=== PATIENT | male | born 1990 | race Caucasian/White ===

== ENCOUNTER 2021-06-15 10:19 | Emergency (ER) | payer BC, SELFPAY ==
[2021-05-21 16:57] VITALS: BMI 33.5
[2021-06-15 10:20] VITALS: BP 165/98; PULSE 82; RESP 16; TEMP 36.3; O2SAT 98; BMI 32.5
--- NOTE | 2021-06-15 10:36 | EX.ED.DYSGE1 ---
HPI History of Present Illness Chief Complaint: Anxiety Detail of Chief Complaint: Anxiety and panic attacks ongoing for about a year Informant: patient Narrative Narrative: Patient presents to the emergency department complaint of frequent panic attacks. Patient states that he is been dealing with them for over a year. Patient states that he used to drink heavily but really has mostly stopped drinking although he did have 2 beers yesterday. Patient will get episodes where he feels very jittery and short of breath and chest feels real tight. Patient states that he will be quite labile in mood and then states that he cannot remember events or what happened but he is awake and functioning. He denies any seizure activity. Denies recent illness otherwise. Patient states he cannot get into any mental health providers for follow-up. Patient states that his primary care physician at one point prescribed him bupropion but after day 8 he started feeling suicidal on it and stopped taking it. Patient currently denies suicidal ideations. Prior similar symptoms: Yes PFSH PFSH Medical History (Updated 06/15/21 @ 11:[address] Matthieu Rodriguez, DO) Alcohol abuse with withdrawal Depression Home Medications albuterol sulfate 90 mcg/actuation aerosol inhaler 2 puff INHALATION Q4H PRN #6.7 g 04/30/21 [Rx Last Taken Unknown] lorazepam [Ativan] 1 mg PO TID PRN #14 tab 06/15/21 [Rx Last Taken Unknown] omeprazole 20 mg PO DAILY 06/15/21 [History Last Taken Unknown] Allergy/AdvReac Type Severity Reaction Status Date / Time No Known Allergies Allergy Verified 06/15/21 10:20 Family History (Updated 05/21/21 @ 20:16 by Jeaneth Norris NP, [employer]) Other Anxiety Social History Smoking Status: Current every day smoker tobacco type: cigarettes ROS ROS ED Constitutional Constitutional ED: Reports systems reviewed and no addt'l complaints, except as documented; Denies body ache(s), change in weight or chills Eyes Eyes: Denies acute decrease in peripheral vision, change in vision, double vision or loss of vision ENT ENT ED: Reports none; Denies ear pain, lip swelling, loss taste/smell, neck pain, otalgia or sore throat Cardiovascular Cardiovascular: Reports none and chest pain; Denies abdominal pain, chest pain with activity, leg edema, lightheadedness, palpitations, rapid heart rate or syncope Respiratory/Chest Respiratory/Chest: Reports none and dyspnea; Denies change in mental status, dry cough, hemoptysis, shortness of breath at rest or shortness of breath with exertion Gastrointestinal Gastrointestinal: Reports none; Denies abdominal pain, change in stool character, diarrhea, hematemesis, hematochezia, melena, rectal bleeding or vomiting Genitourinary Genitourinary ED: Reports none; Denies abdominal discomfort, anuria, dysuria, genital pain or polyuria Musculoskeletal Musculoskeletal: Reports none; Denies arthralgias, back pain, difficulty walking, extremity pain, muscle weakness or myalgias Integumentary Reports none; Denies abscess or rash Neurologic Neurologic: Reports none; Denies abnormal gait, confusion, focal weakness, frequent falls, headache(s), loss of vision, numbness, paresthesias, radicular pain, vertigo or weakness Psychiatric Psychiatric: Reports systems reviewed and no addt'l complaints, except as documented, none and anxiety; Denies behavioral changes, confusion, difficulty concentrating, hallucinations, suicidal ideation, tactile hallucinations or visual hallucinations Endocrine Endocrinology: Denies none, cold intolerance, excessive sweating, fatigue or heat intolerance Hematologic/Lymphatic Hematologic/Lymphatic: Reports none; Denies anemia, easy bleeding or easy bruising Allergic/Immunologic Allergic/Immunologic ED: Denies as per HPI, none, lip swelling, mouth swelling, throat swelling, tongue swelling or hives EXAM Physical Exam Const Vital Signs: 06/15/21 10:20 Temperature 97.3 F L Temperature Source Temporal Pulse Rate 82 Respiratory Rate 16 Blood Pressure 165/98 H Blood Pressure Mean 120 Pulse Ox 98 Oxygen Delivery Method Room Air Positive well nourished and well developed General Appearance ED: well developed and NAD HEENT Reports TM's clear and moist mucous membranes normocephalic and atraumatic; Negative for trauma or tenderness Tympanic Membrane ED: Yes TM's clear Eyes PERRL and EOMs intact bilaterally General Eye ED: Negative for pale conjunctiva or scleral icterus Neck no lymphadenopathy, supple and no JVD General: Negative for tenderness Chest Wall inspection of chest normal and palpation of chest normal Chest: Negative for tenderness Resp normal respiratory effort and clear to auscultation bilaterally Effort and Inspection: Negative for respiratory distress or pain with movement Auscultation: Negative for rhonchi, wheezes or diminished lung sounds Cardio regular rate, regular rhythm, S1 normal heart sound, S2 normal heart sound and no murmurs Peripheral Pulses: pulses 2+ throughout GI normal to inspection, nondistended, normoactive bowel sounds, soft to palpation, non-tender, non-distended and no masses Back/Spine no CVA tenderness and no thoracic nor lumbar tenderness Extremity normal to inspection General Extremety ED: Negative for edema General Extremity: Negative for edema Neuro oriented x3, CN's II-XII intact bilaterally, no sensory deficits noted and gait normal Sensorium / Orientation: awake, alert, oriented to person, oriented to place and oriented to time Motor Exam: strength 5/5 throughout and strength abnormal Psych mental status grossly normal Skin no rashes or lesions noted and no wounds MDM MDM MDM Narrative Medical decision making narrative: Patient was evaluated by social media executive in the department and was able to arrange outpatient therapy for him starting in 2 days. Patient also received 1 mg of Ativan p.o. and he did feel improved with that. Patient will be given a prescription for Ativan. Lab Data Attestation: I reviewed the patient's lab results. Discharge Plan Triage Chief Complaint: Anxiety ED Provider: Matthieu Rodriguez Dx/Rx/DC Orders Clinical Impression: Anxiety Instructions: Anxiety Disorders Tx Therapy, ED Panic Attack Prescriptions: New lorazepam [Ativan] 1 mg tablet 1 mg PO TID PRN (Reason: anxiety) Qty: 14 RF: 0 No Action albuterol sulfate [Ventolin HFA] 90 mcg/actuation HFA aerosol inhaler 2 puff inhalation Q4H PRN (Reason: SOB) Qty: 6.7 RF: 3 omeprazole 20 mg Tablet,Delayed Release (Dr/Ec) 20 mg PO DAILY RF: 0 Primary Care Provider: Jeaneth Norris NP Referrals: Jeaneth Norris NP, [employer] [Primary Care Provider] - Activity Restrictions/Additional Instructions: Follow-up as directed with outpatient therapy.
[2021-06-15] MEDS: LORazepam 1 MG Tablet PO (10:47)
[2021-06-15 11:41] VITALS: RESP 16
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
== END 2021-06-15 11:42 | disposition home or self-care (01) ==
LOC: ED 10:43
PROVIDERS: Emergency Provider Emergency Medicine; PCP Nurse Practitioner
DX: F41.9 Anxiety disorder, unspecified (principal); F17.210 Nicotine dependence, cigarettes, uncomplicated; F32.9 Major depressive disorder, single episode, unspecified; Z79.899 Other long term (current) drug therapy
CPT/HCPCS: 99283

== ENCOUNTER 2021-06-30 09:11 | Outpatient (RCR) | payer BC, SELFPAY ==
[2021-06-17 17:55] VITALS: BMI 34.4
--- NOTE | 2021-06-30 09:02 | BH.SGPN.GN ---
Behaviors/Verbalizations/Mental Status: []Client alert and oriented, casually dressed and groomed. Eye contact good. Motor activity appropriate. Speech within normal limits. Affect congruent, mood depressed and anxious. Thoughts linear, logical, no signs of hallucinations or delusions. 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 Client reports feeling anxious this morning and expressed this is due to adjusting to the group environment. Client shared what led to IOP admission, noting struggles with depression, anxiety, and sobriety. Identified wanting to feel more connected to his life and able to cope with the daily stressors he experiences without numbing himself. Identified additionally wanting to work on improving his self-esteem and relationships with his children. Appeared to benefit from supportive feedback provided by group. Will continue IOP tx to prevent decompensation, improve mood stability, and improve management of anxiety. Narrative Note: []
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
--- NOTE | 2021-06-30 11:15 | BH.SGPN.GN ---
Behaviors/Verbalizations/Mental Status: []Client alert and oriented, casually dressed and appropriately groomed. Eye contact good. Motor activity appropriate. Speech within normal limits. Affect constricted, mood dyshtymic. Thoughts linear, logical, no signs of hallucinations or delusions. Client Response/Progress/Benefit: []Client responded well to session, taking notes and participating in worksheet discussion. Client set a goal to gain control over his negativity. Client shared ?I don?t want to be the person that only looks at the negative stuff.? Client wants to be able to work on this by identifying once positive thing each day. Client shared continuing to come to therapy and talking with his healthy supports will help client accomplish this goal. Appeared to benefit from identifying a small goal to benefit mental health. Will continue IOP tx to prevent decompensation, improve overall functioning, and increase healthy coping skills. Narrative Note: []
[2021-06-30 11:56] VITALS: BP 160/89; PULSE 48
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
--- NOTE | 2021-06-30 13:04 | BH.DR.ITP ---
Initial Treatment Plan Patient Information Visit Information: ADMISSION DATE: EXPECTED LOS: 4-6 weeks Problems/Symptoms Problem #1:: Anxiety Symptom:: Panic attacks, worry, rumination Problem #2:: Depression Symptom:: Sadness, anhedonia, lack of motivation, worthlessness, hopelessness, low energy, decreased concentration, passive thoughts of , history of passive suicidal ideation.
--- NOTE | 2021-06-30 14:16 | BH.COMM_ITS ---
Communication Note - Communication with Client Communication Note: Met with pt to complete initial paperwork. No significant changes since pre-admission screening. Completed [place] Suicide Screening. Current risk is low. Client admits to having passive suicidal ideations about two times a week within the last month. Denies any active suicidal ideations, plan, or intent. Future oriented and his and children are his protective factors. No history of suicide attempts or self-injurious behaviors. Denies access to weapons.
--- NOTE | 2021-07-05 10:10 | BH.SGPN.GN ---
Behaviors/Verbalizations/Mental Status: [] Eye contact is good. Motor activity is appropriate. Appearance is casual. Speech is Appropriate. Mood is anxious. Affect is congruent. Thoughts are linear and logical. No evidence of psychosis. Client Response/Progress/Benefit: [] Pt did not participate in group discussion however was active in group experiential activity. Attentive during psychoeducation and while peers provided insight on definition and benefits of self-care. Benefits that the group was able to identify included; improves relationships, decreases anger and burnout, gives one a sense of identity, improves communication, increases awareness of values/needs, can rejuvenate oneself, helps one be more engaged, improves physical health, and can improve productivity. Pt participated in activity and was able to make connect between experiential group task and self-care. Group processed the activity and identified consequences of neglecting self-care which can include; hospitalization, suicide attempts, lose supports, and poor overall functioning. Benefited from group by increasing awareness of benefits to self-care and consequences of neglecting self-care. Will continue in IOP to prevent decompensation, decrease daily panic attacks, and improve functioning to return to work. Narrative Note: []
--- NOTE | 2021-07-05 11:10 | BH.SGPN.GN ---
Behaviors/Verbalizations/Mental Status: []Client alert and oriented, casually dressed and groomed. Eye contact fair. Motor activity appropriate. Speech within normal limits. Affect constricted, mood depressed. Thoughts linear, logical, no signs of hallucinations or delusions. Client Response/Progress/Benefit: []Client engaged participant AEB client taking notes during discussion and listened attentively to peers. Participated in group discussion on the various areas of self-care, benefits, and types of self-care activities for each area. Client completed worksheet in which client identified current self-care practices and what self-care activities client wants to start using. Client left group before sharing what self-care area he wants to improve upon. Client was present during the discussion on the myths/barriers that prevent people from engaging in self-care. Client helped the group challenge these and highlight why self-care is important. Will continue IOP tx to prevent decompensation and learn healthy coping skills. Narrative Note: []
--- NOTE | 2021-07-05 12:05 | BH.COMM ---
Communication Note - Communication with Client Communication Note: Pt with patient for under 15 minutes to discuss how is adapting to IOP, to begin treatment planning, and additional case management issues. Pt reports that his [place] insurance termed on 07/02/21 however he did apply for [place]. His transportation has been arranged through the hospital and he reports that he remains on leave from work however did not qualify for FMLA or disability. Last alcohol use was 06/21/21. Given handout to complete on disadvantages to drinking to use. Hope is to carry this list with him and to review when he has urges.
--- NOTE | 2021-07-05 13:36 | BH.MTP_ITS ---
Master Treatment Plan - Patient Information Program Physician:: Susu Khan Primary Therapist:: Francisco Javier Stevenson - Psychiatric Diagnoses Psychiatric Diagnoses:: 1. Major depressive disorder, recurrent, severe without psychosis. 2. Panic disorder. 3. Alcohol use disorder Diagnosis Code(s):: F33.2 - Estimated LOS Estimated LOS (in weeks):: 8 Problem/Goal #1 - Problem/Goal #1 Stated Goal:: Stabilize anxiety level while increasing ability to function on daily basis AEB by reduction in DSM 5 Cross-cutting outcome measurement through Intensive Outpatient Services. Description of Barriers: Limited coping skills, significant psychosocial stressors, substance abuse, legal issues, and transportation issues. Functional Impact: Due to anxiety and daily panic pt has been unable to function at work and is currently on leave. - Objectives Objective #1 Stated Objective: Client will learn and implement 2-3 calming skills to reduce overall anxiety and manage anxiety symptoms. Interventions: Individual and group counseling will teach client calming/relaxation skills and how to apply these skills to everyday life. Discharge Criteria: Client will have achieved this goal when can verbalize at least 2 calming strategies and have practiced techniques to help reduce anxiety. Target Date: 07/28/21 Review Date: 08/11/21 Objective #2 Stated Objective: Client will identify 2-3 cognitive distortions that lead to rumination and learn 2-3 ways to manage these thoughts to better manage anxiety Interventions: Through individual and group counseling will provide education on the most common cognitive distortions and teach client the connection between thoughts, emotions, and feelings. Therapist will assist client in identifying, challenging, and replacing dysfunctional thoughts with positive, more realistic thoughts. Discharge Criteria: Will be able to identify 2-3 frequently used cognitive distortions and ways to challenge or reframe . Target Date: 07/28/21 Review Date: 08/11/21 Problem/Goal #2 - Problem/Goal #2 Stated Goal:: Client will reduce depression and hopelessness due to Major Depressive Disorder through IOP Services AEB by a reduction on depressive scale of DSM 5 outcomes measurement. Description of Barriers: Limited coping skills, significant psychosocial stressors, substance abuse, legal issues, and transportation issues. Functional Impact: Depression has impacted motivation and energy which have resulted in increased isolation and feelings of worthlessness as well as interfering with familial and work responsibilities. Inability to manage depression as well as anxiety has led to self-medication through alcohol which has recently led to DUI. - Objectives Objective #1 Stated Objective: Client will learn and utilize 2-3 healthy coping strategies to manage depressive symptoms and be able to consistently utilize these skills. Interventions: Through individual and group counseling will help client identify their triggers and teach client various coping strategies to effectively cope with depressive symptoms. Discharge Criteria: Pt will be able to identify 2-3 coping strategies and self- report consistent use of skills and decrease in frequency, severity, and intensity of depressive symptoms. Target Date: 07/28/21 Review Date: 08/11/21 Objective #2 Stated Objective: Client will implement relapse prevention strategies to utilize when urge to drink to cope with overwhelming depression. Interventions: Will work with client to increase education on addiction cycle, personal disadvantages to drinking, identify high risk trigger situations, and develop a relapse prevention plan to put in place when urge to drink. Discharge Criteria: Completed a relapse prevention plan for managing urges and high-risk trigger situations. Target Date: 07/28/21 Review Date: 08/11/21
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
--- NOTE | 2021-07-08 10:15 | BH.SGPN.GN ---
Behaviors/Verbalizations/Mental Status: []Client alert and oriented, casually dressed and groomed. Eye contact good. Motor activity appropriate. Speech within normal limits. Affect congruent, mood anxious and dysthymic. Thoughts linear, logical, no signs of hallucinations or delusions. Client Response/Progress/Benefit: []Pt was an engaged though mostly passive participant in group discussion, providing some input and was attentive during psychoeducation. Participated in short activity about automatic thoughts, indicated relating to how automatic thoughts can influence beliefs, self-talk, and communication with others. Group was primarily educational; therapist introduced and gave examples of the 10 cognitive distortions. Benefited from education and increased awareness of cognitive distortions and role that they play in negative thoughts and emotions. Pt reported connecting with the following distortions: all or nothing thinking, labeling, should and musts, and mind reading. Shared that distortions have kept him from believing in himself and resulted in increased negative self-talk. Will continue IOP tx to prevent decompensation, increase healthy coping skills, and improve daily functioning impacted by depression and anxiety. Narrative Note: []
--- NOTE | 2021-07-08 11:02 | BH.MDN_ITS ---
Multi-Disciplinary Note - Note 60-min Individual Time Started:: 09:00 Date: 07/08/21 Purpose of session/treatment goals addressed:: Begin to develop treatment plan. Review current symptoms and progress in IOP. Eye Contact:: Fair Motor Activity:: Restless Appearance:: Casual Speech:: Appropriate Mood:: Anxious Affect:: Congruent Thoughts:: Linear, Logical, No evidence of hallucinations/delusions noted Staff Interventions:: Utilized AL techniques to elicit change. Reviewed worksheet. Provided handouts on mindfulness and a mood tracker. Plan is to practice identifying his anxiety levels throughout the day. Client Response:: Pt reports progress since starting IOP stating I'm waking up feeling more hopeful. Feels that his new medication has been helpful as well stating anxiety is less frequent and intense. Decreased irritability. In talking further pt reports that he is not reacting as quickly to triggers. He reports that simply seeking treatment and addressing his struggles has helped. When asked about goals for treatment pt stated I want to feel more comfortable with myself and not put everyone else first. Also reports hx of keeping emotions internal and fear of sharing with support. [place] if he was honest others would abandon him. Also trust issues with spouse. Insight in the past several weeks that spouse will not abandon him and that emotionally connecting has actually improved relationship. Other goals would be to learn healthy ways to manage emotions and decrease panic attacks. In the past would drink alcohol to manage distress. Needs healthy coping skills. Receptive to education on mindfulness skills and 5 senses. Shared an event where he was able to identify anxiety escalating and utilized skills to stop the escalation. Discussed triggers to anxiety related to work are more internal ruminating thoughts about all kinds of things. This is progress as prior to starting IOP he believed that panic at work had no trigger and was powerless over it. Risks/Concerns:: No risks or concerns noted. Progress Toward Goals/Plan:: Progress noted per pt report. Increased insight and awareness since starting IOP. Completed Disadvantages to drinking worksheet in which he identified several consequences to drinking and motivations to remain sober. Will take a picture of this and refer to it if he has desire or urge to drink. Has begun to utilize skills. Continues to report panic attacks throughout the week. Depression and irritability are also impacting his functioning. Plan is to continue in IOP to prevent decompensation, increase healthy coping skills, and improve functioning to return to work. Time Stopped:: 09:55
--- NOTE | 2021-07-08 11:05 | BH.SGPN.GN ---
Addendum entered and electronically signed by Verenice Gonzalez 07/15/21 13:40: error in date. correct date is 07/15/21 Original Note: Behaviors/Verbalizations/Mental Status: []Client alert and oriented, casually dressed and groomed. Eye contact good. Motor activity appropriate. Speech within normal limits. Affect congruent, mood euthymic. Thoughts linear, logical, no signs of hallucinations or delusions. Client Response/Progress/Benefit: []Client responded well to session, actively listening and providing examples. Group discussed the different categories of coping skills which included distraction, emotional release, grounding, self-love, and thought challenging. Client participated in creating a coping skills ?menu? from the five categories of coping skills. Client's coping skill menu included: making a positive quote list, journaling, 5-senses, writing out mental health wins, and using self-compassion. Progress noted in client?s report on reduced depression over the past week and application of coping skills. Appeared to benefit from increasing repertoire of healthy coping skills. Will continue tx to promote mood stability, increase positive self-talk, and maintain sobriety. Narrative Note: []
--- NOTE | 2021-07-08 11:15 | BH.SGPN.GN ---
Behaviors/Verbalizations/Mental Status: [] Eye contact is good. Motor activity is appropriate. Appearance is casual. Speech is Appropriate. Mood is anxious. Affect is congruent. Thoughts are linear and logical. No evidence of psychosis. Client Response/Progress/Benefit: [] Pt was an active participant in group discussion and activity. Attentive during psychoeducation on cognitive distortions not discussed in previous group. Pt was an active participant in Cognitive Distortions Jeopardy Engaged in game as patient utilized notes from psychoeducation on cog distortions to answer questions. Able to practice re-framing cog distortions with peers to obtain points for the game. Experiential activity was beneficial as it provided a way for patient to review notes and handouts during psychoeducation to answer questions for the game. Will continue in IOP to decrease panic attacks, increase healthy coping, and improve functioning to return to work. Narrative Note: []
--- NOTE | 2021-07-09 09:00 | BH.SGPN.GN ---
Behaviors/Verbalizations/Mental Status: [] Eye contact is good. Motor activity is appropriate. Appearance is casual. Speech is Appropriate. Mood is anxious. Affect is congruent. Thoughts are linear and logical. No evidence of psychosis. Reviewed daily check in sheet and no reports of suicidal ideations or intent. Client Response/Progress/Benefit: [] Pt was an active participant in group discussion on positive psychology. Attentive. Provided appropriate feedback. Daily symptom tracker notes /5 for depression and anxiety/panic. Emotion for today is calm. Share mental health win as becoming more aware of his emotions. Able to identify yesterday that his anxiety/frustration level was escalating. When he noticed this he took action and utilized some coping skills which lowered his anxiety. Believes that this helped him as well as others around him. Looking forward to a very relaxing weekend with plans to practice skills. Progress noted per pt report. Beneifted from group discussion, feedback, and support. Will continue in IOP to decrease panic attacks, increase healthy coping skills, and improve functioning to return to work. Narrative Note: []
--- NOTE | 2021-07-09 10:03 | BH.SGPN.GN ---
Behaviors/Verbalizations/Mental Status: []Client alert and oriented, casually dressed and groomed. Eye contact good. Motor activity appropriate. Speech within normal limits. Affect constricted, mood calm. Thoughts linear, logical, no signs of hallucinations or delusions. Client Response/Progress/Benefit: []Client engaged in session AEB taking notes and contributing to discussion. Client shared connecting with the importance of setting boundaries, but client and group reported there are a lot of barriers to setting boundaries. Client assisted group with identifying benefits of setting boundaries such as improved relationships, reduced anxiety, and increased self-esteem. Client shared people are fearful of setting boundaries because they do not want to hurt people?s feelings, but feelings get hurt either way. Listened during psychoeducation on different types of boundaries. Client seemed to benefit from increased awareness of how boundaries impact mental health and the different types of boundaries there are. Progress noted in client?s report of utilizing grounding skills yesterday. Will continue IOP tx to improve emotional regulation skills, improve mood stability, and learn healthy coping skills. Narrative Note: []
--- NOTE | 2021-07-09 11:12 | BH.SGPN.GN ---
Behaviors/Verbalizations/Mental Status: [] Client alert and oriented, casually dressed and appropriately groomed. Eye contact good. Motor activity appropriate. Speech within normal limits. Affect congruent, mood dysthymic, anxious. Thoughts linear and intact. no signs of delusions or hallucinations. Client Response/Progress/Benefit: [] Client responded well to session AEB listening attentively to peers and providing input throughout. This is progress and client appears to be more engaged and capable of internalizing materials learned. Client completed the boundary self-assessment activity and processed within their small group. Client was attentive and contributed during psychoeducation on the different boundary styles. Client stated struggling with having really rigid boundaries which has negatively impacted relationships and prevented him from seeking help in the past. Participated in group discussion brainstorming various strategies for improving healthy personal boundaries. Client identified wanting to improve his own awareness of what his boundaries currently look like and what he would like them to be. Shared increasing awareness can help him decide what steps to take to begin improving boundaries in a variety of areas. Will continue IOP tx to continue challenging negative and ruminating thoughts, improve mood management, and prevent decompensation. Narrative Note: []
--- NOTE | 2021-07-12 09:00 | BH.SGPN.GN ---
Behaviors/Verbalizations/Mental Status: []Client alert and oriented, casually dressed and groomed. Eye contact good. Motor activity appropriate. Speech within normal limits. Affect congruent, mood anxious and depressed. Thoughts linear, logical, no signs of hallucinations or delusions. Reviewed client?s symptom tracker, no risk for suicidal ideation, plan, or intent as of 07/12/21 Client Response/Progress/Benefit: []Client responded well to session, attentive, providing supportive feedback and suggestions, and willing to process with group. Client reports feeling ?depressed? today as he had a difficult day yesterday. Discussed feeling depressed for much of the day with no real trigger or contributing sources. Shared he began to experience negative thoughts and struggled with challenging and reframing these thoughts. Did well to identify personal positives despite struggling, which included: making efforts to use opposite action to improve his mood via taking a walk, listening to music, and talking to his . Additional positive noted as recognizing this was one hard day and not ?starting over? in his mental health progress. Appeared to benefit from group support and encouragement. Progress in improved use of healthy coping mechanisms. Will continue IOP tx to prevent decompensation, improve mood stability, and promote healthy change behaviors. Narrative Note: []
--- NOTE | 2021-07-12 10:05 | BH.SGPN.GN ---
Behaviors/Verbalizations/Mental Status: []Client alert and oriented, casually dressed and groomed. Eye contact fair. Motor activity appropriate. Speech within normal limits. Affect constricted, mood dysthymic. Thoughts linear, logical, no signs of hallucinations or delusions. Client Response/Progress/Benefit: []Client passive participant AEB client providing limited contributions to group, however taking notes and appeared to listen to others throughout. Connected with discussion on crisis and how coping with external crises by using unhealthy coping skills could result in a personal crisis. Group reflected on the importance of having awareness of personal warning signs in order to prevent reaching crisis point. Group identified potential warning signs for crisis and client completed the personal warning signs worksheet. Client identified personal crisis warning signs to include: uncontrollable worry, negative thinking, and urges to self-medicate/drink. Client benefited by increasing awareness of what leads to crisis and personal warning signs. Client will continue IOP to increase healthy coping skills, challenge negative thoughts and prevent decompensation. Narrative Note: []
--- NOTE | 2021-07-12 10:08 | BH.SGPN.GN ---
Behaviors/Verbalizations/Mental Status: []Client alert and oriented, casually dressed and groomed. Eye contact good. Motor activity appropriate. Speech within normal limits. Affect constricted, mood dysthymic. Thoughts linear, logical, no signs of hallucinations or delusions Client Response/Progress/Benefit: []Client responded well to session as evidenced by client listening attentively to others and providing strategies during discussion. Client identified warning signs for crisis and gained further awareness of earliest warning signs. Client created a crisis action plan to help client better manage warning signs for crisis. Client?s action plan for uncontrollable worries, negative thinking, and urges to self-medicate/drink included coping skills such as: grounding, weighing the pros and cons, identifying the distortion, writing out thought challenges, attending AA, and DDD. Client stated he also wants to continue setting aside 15 minutes a day for himself to reduce stress and prevent crisis. Client appeared to benefit from creating a crisis action plan and increasing self-awareness. Client to continue IOP tx to improve mood stability and emotional regulation skills. Narrative Note: []
--- NOTE | 2021-07-14 09:00 | BH.SGPN.GN ---
Behaviors/Verbalizations/Mental Status: []Client alert and oriented, casually dressed and groomed. Eye contact good. Motor activity appropriate. Speech within normal limits. Affect constricted, mood dysthymic. Thoughts linear, logical, no signs of hallucinations or delusions. Reviewed client?s symptom tracker, no risk for suicidal ideation, plan, or intent as of 07/14/21 Client Response/Progress/Benefit: []Client responded well to session, receptive to encouragement. Client reports feeling hopeful this morning. Client stated this weekend was difficult and he experienced increased depressive symptoms. Client shared I kept thinking screw this I'm going to drink but client kept busy instead and did not relapse. Client stated coming to group Monday helped a lot as it allowed a healthy distraction and positive support. Client has also been trying to remind himself that he can change his bad moments. Client's scores on the daily symptom tracker were 3/5 for depression, 3/5 for anxiety, and 2/5 for irritability which is decreased from Monday's scores. Client appeared to benefit from processing emotions and reflecting on wins. Will continue IOP tx to increase healthy coping skills, reduce negative thinking, and improve daily functioning. Narrative Note: []
--- NOTE | 2021-07-14 11:15 | BH.SGPN.GN ---
Behaviors/Verbalizations/Mental Status: []Client alert and oriented, casual dress, hygiene tended to. Eye contact fair. Motor activity appropriate. Speech within normal limits. Affect constricted, mood anxious.. Thoughts linear, logical, no signs of hallucinations or delusions. Client Response/Progress/Benefit: []Client responded well to session AEB contributing to discussion. Client participated in the discussion of how each resiliency component can help increase personal resiliency. Client engaged in activity, working cooperatively with group. Client?s goal to increase resilience is to work on keeping things in perspective. Client stated his goal is to increase frequency of being in the present moment by using grounding tools. Client stated he is often worried about what is to come which results in him catastrophizing. Pt seemed to benefit from identifying goal to improve her personal resilience. Will continue IOP to continue use of healthy coping, challenge distorted thoughts and prevent decompensation. Narrative Note: []
--- NOTE | 2021-07-14 11:29 | BH.MDN_ITS ---
Multi-Disciplinary Note - Note 30-min Individual Time Started:: 10:30 Date: 07/14/21 Purpose of session/treatment goals addressed:: Met to review current symptom and progress in IOP. Addressed treatment goals 1,2 and 3. Eye Contact:: Good Motor Activity:: Appropriate Appearance:: Casual Speech:: Appropriate Mood:: Depressed Affect:: Flat Thoughts:: Linear, Logical, No evidence of hallucinations/delusions noted Staff Interventions:: thought challenging, motivational interviewing, CBT techniques, mindfulness skills, rapport building, discharge planning Client Response:: Pt reports that he struggled emotionally on Monday and Monday. I woke up feeling off on Monday. States I felt myself shut down... my mind was going nuts. Notes ruminations all day long. Began focusing on stressors such as legal issues, kids going back to school, work, and other psychosocial stressors. He did utilize skills learned in IOP at times during the day such as mindfulness and did report they helped. Penelope improved when he was able to process his struggles during 1st group on 07/12/21. Also did have urges to drink however reports that he did not relapse. He reviewed his disadvantages to drinking worksheet which was helpful and was able to make a healthy decision. He was proud of himself. Able to identify that while he did have extended depression and anxiety he believes that the frequency, intensity, and severity were less than in the previous months. We processed the events, thoughts, and behaviors over the weekend and identified additional skills that he could use in the future. We reviewed cognitive distortions and developed some affirmations to counter anxious and what if thinking. Pt practiced some realistic thoughts that could counter ruminations in the future. Open to education on accepting and sitting with anxiety. Risks/Concerns:: no risks or concerns noted. Progress Toward Goals/Plan:: Regression noted over the weekend due to significant anxiety, ruminations, urges to drink, and depression related to negative thoughts. Despite struggles pt continues to attempt to utilize skills. Plan is to continue with [facility] to further educate on healthy coping skills, c ognitive distortions, and relapse prevention skills. Discussion had on making an intake appointment with [facility] to begin to establish aftercare. Met with psychiatrist today who increased Lexapro. Time Stopped:: 11:00
--- NOTE | 2021-07-14 12:56 | PCM.BH.PN_ITS ---
Progress Note Progress Note: History of Present Illness/Interim History: [] The patient is a 30-year-old male who is seen in follow-up at the [facility] behavioral health IOP program. I last saw the patient 2 weeks ago and at that time his Lexapro was increased to 10 mg p.o. daily. In addition the Nuedexta was discontinued. The patient was given 7 tablets of Ativan to use only for severe panic attacks. The patient states that he feels his panic attacks have improved a little bit but he still says he gets 1 or 2 a week and sometimes dissociates when he has them. He denies using any Monster drinks and he has only had 1 cup of coffee in the morning he says. He remains sober from any alcohol use but has not started the substance IOP program yet. His mood remains depressed and has not changed that much although he feels he might be slightly better. He has been engaged in the program and is making progress in the IOP program according to staff. The patient took all of his Ativan in the first 10 days or so. He denies any alcohol use and only has what might be called cravings when he gets upset or down. He has always had a hard time sleeping any remains having somewhat of a hard time with sleep. He feels that the skills he is learning in the IOP program are really helping him deal with hi s low moments. He is on leave of absence from work still. He denies any passive thoughts of now. He denies suicidal ideation, homicidal ideation, hallucinations or delusions. Current Psychiatric Medications: [] Lexapro 10 mg p.o. daily (x2 weeks now); Ativan 1 minimal milligram p.o. as needed for panic attacks, #7) Mental Status Examination: [] The patient is a 30-year-old male who appears normal for stated age and is seen wearing a mask due to the pandemic. He is casually dressed and groomed with good hygiene. He has no psychomotor agitation or retardation. Eye contact is good and speech is normal rate and rhythm and fluent with no pressure. Mood is depressed. Affect is constricted but full at times. Thought process is goal-directed and organized. Thought content: There is no evidence of passive thoughts of , suicidal ideation, homicidal ideation, hallucinations or delusions. Judgment remains limited but improving. Insight is limited but improving. Impulsivity is high. Diagnoses: [] 1. Major depressive disorder, recurrent, severe without psychosis 2. Panic disorder 3. Alcohol use disorder 4. Nicotine use disorder 5. Primary support and work issues Plan: [] The patient will continue the IOP program at [facility] as the structure, support, education and group therapy will hopefully prevent worsening of the patient's symptoms that might require hospitalization. The patient felt safe during the interview and if it anytime he does not feel safe he will let us know or go to the emergency room. The risks, options, possible complications and side effects of medications were discussed with the patient and he understands and accepts these. Again discussion was had regarding the need for sobriety from alcohol and all drugs. The patient understands that I will not give him any more Ativan. He agrees to increase his Lexapro to 20 mg p.o. daily. He is given the option of Campral to reduce cravings for alcohol or naltrexone to reduce cravings and possibly the amount he would drink if he relapses. The patient refuses Campral or naltrexone. He will continue to follow-up with his outpatient medical and psychiatric providers and I will see the patient in follow-up in 2 weeks.
--- NOTE | 2021-07-15 09:00 | BH.SGPN.GN ---
Behaviors/Verbalizations/Mental Status: [] Eye contact is good. Motor activity is appropriate. Appearance is casual. Speech is Appropriate. Mood is depressed. Affect is flat. Thoughts are linear and logical. Reviewed daily check in sheet and no reports of suicidal ideations or intent. Client Response/Progress/Benefit: [] Pt was an active participant in group discussion. Attentive. Provided appropriate feedback. Daily symptom tracker noted 3/5 for depression and anxiety and 2/5 for irritability. Emotion for today is happy. [facility] win as creating and verbalizing affirmations. States that verbalizing affirmations out loud is more helpful for him and he discussed the reasons behind this. He shared other wins with the goup including being more present with his step-kids and attending a parent-teacher conference. Able to identify some skills that he has been utilizing. Stressor is that today is his bio-son's b-day and he is not able to see him due to custody issues. He states I'm going to make today a good day. Reports taking active role in his mental health and mood rather than being passive and reacting. Progress noted per pt report. Benefited from group support, feedback, and encouragement. Will continue in IOP to maintain gains, increase health coping, and improve functioning to return to work. Narrative Note: []
--- NOTE | 2021-07-15 10:05 | BH.SGPN.GN ---
Behaviors/Verbalizations/Mental Status: []Client alert and oriented, casually dressed and groomed. Eye contact good. Motor activity appropriate. Speech within normal limits. Affect congruent, mood euthymic. Thoughts linear, logical, no signs of hallucinations or delusions. Client Response/Progress/Benefit: [] Pt was an active participant in group discussion and activity. Attentive during discussion of what coping skills are and how people learn coping skills. Pt worked with peers to identify why people use unhealthy coping skills such as it is easier, habit, and short-term relief. Worked within small group to complete challenge activity requiring use of several coping skills. Did well to provide and receive supportive feedback. Group processed the activity and connected it back to having a strong base of internal and external healthy coping skills. Benefited from increased awareness of coping skills, benefits in using healthy coping skills, and common reasons why people use unhealthy coping skills. Will continue in IOP to maintain sobriety, increase emotional regulation skills, and improve overall functioning. Narrative Note: []
--- NOTE | 2021-07-19 09:00 | BH.SGPN.GN ---
Behaviors/Verbalizations/Mental Status: [] Eye contact is good. Motor activity is appropriate. Appearance is casual. Speech is Appropriate. Mood is depressed. Affect is flat. Thoughts are linear and logical. No evidence of psychosis. Reviewed daily check in sheet and no reports of suicidal ideations or intent. Client Response/Progress/Benefit: [] Pt was an active participant in group discussion. Emotion for today is content. Daily symptom tracker notes 2/5 for depression. Mental health wins include utilizing skills, self-care, and talking with support. Had a conversation with support that I've been avoiding. Believes that the conversation went well and feels that it was beneficial. Overcame struggle to be vulnerable in the past several weeks which has been helpful. Progress noted per pt report. Benefited from group support, encouragement, and feedback. Will continue in IOP to prevent decompensation, increase healthy coping, and improve functioning to return to work. Narrative Note: []
--- NOTE | 2021-07-19 10:10 | BH.SGPN.GN ---
Behaviors/Verbalizations/Mental Status: []Client alert and oriented, casually dressed and groomed. Eye contact fair. Motor activity appropriate. Speech within normal limits. Affect constricted, mood dysthymic. Thoughts linear, logical, no signs of hallucinations or delusions. Client Response/Progress/Benefit: []Client receptive to session, mostly quiet but appeared to listen attentively to others. Provided input as the group brainstormed the positive and negative aspects of stress on physical and mental health. Group did well to identify the benefits of stress as well as the impact of distress on performance and mental health. Client identified top stressors court issues involving his kids, family health issues, and taking time off work which increases financial stress. Client reported his stress jar is half full and when it overflows client reports he will shut down, isolate and eventually has anger outbursts. Client seemed to benefit from increased self-awareness of current stressors. Recommended to continue IOP tx to promote use of healthy coping skills, reduce negative thinking, and prevent decompensation.
--- NOTE | 2021-07-19 11:15 | BH.SGPN.GN ---
Behaviors/Verbalizations/Mental Status: []Client alert and oriented, casually dressed and groomed. Eye contact good. Motor activity appropriate. Speech within normal limits. Affect congruent, mood euthymic. Thoughts linear, logical, no signs of hallucinations or delusions. Client Response/Progress/Benefit: []Client engaged in session AEB listening attentively to others, providing input, and taking notes throughout discussions. Client was an active participant in challenge activity and did well to use healthy communication and stress management skills to help group with [id number] problem solving. Took on a more engaged role during such. Client remained attentive during discussion about the 4 A's of managing stress and nodded in connection with the various benefits of each. Shared wanting to work on the skill of adapting a more positive mindset in the face of stressors. Client stated this will be helpful in decreasing stress because he would be more capable of identifying and challenging thought distortions as they arise. Client seemed to benefit from increased awareness of the impact of stress on mental health and increasing repertoire of stress management strategies. Will continue IOP tx to prevent decompensation, continue to promote thought challenging and mood stability, as well as consistent application of healthy coping skills. Narrative Note: []
--- NOTE | 2021-07-20 09:05 | BH.SGPN.GN ---
Behaviors/Verbalizations/Mental Status: [] Eye contact is good. Motor activity is appropriate. Appearance is casual. Speech is Appropriate. Mood is euthymic. Affect is full. Thoughts are linear and logical. No evidence of psychosis. Reviewed daily check in sheet and no reports of suicidal ideations or intent. Client Response/Progress/Benefit: [] Pt was an active participant in group discussion. Attentive. Daily symptom tracker notes 2/5 for depression and agitation. Emotion for today is relaxed and content. Mental health win include practicing self-care yesterday. Shared that he allowed himself a couple hours to decompress from some stress at home. Overall he beleives that he managed his emotions more effectively yesterday. Learning and implementing skills. Also feels that recent medication change has been helpful. Progress noted per pt report. Benefited from group support, encouragment, and feedback. Will continue in IOP to prevent decompensation, increase health coping, and improve functioning to return to work. Narrative Note: []
--- NOTE | 2021-07-20 10:10 | BH.SGPN.GN ---
Behaviors/Verbalizations/Mental Status: []Client alert and oriented, casually dressed and groomed. Eye contact good. Motor activity appropriate. Speech within normal limits. Affect constricted, mood anxious and frustrated. Thoughts linear, logical, no signs of hallucinations or delusions Client Response/Progress/Benefit: []Pt was an attentive participant and actively engaged throughout group discussion and activity. Attentive during psychoeducation and taking notes. Reflected connecting with topic of personal pitfalls and how they can impede mental health treatment progress. Pt and peers also discussed reasons why overcoming pitfalls is so challenging. Pt stated he struggles with overthinking and expecting ?the next shoe to drop? which has kept pt stuck. During experiential activity pt along with peers identified several pitfalls from the activity that are also associated with mental health which included: lack of awareness, poor communication, wanting to give up, and emotional reactivity. Pt expressed frustration and anxious during the activity, but did well to cope in the moment. Benefited from group by increasing awareness of pitfalls which can impact mental health. Pt will continue in [facility] tx to further improve mood stability, reinforce healthy coping skills, and maintain sobriety. Narrative Note: []
--- NOTE | 2021-07-20 11:10 | BH.SGPN.GN ---
Behaviors/Verbalizations/Mental Status: []Client alert and oriented, casually dressed and groomed. Eye contact good. Motor activity appropriate. Speech within normal limits. Affect congruent, mood anxious. Thoughts linear, logical, no signs of hallucinations or delusions. Client Response/Progress/Benefit: []Client receptive of session, engaged throughout AEB client actively participating in challenge activity, as well as listening and contributing to discussion. Taking notes throughout processing portions of session and reviewed the importance of slowing down to manage emotions both in the activity and in life. Shared this is something he has been personally working on. Client completed worksheet identifying personal pitfalls impacting mental health progress. Client identified the following pitfalls: distorted thinking patterns, negative self-talk, lack of awareness, and poor communication. Group discussed different coping skills to help manage or prevent from falling into pitfalls. Client expressed plans to work on challenging his perspective by more consistently implementing positive self-talk messages. Appeared to benefit from identifying personal pitfalls and strategies to overcome these pitfalls. Will continue IOP tx to prevent decompensation, improve consistent application of healthy coping skills, and maintain mood stability. Narrative Note: []
--- NOTE | 2021-07-21 09:05 | BH.SGPN.GN ---
Behaviors/Verbalizations/Mental Status: [] Pt eye contact good, casually dressed, motor activity appropriate, speech normal rate and tone, mood euthymic, congruent affect, thoughts linear and intact, no evidence of delusions or hallucinations. Reviewed client?s symptom tracker, no signs of suicidal ideation, plan, or intent as of today. Client Response/Progress/Benefit: []Pt responded well to session AEB by listening to others and sharing thoughts and feelings. Pt reported mental health positive as taking an hour walk after IOP yesterday. Identified additional positive as getting to see some co-workers yesterday which makes him excited to get back to work. Pt stated stressed about custody hearing next week. Pt stated he is coping with stressor by trying to stay in the current moment and not worry about what he cannot control. Pt reported positive thinking, grounding, and deep breathing as skills that have helped improve his mood. Progress noted with pt reporting improved mood and consistent use of healthy coping skills. Pt to continue IOP to maintain gains, challenge distorted thoughts and prevent decompensation. Narrative Note: []
--- NOTE | 2021-07-21 10:16 | BH.SGPN.GN ---
Behaviors/Verbalizations/Mental Status: []Client alert and oriented, casually dressed and groomed. Eye contact good. Motor activity appropriate. Speech within normal limits. Affect congruent, mood euthymic. Thoughts linear, logical, no signs of hallucinations or delusions. Client Response/Progress/Benefit: []Pt was an active participant AEB taking notes and providing input throughout group discussion, as well as completed anger worksheet. Group worked together to define anger and discussed the ways anger can impact one internally and externally. Pt nodding in connection with the internal impacts of anger on self-esteem and reported that anger can lead to damaged relationships as well if not expressed in healthy ways. Completed the iceberg exercise and identified emotions that tend to ?live under the surface? of pt?s own anger include: mistrust, loss of control, overthinking things or misinterpretations, anxiety, insecurity, and change. Pt also gained awareness of their typical responses to anger which included: shutting down, yelling, throwing things, snappy tone, and shaking, or being sarcastic. Benefited from group by increasing understanding of the impact of anger on mental health. Recommended continued tx to continue to improve emotion regulation skills, prevent decompensation, and continue to promote healthy use of supports. Narrative Note: []
--- NOTE | 2021-07-21 12:31 | BH.MDN ---
Multi-Disciplinary Note - Note 45-min Individual Time Started:: 11:15 Date: 07/21/21 Purpose of session/treatment goals addressed:: Review current progress and symptoms in IOP. Addressed treatment plan goals 1 and 2. Eye Contact:: Good Motor Activity:: Appropriate Appearance:: Casual Speech:: Appropriate Mood:: Anxious, Depressed Affect:: Congruent Thoughts:: Linear, Logical, No evidence of hallucinations/delusions noted Staff Interventions:: thought challenging, motivational interviewing, psychoeducation on: - acceptance of current emotions, CBT techniques, strengths perspective - pointed out progress and times when he has utilized skills Client Response:: Pt reports that he is feeling pretty good today stating that he woke up feeling motivated. Shared that he struggled with anger last evening which led to feelings of depression and ultimately isolation. Admits to trouble adjusting to changes that occur in his daily life. Yesterday he was planning on spending the evening at home with . informed him of a last minute event related to his stepson's co chairman which led to frustration. Increased awareness of his thoughts telling therapist the he kept beating myself up for being angry I shouldn't be angry about this. Identified other cognitive distorted thinking. His asked him if he was OK and he replied that he was fine. Continue to ruminate and be upset with himself for simply being upset. Therapist worked with acceptance of feelings of being irritable and how that is normal as being happy about everything is unrealistic. In the past would simply numb his feelings with alcohol however currently has been experiencing and trying to manage. Looked at events last night as opportunity to learn rather than failure. Able to identify actions that he took which were helpful and possible actions that he could have utilized. Able to identify skills to manage cognitive distortions. Risks/Concerns:: no risks or concerns noted. Progress Toward Goals/Plan:: Progress noted as pt has been sober since entering the program. Utilizing disadvantages to drinking reminder if he has any urges. Reports learning healthy coping skills to manage emotions which has decreased urge to self-medicate stress with alcohol. Medication compliant. Engaged and consistent with attendance. Reports that groups have been helpful for support and education. Reports increased communication with . Mood remains inconsistent. Continues to report depression, irritability, and anxiety which lead to isolation and decreased functioning. While these have decreased in frequency they are still happening on an almost daily basis. Work is a significant stressor which he has not had to deal with while in IOP. Discussed coming up with concrete anxiety plan for work as well as a return to work plan. Time Stopped:: 12:00
--- NOTE | 2021-07-27 09:00 | BH.SGPN.GN ---
Behaviors/Verbalizations/Mental Status: []Client alert and oriented, casually dressed and groomed. Eye contact good. Motor activity appropriate. Speech within normal limits. Affect congruent, mood euthymic. Thoughts linear, logical, no signs of hallucinations or delusions. Reviewed client?s symptom tracker, no risk for suicidal ideation, plan, or intent as of 07/27/21 Client Response/Progress/Benefit: []Client responded well to session, providing supportive feedback and connecting with peers. Client reports feeling hopeful this morning and shared that he had a lot of mental health wins this weekend. Client shared that things that used to bother him are no longer bothering him and this has significantly improved client's relationships. Client stated he and his have had more direct communication and he no longer keeps stuff in. Client also continues to use 15 minutes a day for self-care and this has helped client regulate emotions better. Client's current stressor is the upcoming court case, but he feels he is coping well. Appeared to benefit from reflecting on progress and application of coping skills. Client will continue IOP tx to promote gains, further improve emotional regulation skills, and help client transition back to work. Narrative Note: []
--- NOTE | 2021-07-27 10:10 | BH.SGPN.GN ---
Behaviors/Verbalizations/Mental Status: [] Eye contact is good. Motor activity is appropriate. Appearance is casual. Speech is Appropriate. Mood is euthymic. Affect is full. Thoughts are linear and logical. No evidence of psychosis. Client Response/Progress/Benefit: [] Pt was an active participant in group discussion. Attentive during psychoeducation on communication styles (Passive, Passive-Aggressive, Aggressive, and Assertive) and benefits/disadvantages to each style. Along with peers pt participated in providing insight into the benefits to effective communication on mental health which included; helps us get needs met, resolves problems, improves relationships, increases clarity, clears ups expectations, decreases stress, and increases productivity. Pt along with peers able to identify ways that communication can be misinterpreted through tone, texting, body language and assumptions. Pt identified his most frequently used communication style as a mixture of passive and passive-aggressive. Benefited from increased awareness of different communication styles and the importance of communicating effectively to improve mental wellness. Will continue in IOP to maintain gains, increase healthy coping, and improve functioning to return to work. Narrative Note: []
--- NOTE | 2021-07-27 11:15 | BH.SGPN.GN ---
Behaviors/Verbalizations/Mental Status: []Client alert and oriented, casually dressed and appropriately groomed. Eye contact good. Motor activity appropriate. Speech WNL. Affect congruent, mood dysthymic, anxious. Thoughts linear, logical, no signs of hallucinations or delusions. Client Response/Progress/Benefit: []Client responded well to session AEB listening attentively to others, taking notes, and providing input during group discussion. Client contributed ideas and provided support during the challenge activity, doing well to identify how skills used in group may relate back to skills they can apply when communicating in own daily life. Attentive during psychoeducation on interpersonal DBT skill ANIYAH and client selected a communication skill to practice. Client selected the skill of being more assertive and expressing how he feels rather than allowing it to bottle up to point of explosion. Client stated he recognizes being passive leads to needs not getting met and ultimately lashing out in aggression. Noted this has damaged relationships with others and himself. Client seemed to benefit from increasing awareness of healthy strategies to improve communication. Will continue IOP tx to maintain gains, increase healthy coping and prevent decompensation. Narrative Note: []
== END 2021-07-27 23:59 ==
LOC: BHIOP 09:11
PROVIDERS: PCP Nurse Practitioner; Referring Provider Psychiatry & Neurology Psychiatry; Visit Provider Psychiatry & Neurology Psychiatry
DX: F33.2 Major depressive disorder, recurrent severe without psychotic features (principal); F41.0 Panic disorder [episodic paroxysmal anxiety]; Z72.89 Other problems related to lifestyle; F17.210 Nicotine dependence, cigarettes, uncomplicated; Z79.899 Other long term (current) drug therapy; I10 Essential (primary) hypertension; K21.9 Gastro-esophageal reflux disease without esophagitis; Z81.1 Family history of alcohol abuse and dependence
CPT/HCPCS: H2020; S9480; 90853

== ENCOUNTER → 2022-10-14 | Outpatient (CLI) | payer BC, SELFPAY ==
[2022-10-14 23:10] LABS: Absolute Lymphocyte Count 2.84 X10^3/uL (0.83-4.51); Basophil# 0.07 X10^3/uL; Basophil% 0.7 % (0-1); Eosinophil# 0.25 X10^3/uL; Eosinophils% 2.5 % (0-5); Hematocrit 44.5 % (40-54); Hemoglobin 14.9 g/dL (13.0-16.5); Lymphocyte # 2.84 X10^3/ul (0.83-4.51); Lymphocyte % 28.2 % (19-41); Mean Corp Hgb Conc 33.5 g/dL (32-36); Mean Corpuscular Hgb 31.6 pg (27.0-32.0); Mean Corpuscular Volume 94.5 fL (80-94); Mean Platelet Vol. 11.4 fl (6.2-12.0); Monocyte# 0.75 X10^3/uL; Monocyte% 7.5 % (0-10); NRBC Flagged by Analyzer 0.2 % (0-5); Neutrophil # 6.03 X10^3/uL (2.7-7.7); Neutrophil % 59.9 % (47-70); Platelet Count 291 K/mm3 (150-450); RBC Distribution Width CV 11.8 % (11.6-14.6); RBC Distribution Width SD 40.7 fl (35.1-43.9); Red Blood Count 4.71 M/mm3 (4.6-6.2); White Blood Count 10.1 K/mm3 (4.4-11.0)
[2022-10-14 23:27] LABS: ALB/GLOB Ratio 1.2 RATIO (0.9-2.4); AST(SGOT) 22 U/L (15-37); Alanine Aminotransfer ALT/SGPT 27 U/L (16-61); Albumin, Serum 4.1 g/dL (3.2-5.0); Alkaline Phosphatase 92 U/L (45-117); Anion Gap 6 (5-15); BUN 16 mg/dL (7-18); BUN/Creat Ratio 17.3 RATIO (10-20); Calcium,Total 9.1 mg/dL (8.5-10.1); Chloride 107 mmol/L (98-107); Creatinine, Serum 0.93 mg/dL (0.70-1.30); EST Glomerular Filtration Rate 100 mL/min (>60); Est Glom Filt Rate - Afr Amer 121 mL/min (>60); Globulin 3.4 g/dL (2.2-4.2); Glucose 100 mg/dL (74-106); Potassium 4.2 mmol/L (3.5-5.1); Protein, Total 7.5 g/dL (6.4-8.2); Sodium Level 139 mmol/L (136-145); Thyroid Stim Hormone (TSH) 0.86 uIU/mL (0.358-3.74)
== END | disposition home or self-care (01) ==
PROVIDERS: PCP Nurse Practitioner; Referring Provider Nurse Practitioner; Visit Provider Nurse Practitioner
DX: I10 Essential (primary) hypertension (principal); F41.9 Anxiety disorder, unspecified; F32.9 Major depressive disorder, single episode, unspecified
CPT/HCPCS: 80053; 84443; 85025

== ENCOUNTER 2023-12-25 12:51 | Emergency (ER) | payer BC, SELFPAY ==
[2023-12-25 12:51] VITALS: BP 168/112; PULSE 74; RESP 16; TEMP 37; O2SAT 100; BMI 32.5
--- NOTE | 2023-12-25 13:52 | EX.ED.DYSGE1 ---
HPI History of Present Illness Chief Complaint: General Illness Informant: patient Onset/Context/Timing Onset: Yesterday Context: Gradual Onset Timing: Continuous Quality: Sharp Location: Anterior chest Worsened by: Nothing Relieved by: Nothing Narrative Narrative: Patient presents with chest pain, shortness of breath, and intermittent confusion that began yesterday. Patient states it has been constant since yesterday. Patient states it is gradually getting worse. Patient describes his pain as sharp. Patient states his pain is diffuse across his chest. Patient states nothing makes it better and nothing makes it worse. Patient admits to some rhinorrhea. Patient also admits to a mild headache. Patient denies any nausea or vomiting. [facility] Medical History Alcohol abuse with withdrawal Major depressive disorder, recurrent severe without psychotic features Nicotine use disorder Panic disorder Home Medications omeprazole 20 mg tablet,delayed release 20 mg PO DAILY 06/15/21 [History Last Taken Unknown] escitalopram oxalate 20 mg tablet (Lexapro) 30 mg (1.5 x 20 mg) .Route .COMPLEX depression 90 days #135 tabs 10/12/23 [Rx Last Taken Unknown] losartan 100 mg tablet 100 mg PO DAILY #90 tabs 10/12/23 [Rx Last Taken Unknown] Allergy/AdvReac Type Severity Reaction Status Date / Time trazodone Allergy no sex Verified 12/25/23 12:53 drive and muscles tense bupropion AdvReac Severe made Verified 12/25/23 12:53 anxiety worse and angry Family History Other Anxiety Surgical History no surgical history no surgical history Social History Smoking Status: Former smoker ROS ROS ED Constitutional Constitutional ED: Denies chills or fever(s) Eyes Eyes: Denies blurry vision or change in vision ENT ENT ED: Reports rhinorrhea; Denies sore throat Cardiovascular Cardiovascular: Denies chest pain or palpitations Respiratory/Chest Respiratory/Chest: Denies cough or dyspnea Gastrointestinal Gastrointestinal: Denies nausea or vomiting Genitourinary Genitourinary ED: Denies dysuria or hematuria Musculoskeletal Musculoskeletal: Reports back pain; Denies neck pain Integumentary Reports rash; Denies abscess Neurologic Neurologic: Reports headache(s); Denies weakness Allergic/Immunologic Allergic/Immunologic ED: Denies mouth swelling or urticaria EXAM Physical Exam Const Vital Signs: 12/25/23 12:51 Temperature 98.6 F Temperature Source Temporal Pulse Rate 74 Respiratory Rate 16 Blood Pressure 168/112 H Blood Pressure Mean 130 Pulse Ox 100 Oxygen Delivery Method Room Air Positive well nourished and well developed General Appearance ED: well developed and NAD HEENT Reports moist mucous membranes Neck supple and no JVD Resp normal respiratory effort and clear to auscultation bilaterally Cardio regular rate and regular rhythm GI non-tender and non-distended Palpation: soft Extremity normal to inspection Neuro oriented x3, CN's II-XII intact bilaterally and no sensory deficits noted Sensorium / Orientation: alert Motor Exam: strength 5/5 throughout Psych mental status grossly normal MDM MDM MDM Narrative Medical decision making narrative: Differential diagnosis includes viral illness, bronchitis, pneumonia, pneumothorax, cardiac dysrhythmia, cardiac ischemia, electrolyte abnormality, dehydration, and anxiety. EKG will be obtained to assess for cardiac dysrhythmia and cardiac ischemia. Chest x-ray will be obtained to assess for pneumonia and pneumothorax. CBC will be obtained to assess for leukocytosis and anemia. Basic metabolic profile will be obtained to assess for electrolyte abnormality and renal function. High-sensitivity troponin will be obtained to assess for cardiac ischemia. Urinalysis will be obtained to assess for urinary tract infection. COVID-19, influenza, and RSV PCR will be obtained to assess for viral infection. Lab Data Attestation: I reviewed the patient's lab results. Lab results narrative: CBC was reviewed and was within normal limits. Basic metabolic profile was reviewed and was within normal limits. High-sensitivity troponin was reviewed and was normal at 11. Urinalysis was reviewed. There is no evidence of urinary tract infection or hematuria. COVID-19 PCR was reviewed and was negative. Influenza PCR was reviewed and was negative for influenza A and influenza B. RSV PCR was reviewed and was negative. Radiography Chest X-Ray - ED: 2 View, Read by ED Physician, Read by Radiologist and No Acute Disease EKG Initial EKG: Attestation: I personally reviewed and interpreted this EKG as follows: Interpretation: Sinus Bradycardia (56) Comments: EKG was obtained. On my independent interpretation, it showed a sinus bradycardia with a rate of 56. HI interval, QRS interval, and QTc intervals were all normal. [place] was normal. There are no acute ST or T wave changes. Prior EKG tracings: not available for review Prior: No Prior Treatment and Re-Evaluation :: Patient was given aspirin here. Patient is feeling better on reevaluation. Patient was advised of his findings. Patient has a HEART score of 1. Patient was advised that this is low risk for acute cardiac event. Patient was instructed to drink plenty of fluids. Patient was instructed to follow-up with his primary care physician in 5 to 7 days for further evaluation. Patient understood and was agreeable with the plan. All questions were answered. Discharge Plan Triage Chief Complaint: General Illness ED Provider: Andrew Gambino Dx/Rx/DC Orders Clinical Impression: Chest pain, Hypertension Instructions: ED Chest Pain, Uncertain Cause Prescriptions: No Action omeprazole 20 mg Tablet,Delayed Release (Dr/Ec) 20 mg PO DAILY losartan 100 mg tablet 100 mg PO DAILY Qty: 90 3RF escitalopram oxalate [Lexapro] 20 mg tablet 30 mg .ROUTE .COMPLEX 90 Days Qty: 135 3RF Rx Instructions: 30 mg; Primary Care Provider: Jeaneth Norris NP Referrals: Jeaneth Norris NP, CATTERY OPERATOR-C [Primary Care Provider] - 5-7 Days Activity Restrictions/Additional Instructions: There was no emergent cause for your symptoms today in the emergency department. You will need to follow-up with your primary care physician for further evaluation of your symptoms. Disposition Disposition: Home, Self Care
[2023-12-25 14:00] VITALS: BP 130/88; PULSE 60; RESP 13; O2SAT 100
[2023-12-25] MEDS: 0.9% Normal Saline (1000mL) 1,000 ML 1000 ML IV (14:06)
[2023-12-25] MEDS: Aspirin 81 MG TAB.CHEW 324 MG PO (14:09)
[2023-12-25 14:10] LABS: Bacteria 0 SEEN /hpf (None Seen); Mucous, Urine 0 SEEN /hpf (<or=2+); Red Blood Cells-Urine 0 SEEN /hpf (0-5); Squamous Epithelial Cells - UA 0 SEEN /hpf (0-5); White Blood Cells 0 SEEN /hpf (0-5)
--- NOTE | 2023-12-25 14:11 | ED.RN ---
NO OLD EKG
[2023-12-25 14:12] LABS: Absolute Neutrophil Count 5.1 X10^3/uL (2.0-7.7); Basophil# 0.07 X10^3/uL; Basophil% 0.9 % (0-1); Eosinophil# 0.23 X10^3/uL; Hematocrit 46.3 % (40-54); Hemoglobin 15.5 g/dL (13.0-16.5); Lymphocyte % 20.6 % (19-41); Mean Corp Hgb Conc 33.5 g/dL (32-36); Mean Corpuscular Volume 95.5 fL (80-94); Mean Platelet Vol. 10.5 fl (6.2-12.0); Monocyte# 0.81 X10^3/uL; Monocyte% 10.4 % (0-10); NRBC Flagged by Analyzer 0 % (0-5); Neutrophil # 5.05 X10^3/uL (2.7-7.7); Neutrophil % 64.8 % (47-70); Platelet Count 217 K/mm3 (150-450); RBC Distribution Width CV 11.8 % (11.6-14.6); RBC Distribution Width SD 41.1 fl (35.1-43.9); Red Blood Count 4.85 M/mm3 (4.6-6.2); White Blood Count 7.8 K/mm3 (4.4-11.0)
--- NOTE | 2023-12-25 14:23 | RAD_ITS ---
STUDY: X-RAY CHEST REASON FOR EXAM: Male, 33 years old. Chest pain. Body aches like symptoms. TECHNIQUE: PA and lateral views of the chest. COMPARISON: None. FINDINGS: EKG electrodes are seen. The lungs are clear and expanded. Scattered calcified granulomas. There is no demonstrated pleural abnormality. Normal size heart. Normal mediastinum and jesenia. Normal visualized pulmonary arteries. Normal visualized aortic arch and descending thoracic aorta. There are mild degenerative changes of the visualized thoracic spine. Normal visualized ribs, clavicles, and shoulders. There is no demonstrated abnormality of the visualized soft tissue structures of the upper abdomen. RAD/Chest PA and Lateral IMPRESSION: No acute abnormality is seen. Electronically Signed: Clifford Barrow MD at 14:37 EST ,
[2023-12-25 14:26] LABS: Color, Urine Yellow (Yellow); Glucose, Dipstick Normal (Normal); Ketone-Dipstick Negative (Negative); Leukocyte Esterase-Dipstick Negative /ul (Negative); Nitrite-Dipstick Negative (Negative); Occult Blood-Urine Negative /ul (Negative); Protein-Dipstick Negative (Negative); Urine Bilirubin Dipstick Negative (Negative); Urine Clarity Clear (Clear); Urine Urobilinogen Normal (Normal)
[2023-12-25 14:28] LABS: Anion Gap 5 (5-15); BUN 7 mg/dL (7-18); BUN/Creat Ratio 9.3 RATIO (10-20); Calcium,Total 9.4 mg/dL (8.5-10.1); Chloride 103 mmol/L (98-107); Creatinine, Serum 0.76 mg/dL (0.70-1.30); EST Glomerular Filtration Rate 126 mL/min (>60); Est Glom Filt Rate - Afr Amer 152 mL/min (>60); Estimated Creatinine Clearance 169.57 ml/min; Glucose 95 mg/dL (74-106); Potassium 3.9 mmol/L (3.5-5.1); Sodium Level 136 mmol/L (136-145); Troponin-I HS 11 pg/mL (3.0-78.0)
[2023-12-25 16:23] VITALS: BP 128/70; PULSE 87; RESP 16; TEMP 36.4; O2SAT 99
== END 2023-12-25 16:24 | disposition home or self-care (01) ==
PROVIDERS: Emergency Provider Emergency Medicine; PCP Nurse Practitioner; Visit Provider Emergency Medicine
DX: R07.9 Chest pain, unspecified (principal); Z87.891 Personal history of nicotine dependence; R51.9 Headache, unspecified; I10 Essential (primary) hypertension; M54.9 Dorsalgia, unspecified; F32.9 Major depressive disorder, single episode, unspecified
CPT/HCPCS: 71046; 80048; 81001; 84484; 85025; 87631; 93005; 96360; 99284; J7030; A4216

== ENCOUNTER → 2023-12-27 | Outpatient (CLI) | payer BC, SELFPAY ==
--- OUTSIDE RECORDS SUMMARY | 2023-12-27 21:21 | XMS RPT_ITS | CCD ---
Author Name Unknown Address [address] [place] [address] Organization [facility] Results Test Name Value Interpretation Reference Range Facil ity Summary Purpose Family History No Family History Records Found Advance Directives No Advanced Directives Records Found Additional Source Comments (unrecognized sect ion and content) No Status Records Found INFORMATION SOURCE (unrecogn ized section and content) FOR RECORDS PERTAINING TO PATIENTS WHO ARE OR HAVE BEEN ENROLLED IN A CHEMICAL DEPENDENCY/SUBSTANCEABUSE PROGRAM, SOME INFORMATION MAY BE OMITTED. This clinical summary was aggregated from multiple sources. Caution should be exercised in using it in the provision of clinical care. This summary normalizes information from multiple sources, and as a consequence, information in this document may materially change the coding, format and clinical context of patient data. In addition, data may be omitted in some cases. CLINICAL DECISIONS SHOULD BE BASED ON THE PRIMARY CLINICAL RECORDS. [employer] provides no warranty or guarantee of the accuracy or completeness of information in this document.
[2023-12-27 21:55] LABS: Vitamin B12 452 pg/mL (211-911); Vitamin D,25 Hydroxy 24.6 ng/mL
[2023-12-27 22:00] LABS: Thyroid Stim Hormone (TSH) 0.97 uIU/mL (0.358-3.74)
[2023-12-29 16:09] LABS: EBV Acute VCA IgM < 36.0 U/mL (0.0-35.9); EBV Nuclear Antigen IgG > 600.0 U/mL (0.0-17.9); EBV-VCA IgG > 600.0 U/mL (0.0-17.9)
== END | disposition home or self-care (01) ==
PROVIDERS: PCP Nurse Practitioner; Visit Provider Nurse Practitioner
DX: R53.83 Other fatigue (principal); R63.4 Abnormal weight loss; I10 Essential (primary) hypertension; E56.9 Vitamin deficiency, unspecified; E53.9 Vitamin B deficiency, unspecified
CPT/HCPCS: 82306; 82607; 84443; 86664; 86665

== ENCOUNTER 2025-10-11 14:57 | Observation (INO) | payer BC, SELFPAY ==
[2025-10-11] VITALS (12 sets, daily range): BP systolic 123–142; BP diastolic 65–98; PULSE 83–132; RESP 13–33; TEMP 36.1–37.2; O2SAT 96–99; BMI 37.0; BMI 36.0
--- NOTE | 2025-10-11 15:22 | CT_ITS ---
PROCEDURE: CTA CHST, ABD, PEL W AND/OR WO 10/11/2025 REASON FOR EXAM: CP, LEFT SIDED ABD PAIN, NUMBNESS LEFT SIDE TECHNIQUE: Procedure Code: CTCTA.CHAP.2 Modality: CT Procedure: CTA CHST, ABD, PEL W AND/OR WO Coronal and Sagittal reconstruction series were provided. 3D reconstructions One or more dose reduction techniques were used (e.g., Automated exposure control, adjustment of the mA and/or kV according to patient size, use of iterative reconstruction technique. CONTRAST: Isovue 370 VOLUME: 100 mL RADIATION DOSE SUMMARY: CTDlvol: 73 mGy DLP: 3074 mGycm FINDINGS: Inspection of the study demonstrates normal aortic arch. No aortic aneurysm or dissection. No pericardial effusion. No pulmonary emboli. No parenchymal lung masses. No parenchymal consolidation or edema. No visible adenopathy. Liver, spleen, pancreas, gallbladder demonstrate no mass lesions. No free-fluid or free air. Negative for adenopathy. Negative for colonic wall thickening. Negative for perinephric fluid. No thoracic or lumbar compression deformity. Normal sternum. Inspection of the angiographic anatomy demonstrates no abdominal aneurysm or dissection. Patent celiac artery, superior mesenteric artery, renal arteries and iliac vessels CT/CTA Chst, Abd, Pel W and/or WO IMPRESSION: No acute abnormality Reading [facility]
--- NOTE | 2025-10-11 15:22 | CT_ITS ---
PROCEDURE: STROKE CTA HEAD AND NECK W/CON 10/11/2025 REASON FOR EXAM: NEURO DEFICIT, ACUTE, STROKE SUSPECTED TECHNIQUE: Procedure Code: CTCTA.ST.HN Modality: CT Procedure: STROKE CTA HEAD AND NECK W/CON Multiplanar Sagittal and Coronal images were obtained. 3D reconstructions CONTRAST: Isovue 370 VOLUME: 100 mL One or more dose reduction techniques were used (e.g., Automated exposure control, adjustment of the mA and/or kV according to patient size, use of iterative reconstruction technique). RADIATION DOSE SUMMARY: CTDlvol: 70 mGy DLP: 3074 mGycm FINDINGS: Aortic arch normal in caliber. Normal common carotid arteries. Normal carotid bifurcations. Cervical internal carotid arteries exhibit normal caliber. There is prominent venous contrast in the cavernous sinuses which limits evaluation of those arteries. No aneurysms are identified in the [id number]. No left or right-sided M1 or visible M2 occlusion is detected. There is no KORINA occlusion. 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 There is no basilar stenosis. The vertebral arteries exhibit normal caliber and are codominant. There are no soft tissue neck masses. There is no dural sinus thrombosis. CT/STROKE CTA Head AND Neck W/Con IMPRESSION: Stroke Alert: Negative noncontrast CT. Angiogram negative The critical findings in the findings and impression above were relayed directl y by me by telephone to Lupe Patterson on 10/11/2025 at 4:04 pm with readback verification. Reading Location[facility]
--- NOTE | 2025-10-11 15:22 | CT_ITS ---
PROCEDURE: STROKE BRAIN/HEAD WITHOUT CONT 10/11/2025 REASON FOR EXAM: NEURO DEFICIT, ACUTE, STROKE SUSPECTED TECHNIQUE: Procedure Code: CTBR.ST Modality: CT Procedure: STROKE BRAIN/HEAD WITHOUT CONT Coronal and Sagittal reconstruction series were provided. One or more dose reduction techniques were used (e.g., Automated exposure control, adjustment of the mA and/or kV according to patient size, use of iterative reconstruction technique. RADIATION DOSE SUMMARY: CTDlvol: 45 mGy DLP: 846 mGycm FINDINGS: No acute loss of sullivan-white differentiation. No hemorrhage. No edema. No hydrocephalus. Mucosal thickening in both maxillary sinuses in the right sphenoid sinus. Bony calvarium intact. CT/STROKE Brain/Head without Cont IMPRESSION: No acute abnormality. These results will be communicated to the referring prov ider at the time of this dictation. The time of communication will be documented on the CT angiographic study Reading Location[facility]
--- NOTE | 2025-10-11 15:22 | EKG12_ITS ---
Test Reason : CHEST PAIN Blood Pressure : */* mmHG Vent. Rate : 123 BPM Atrial Rate : 123 BPM P-R Int : 126 ms QRS Dur : 76 ms QT Int : 324 ms P-R-T Axes : 57 53 49 degrees QTcB Int : 463 ms Sinus tachycardia Nonspecific ST abnormality Abnormal ECG Confirmed by ROSA YOUNG, LASHELL ([id number]), editorial director FRANCIS JOHNSON ([id number]) on 10/13/2025 9:11:36 AM Referred By: Confirmed By: LASHELL LEE MD
--- NOTE | 2025-10-11 15:29 | CM.ED ---
Social Work Date of referral: 10/11/25 Reason for referral: Stroke Alert Frit Mixer responded to stroke alert call and was able to be in the room briefly and then met with patient's and patient's [id number] (MIL) after patient was removed from the room for imaging. Patient's stated patient has been under a lot of stress, struggles with anxiety and depression and has been going through some medication changes to treat current symptoms. Medications not working per patient's and patient's team is aware. Patient also is receiving counseling services for added support. Patient's family denied any other needs/support at this time. Nova Lau, UNIT MANAGER RN, CURB SETTER
--- NOTE | 2025-10-11 15:30 | ED.VIS.CHEST ---
HPI History of Present Illness Chief Complaint: Chest Pain Narrative Narrative: Patient is a 34-year-old male presenting to the emergency department for chest pain, shortness of breath, nausea, shakiness and left-sided numbness. Patient states that he has a history of alcohol abuse and was sober for 1 year. Has a past medical history of anxiety, hypertension and panic attacks for which he is on ativan for. He did drink a significant mount of alcohol last night. States that he was out drinking until around 1 AM. He thinks someone something in his drink. States that he cannot remember much from the night. He went to [place] emergency department where he was checked out and given something and discharged home. States that when he woke up this morning around 8 AM he had left-sided chest pain and the left-sided numbness. States that the chest pain does not radiate anywhere. Endorses shortness of breath as well. Endorses left-sided abdominal pain with nausea and 1 episode of nonbilious, nonbloody vomiting this morning. Denies any dysuria or hematuria. Denies focal weakness of his extremities. [facility] Medical History Hypertension Nicotine use disorder Panic disorder Major depressive disorder, recurrent severe without psychotic features Alcohol abuse with withdrawal Home Medications ?Medication ?Instructions ?Recorded ?Last Taken ?Type losartan 100 mg tablet 100 mg PO DAILY #90 tabs 09/25/25 10/11/25 Rx omeprazole 40 mg capsule,delayed 40 mg PO QDAY #90 caps 09/25/25 10/11/25 Rx release oxybutynin chloride 10 mg 10 mg PO QDAY #90 tabs 09/25/25 10/11/25 Rx tablet,extended release 24 hr fluoxetine 20 mg capsule 20 mg PO QDAY 09/26/25 10/11/25 History lamotrigine 150 mg tablet 150 mg PO QDAY 09/26/25 10/11/25 History (Lamictal) lorazepam 0.5 mg tablet 0.5 mg PO QDAY PRN anxiety 09/26/25 10/09/25 History atomoxetine 25 mg capsule 25 mg PO DAILY 10/11/25 Unknown History fluoxetine 10 mg capsule 10 mg PO DAILY 10/11/25 10/11/25 History mirtazapine 15 mg tablet 7.5 mg PO QHS 10/11/25 10/09/25 History Allergy/AdvReac Type Severity Reaction Status Date / Time trazodone Allergy no sex Verified 10/11/25 14:58 drive and muscles tense bupropion AdvReac Severe made Verified 10/11/25 14:58 anxiety worse and angry escitalopram (From Lexapro) AdvReac Intermediate worked for Verified 10/11/25 14:58 1 year then stopped Family History Other Anxiety Heart disease Social History Smoking Status: Current every day smoker tobacco type: e-cigarettes and smokeless tobacco ROS ROS ED ROS Narrative see HPI EXAM Physical Exam Narrative Exam Narrative: Vital signs: Reviewed General: Alert and orientedx3. No acute distress. Anxious appearing. Hyperventilating. HEENT: Head is normocephalic and atraumatic, sinuses nontender, pupils equal round and reactive. Nares are patent. Oropharynx and throat exams normal. Neck: Supple without lymphadenopathy nontender Cardiovascular: Tachycardic rate and regular rhythm, no murmurs. No rubs or gallops. Normal S1 and S2 Respiratory: Clear to auscultation bilaterally. No wheezes, rales, rhonchi Abdominal: Soft and mildly tender to palpation in the left upper quadrant. Normal bowel sounds. No guarding or rebound. Nonsurgical abdomen Extremities: No tenderness. No bruising. Normal range of motion. Skin: No rash or redness. The rest of the physical exam is unremarkable Const Vital Signs: 10/11/25 14:59 10/11/25 15:21 10/11/25 15:41 Temperature 98.9 F Temperature Source Oral Pulse Rate 132 H 96 Respiratory Rate 33 H 24 H Respiratory Effort Blood Pressure 137/75 H 123/98 H Blood Pressure Mean 95 106 Pulse Ox 98 98 98 Oxygen Delivery Method Room Air Room Air Room Air 10/11/25 15:42 10/11/25 15:52 10/11/25 16:22 Temperature Temperature Source Pulse Rate 104 H 87 Respiratory Rate 17 18 Respiratory Effort Normal Blood Pressure 126/78 H 126/68 H Blood Pressure Mean 94 87 Pulse Ox 99 96 Oxygen Delivery Method Room Air Room Air 10/11/25 17:17 10/11/25 17:30 10/11/25 17:45 Temperature Temperature Source Pulse Rate 86 88 83 Respiratory Rate 19 H 17 13 Respiratory Effort Blood Pressure 142/73 H 139/82 H 137/70 H Blood Pressure Mean 96 98 86 Pulse Ox 96 96 96 Oxygen Delivery Method 10/11/25 18:00 Temperature Temperature Source Pulse Rate 84 Respiratory Rate 15 Respiratory Effort Blood Pressure 137/67 H Blood Pressure Mean 89 Pulse Ox 96 Oxygen Delivery Method NIHSS NIHSS Initial: 1a Level of Consciousness: 0 1b LOC Questions (Score 2 if aphasic/stupor): 0 1c LOC Commands (Only score 1st attempt): 0 2 Best Gaze (If aphasic, use reflexive mvmts.): 0 3 Visual: 0 4 Facial Palsy: 1 5 Motor Arm Right (UN = amputation/fusion): 0 5 Motor Arm Left: 0 6 Motor Leg Right: 0 6 Motor Leg Left: 0 7 Limb ataxia (Only + if out of proportion): 0 8 Sensory (Aphasia/stupor=0 or 1, coma=2): 1 9 Best Language: 0 10 Dysarthria (mute, coma=2, intubated=UN): 0 11 Extinction and Inattention (only scored if +): 0 Total Score: 2 MDM MDM MDM Narrative Medical decision making narrative: Patient is a 34-year-old male presenting to the emergency department for multiple complaints as seen in the HPI. Patient was seen and examined. Vitals are stable. He is tachycardic and tachypneic but he is very anxious appearing. Patient was started on a fluid bolus and given 1 mg of IV Ativan. Differential includes but is not limited to: Stroke, alcohol versus drug use, ACS, aortic dissection, anxiety Given the patient's last known well was this morning at 8 AM and complaints of left-sided numbness and some very mild left-sided facial droop, stroke team was called. CT of the brain and CTA of the head and neck were obtained. Telestroke, Dr. Mackey evaluated the patient at bedside and recommended admission for further stroke workup. CT imaging of the chest abdomen pelvis was also obtained given the patient's complaints of abdominal pain and neurologic symptoms of sensation deficit to rule out aortic aneurysm rupture or dissection. CBC with a leukocytosis of 18 and hemoglobin of 17.7. CMP with bicarb of 16.5, likely from his initial hyperventilation. Anion gap of 22. May also be due to the patients drinking last night and vomiting this morning. Troponin and reflex of 11->22->19. Urinalysis was added on after the leukocytosis was noted and shows no evidence of infection. Urine drug screen and alcohol are negative. CT of the brain shows no acute abnormality. CTA of the head and neck is negative. CTA of the chest abdomen pelvis is negative as well. Patient and family at bedside were updated on the negative findings. Patient admitted to the hospitalist, Dr. Macias for further management. Clinical impression: Strokelike symptoms Anion gap metabolic acidosis History & Record Review Discussion w/independent historian: Patient and Family Lab Data Attestation: I reviewed the patient's lab results. Labs: Laboratory Results - last 24 hr 10/11/25 10/11/25 10/11/25 15:06 15:46 15:48 WBC 18.0 H RBC 5.47 Hgb 17.7 H Hct 50.2 MCV 91.8 MCH 32.4 H MCHC 35.3 RDW Std Deviation 42.0 RDW Coeff of Dong 12.3 Plt Count 372 MPV 10.1 Immature Gran % (Auto) 0.400 Neut % (Auto) 66.2 Lymph % (Auto) 24.2 Cavalier % (Auto) 8.0 Eos % (Auto) 0.6 Baso % (Auto) 0.6 Absolute Neuts (auto) 11.9 H Absolute Lymphs (auto) 4.35 Nucleated RBC % 0 PT 13.1 INR 1.0 APTT 23.2 L Sodium 138 Potassium 4.0 Chloride 100 Carbon Dioxide 16.5 L Anion Gap 22 H BUN 12 Creatinine 0.94 Estim Creat Clear Calc 144.74 Est GFR (MDRD) Non-Af 109 BUN/Creatinine Ratio 12.4 Glucose 105 H Calcium 10.7 Total Bilirubin 0.94 AST 31 ALT 31 Alkaline Phosphatase 111 Troponin T High Sens 11 Troponin T Hi Sens 2 Hr Total Protein 8.1 Albumin 4.8 Globulin 3.3 Albumin/Globulin Ratio 1.4 Urine Color Urine Clarity Urine pH Ur Specific [place] Urine Protein Urine Glucose (UA) Urine Ketones Urine Occult Blood Urine Nitrite Urine Bilirubin Urine Urobilinogen Ur Leukocyte Esterase Urine RBC Urine WBC Ur Squamous Epith Cells Urine Bacteria Urine Mucus Urine Opiates Screen U Buprenorphine Qual Ur Oxycodone Screen Urine Methadone Screen Urine Fentanyl Screen Ur Barbiturates Screen Ur Phencyclidine Scrn Ur Amphetamines Screen U Benzodiazepines Scrn Urine Cocaine Screen U Cannabinoids Screen Ethyl Alcohol < 10.1 POC Glucose 101 10/11/25 10/11/25 10/11/25 16:45 16:50 17:27 WBC RBC Hgb Hct MCV MCH MCHC RDW Std Deviation RDW Coeff of Dong Plt Count MPV Immature Gran % (Auto) Neut % (Auto) Lymph % (Auto) Cavalier % (Auto) Eos % (Auto) Baso % (Auto) Absolute Neuts (auto) Absolute Lymphs (auto) Nucleated RBC % PT INR APTT Sodium Potassium Chloride Carbon Dioxide Anion Gap BUN Creatinine Estim Creat Clear Calc Est GFR (MDRD) Non-Af BUN/Creatinine Ratio Glucose Calcium Total Bilirubin AST ALT Alkaline Phosphatase Troponin T High Sens Troponin T Hi Sens 2 Hr 22 Total Protein Albumin Globulin Albumin/Globulin Ratio Urine Color Yellow Urine Clarity Clear Urine pH 6.5 Ur Specific [place] 1.010 Urine Protein 30 H Urine Glucose (UA) Normal Urine Ketones 15 H Urine Occult Blood Negative Urine Nitrite Negative Urine Bilirubin Negative Urine Urobilinogen Normal Ur Leukocyte Esterase Negative Urine RBC 0-5 SEEN Urine WBC 0-5 SEEN Ur Squamous Epith Cells 0-5 SEEN Urine Bacteria 0 SEEN Urine Mucus 0 SEEN Urine Opiates Screen NEGATIVE U Buprenorphine Qual NEGATIVE Ur Oxycodone Screen NEGATIVE Urine Methadone Screen NEGATIVE Urine Fentanyl Screen NEGATIVE Ur Barbiturates Screen NEGATIVE Ur Phencyclidine Scrn NEGATIVE Ur Amphetamines Screen NEGATIVE U Benzodiazepines Scrn NEGATIVE Urine Cocaine Screen NEGATIVE U Cannabinoids Screen NEGATIVE Ethyl Alcohol POC Glucose Radiography Diagnostic Testing: Clinical Impression(s) from Imaging Studies Brain CT 10/11/25 15:22 IMPRESSION: No acute abnormality. These results will be communicated to the referring provider at the time of this dictation. The time of communication will be documented on the CT angiographic study Reading Location: [facility] Chest/Abdomen/Pelvis CTA 10/11/25 15:22 IMPRESSION: No acute abnormality Reading [facility] Head/Neck CTA 10/11/25 15:22 IMPRESSION: Stroke Alert: Negative noncontrast CT. Angiogram negative The critical findings in the findings and impression above were relayed directly by me by telephone to Leonardo Lupe on 10/11/2025 at 4:04 pm with readback verification. Reading Location: [facility] Critical Care Time Critical Care Time: Yes Critical care time (excluding procedures): 30-74 minutes (31), Discussing w/Patient &/or Family/Prime Broker, Discussing w/Consultants, Arranging Admission or Transfer and Performing Direct Patient Care at Bedside Discharge Plan Disposition Disposition: Acute Care Hospital [facility] Discharge Date/Time: 10/11/25 18:58
--- OUTSIDE RECORDS SUMMARY | 2025-10-11 15:32 | XMS RPT_ITS | CCD ---
Author Organization [facility] Care Team Providers Care Associate Vice President Name Role Phone Radha DIP TANKER, Lindsey Attending Unavailable Radha DIP TANKER, Lindsey Primary Care Unavailable Andrew Gambino Attending Unavailable Radha DIP TANKER, Lindsey Primary Care Unavailable GERRI SCHULZ Primary Care Unavailable Unavailable Primary Care Provider Unavailpamella Veliz MD, Jose Alejandro Lezama Unavailable [phone] Garcia, Lindsey Primary Care Provider MANUEL SANDOVAL Attending Unavailable RADHA, LINDSEY Primary Care Unavailable MANUEL SANDOVAL Attending Unavailable MANUEL SANDOVAL Referring Unavailable GARCIA, LINDSEY Primary Care Unavailable MANUEL SANDOVAL Attending Unavailable MANUEL SANDOVAL Referring Unavailable GARCIA, LINDSEY Primary Care Unavailable MANUEL SANDOVAL Attending Unavailable MANUEL SANDOVAL Referring Unavailable GARCIA, LINDSEY Primary Care Unavailable LAYNE RAMIREZ Attending Unavailable MANUEL SANDOVAL Attending Unavailable LAYNE RAMIREZ Referring Unavailable GARCIA, LINDSEY Primary Care Unavailable Allergies Allergy Classification Reported Allergen(s) Allergy Type Date of Onset Reaction(s) Facility (1 source) buPROPion Drug Allergy 12-25-2023 [facility] Repository (1 source) traZODone Drug Allergy 12-25-2023 [facility] Repository Medications Current Medications Medication Drug Class(es) Dates Sig (Normalized) Sig (Original) acetaminophen 325 mg / oxyCODONE hydrochloride 5 mg oral tablet (8 sources) Opioid Agonist Start: 03-24-2025 End: 04-01-2025 take 1 tablet by mouth every six hours as needed for pain oxyCODONE-acetaminop hen (Percocet) 5-325 MG tablet Indications: Ureterolithiasis Take 1 tablet by mouth every 6 hours as needed for severe pain (7-10) for up to 5 days. 8 tablet 03/27/2025 04/01/2025 Active cephalexin 500 mg oral capsule (7 sources) Cephalosporin Antibacterial Start: 03-24-2025 End: 03-29-2025 take 1 capsule by mouth three times daily cephalexin (Keflex) 500 MG capsule Take 1 capsule (500 mg) by mouth 3 times daily for 5 days. 15 capsule 03/24/2025 03/29/2025 Active ibuprofen 800 mg oral tablet (5 sources) Nonsteroidal Anti-inflammatory Drug Start: 03-27-2025 End: 04-27-2025 take 1 tablet by mouth every six hours as needed for pain ibuprofen 800 MG tablet Take 1 tablet (800 mg) by mouth every 6 hours as needed for moderate pain (4-6). 120 tablet 03/28/2025 04/27/2025 Active ketorolac tromethamine 10 mg oral tablet (1 source) Nonsteroidal Anti-inflammatory Drug, Cyclooxygenase Inhibitor Start: 05-01-2025 End: 05-06-2025 take 1 tablet by mouth three times daily at mealtime ketorolac (Toradol) 10 MG tablet Indications: Pain Take 1 tablet (10 mg) by mouth 3 times daily (with meals) for 5 days. 15 tablet 05/01/2025 05/06/2025 Active Omeprazole (18 sources) Proton Pump Inhibitor OMEPRAZOLE PO Take by mouth. Active ondansetron 4 mg disintegrating oral tablet (7 sources) Serotonin-3 Receptor Antagonist Start: 03-24-2025 End: 03-31-2025 take 1 tablet by mouth every eight hours as needed for nausea ondansetron ODT (Zofran-ODT) 4 MG disintegrating tablet Take 1 tablet (4 mg) by mouth every 8 hours as needed for nausea for up to 7 days. 10 tablet 03/24/2025 03/31/2025 Active 24 hr oxybutynin chloride 10 mg extended release oral tablet (13 sources) Cholinergic Muscarinic Antagonist Start: 03-27-2025 End: 03-27-2026 take 1 tablet by mouth once daily oxybutynin XL (Ditropan XL) 10 MG 24 hr tablet Indications: Bladder spasms Take 1 tablet (10 mg) by mouth daily. Do not crush, chew, or split. 30 tablet 11 03/27/2025 03/27/2026 Active tamsulosin hydrochloride 0.4 mg oral capsule (8 sources) alpha-Adrenergic Ania Start: 03-24-2025 End: 04-26-2025 take 1 capsule by mouth once daily tamsulosin (Flomax) 0.4 MG 24 hr capsule Indications: Ureterolithiasis Take 1 capsule (0.4 mg) by mouth daily. 30 capsule 1 03/27/2025 04/26/2025 Active Completed/Discontinued Medications Medication Drug Class(es) Dates Sig (Normalized) Sig (Original) 50 ml sodium chloride 9 mg/ml injection (2 sources) Start: 03-24-2025 End: 03-24-2025 1,000 mL, IntraVENous, at 1,000 mL/hr, Administer over 1 Hours, Once, On Mon03/24/25 at 1010, For 1 dose Problems Problem Classification Problem Date Documented Da te Episodic/Chronic Abdominal pain (5 sources) Flank pain; Translations: [Unspecified abdominal pain] Onset: 05-01-2025 05-01-2025 Episodic Anxiety disorders (1 source) Anxiety disorder, unspecified; Translations: [Anxiety] Onset: 12-27-2024 Chronic Calculus of urinary tract (13 sources) Ureteric stone; Translations: [Calculus of ureter] Onset: 05-01-2025 03-24-2025 Episodic Malaise and fatigue (2 sources) Other fatigue; Translations: [Other fatigue] Onset: 01-01-2024 Episodic Nonspecific chest pain (1 source) Chest pain, unspecified; Translations: [Chest pain, unspecified] Onset: 12-28-2023 Episodic Other diseases of bladder and urethra (1 source) Spasm of bladder; Translations: [Other specified disorders of bladder] 03-27-2025 Chronic Other diseases of bladder and urethra (2 sources) Other specified disorders of bladder; Translations: [Other specified disorders of bladder] Onset: 03-27-2025 Chronic Other nutritional; endocrine; and metabolic disorders (1 source) Abnormal weight gain; Translations: [Abnormal weight gain] Onset: 12-27-2024 Episodic Other screening for suspected conditions (not mental disorders or infectious disease) (1 source) Other specified abnormal findings of blood chemistry; Translations: [Low testosterone] Onset: 12-27-2024 Episodic Results Test Name Value Interpretation Reference Range Facility 36on 05-12-2025 36 Spoke to pt, advised of Manuel's message. Voiced understanding. Will follow up as planned [facility] 36 ----- Message from JOIE Hudson CNP sent at 05/12/2025 4:19 PM EDT ----- Please let pt know that his RYDER did not show any stones or hydronephrosis. He can follow up as needed. ----- Message ----- From: Interface, Radiology Results In Sent: 05/09/2025 2:53 PM EDT To: JOIE Hartmann CNP [facility] US RETROPERITONEALon 025 US RETROPERITONEAL Patient Name: GERRI WALLER : 1990 Exam Date/Time: 05/09/2025 13:20 Procedure: US RETROPERITONEAL Ordering Provider: SANDOVAL JEANNIE Reason For Exam: left flank pain EXAMINATION: RENAL ULTRASOUND HISTORY: Ureterolithiasis. TECHNIQUE: Sonography of the kidneys and urinary bladder was performed. Images were obtained and stored in a permanent archive. COMPARISON: CT abdomen/pelvis 03/24/2025 RESULT: Right Kidney: -Renal length: 12.3 cm -Parenchyma: Normal parenchymal echogenicity. Normal parenchymal thickness. -Collecting system: No hydronephrosis. -Calculus: No echogenic, shadowing calculus. -Lesion: None where visualized. Left Kidney: -Renal length: 12.3 cm -Parenchyma: Normal parenchymal echogenicity. Normal parenchymal thickness. -Collecting system: No hydronephrosis. -Calculus: No echogenic, shadowing calculus. -Lesion: None where visualized. Bladder: Normal sonographic appearance. Bilateral ureteral jets noted. IMPRESSION: No echogenic shadowing calculus or hydronephrosis. Report Dictated on Electronically Signed By: Chan Lara MD Electronically Signed Date/Time: 05/09/2025 2:52 PM EDT [facility] US Retroperitoneumon 025 No echogenic shadowing calculus or hydronephrosis. Report Dictated on Electronically Signed By: Chan Lara MD Electronically Signed Date/Time: 05/09/2025 2:52 PM EDT [facility] Patient Name: GERRI WALLER : 1990 Exam Date/Time: 05/09/2025 13:20 Procedure: US RETROPERITONEAL Ordering Provider: SANDOVAL JEANNIE Reason For Exam: left flank pain EXAMINATION: RENAL ULTRASOUND HISTORY: Ureterolithiasis. TECHNIQUE: Sonography of the kidneys and urinary bladder was performed. Images were obtained and stored in a permanent archive. COMPARISON: CT abdomen/pelvis 03/24/2025 RESULT: Right Kidney: -Renal length: 12.3 cm -Parenchyma: Normal parenchymal echogenicity. Normal parenchymal thickness. -Collecting system: No hydronephrosis. -Calculus: No echogenic, shadowing calculus. -Lesion: None where visualized. Left Kidney: -Renal length: 12.3 cm -Parenchyma: Normal parenchymal echogenicity. Normal parenchymal thickness. -Collecting system: No hydronephrosis. -Calculus: No echogenic, shadowing calculus. -Lesion: None where visualized. Bladder: Normal sonographic appearance. Bilateral ureteral jets noted. [facility] Chan Lara MD - 05/09/2025 Patient Name: GERRI WALLER : 1990 Exam Date/Time: 05/09/2025 13:20 Procedure: US RETROPERITONEAL Ordering Provider: SANDOVAL JEANNIE Reason For Exam: left flank pain EXAMINATION: RENAL ULTRASOUND HISTORY: Ureterolithiasis. TECHNIQUE: Sonography of the kidneys and urinary bladder was performed. Images were obtained and stored in a permanent archive. COMPARISON: CT abdomen/pelvis 03/24/2025 RESULT: Right Kidney: -Renal length: 12.3 cm -Parenchyma: Normal parenchymal echogenicity. Normal parenchymal thickness. -Collecting system: No hydronephrosis. -Calculus: No echogenic, shadowing calculus. -Lesion: None where visualized. Left Kidney: -Renal length: 12.3 cm -Parenchyma: Normal parenchymal echogenicity. Normal parenchymal thickness. -Collecting system: No hydronephrosis. -Calculus: No echogenic, shadowing calculus. -Lesion: None where visualized. Bladder: Normal sonographic appearance. Bilateral ureteral jets noted. IMPRESSION: No echogenic shadowing calculus or hydronephrosis. Report Dictated on Electronically Signed By: Chan Lara MD Electronically Signed Date/Time: 05/09/2025 2:52 PM EDT [facility] Radiology Study observation (narrative) [facility] US RetroperitoneumOrdered By : Chan Lara on 05-09-2025 [facility] Work Phone: 36on 05-01-2025 36 Patient was gave mes antonette verbatim per Pt verbalized understanding and stated he has already been prescribed something else. Normal [facility] AMB POC URINALYSIS DIP STICK AUTO W/O MICROon 05-01-2025 Bilirubin, UA Negative [facility] Blood, UA Trace-Intact [facility] Glucose, UA Negative [facility] Ketones, UA (mg/dL) Negative Negative mg/dL [facility] Leukocytes, UA Negative [facility] Nitrite, UA Negative [facility] pH, UA 7.0 [facility] Protein, UA Negative [facility] Spec Grav, UA 1.010 [facility] Urobilinogen, UA 0.2 [facility] Office Visiton 05-01-2025 Follow-up visit [id number] Eloy Waller 1990 M Date Provider Department Center 05/01/[address] [facility] URO None No family history on file Level of Service:75049 [place] OFFICE/OUTPATIENT ESTABLISHED LOW MDM 20 MIN Reason for Visit and Comments: Other [0] - 4 week follow up, kidney stones PVR 73ml Left side and groin pain, 7/10, constant that is described as dull and at times sharp Dysuria, stream variability with dribbling, unsure if emptying bladder fully Normal [facility] Progress Noteon 05-01-2025 Progress Note . Urology Office Visit [facility] [address], [address] [facility] [address] Visit type: Established Patient Reason for Visit: Other (4 week follow up, kidney stones/PVR 73ml/Left side and groin pain, 06/05, constant that is described as dull and at times sharp/Dysuria, stream variability with dribbling, unsure if emptying bladder fully ) Assessment and Plan Diagnoses and all orders for this visit: Ureterolithiasis - AMB POC URINALYSIS DIP STICK AUTO W/O MICRO - ketorolac (Toradol) 10 MG tablet; Take 1 tablet (10 mg) by mouth 3 times daily (with meals) for 5 days. - US retroperitoneum; Future Flank pain - US retroperitoneum; Future Follow up in 4 weeks (on 05/29/2025), or if symptoms worsen or fail to improve, for kidney stone. Elda Guadarrama is a 34-year-old male here today for 4-week follow-up regarding kidney stones. Last OV was 03/27/2025 for follow-up after being seen in the ED for complaints of flank pain. CT in the ED showed a 4 mm calculus in the distal left ureter. Daily and Zofran as needed. Patient was also given oxycodone in the ED as well as a refill of his visit with me. 04/26/2025 KUB showed no appreciable renal or ureteral calculus. I did review the imaging as well and was not able to see 1 kidney stones. Is having left flank pain and now has pain in the penis that is constant and worse at times with urinating. Denies hematuria Denies fever/chills. Denies burning with urination. Denies nausea. Assessment/Plan: - Continue flomax/oxybutynin. - Sending Toradol to help with pain. Stop OTC NSAIDs. - Will get RYDER to check for hydro. - Strain urine and bring stone in for analysis if passes - follow up in 4 weeks. Review of Systems Allergies[1] Current Medications[2] Medical History[3] Social History[4] Surgical History[5] Surgical History[6] Family History[7] Objective BP 124/77 (BP Location: Left arm, Patient Position: Sitting, BP Cuff Size: Adult long) Pulse 90 Physical Exam Constitutional: Appearance: Normal appearance. Neurological: Mental Status: He is alert. Psychiatric: Mood and Affect: Mood normal. Behavior: Behavior normal. Thought Content: Thought content normal. Data Reviewed POCT: Labs: Imaging/Testing: Chart Clean Up: There are no discontinued medications. Manuel Sandoval, JOIE - BARRIE 05/01/2025 8:59 AM [1] No Known Allergies [2] Current Outpatient Medications: ketorolac (Toradol) 10 MG tablet, Take 1 tablet (10 mg) by mouth 3 times daily (with meals) for 5 days., Disp: 15 tablet, Rfl: 0 OMEPRAZOLE PO, Take by mouth., Disp: , Rfl: oxybutynin XL (Ditropan XL) 10 MG 24 hr tablet, Take 1 tablet (10 mg) by mouth daily. Do not crush, chew, or split., Disp: 30 tablet, Rfl: 11 [3] Past Medical History: Diagnosis Date GERD (gastroesophageal reflux disease) Hypertension [4] Social History Socioeconomic History Marital status: Single Tobacco Use Smoking status: Former Types: Cigarettes Vaping Use Vaping status: Every Day Substances: Nicotine Substance and Sexual Activity Drug use: Not Currently [5] No past surgical history on file. [6] No past surgical history on file. [7] No family history on file. [facility] 04-29-2025 36 Patient called back in stating his pharmacy has not received a script for his pain medication. Message released to patient as written. Tricia Lentz, RN Registered Nurse Signed Yesterday I advised for the patient to take the flomax and oxybutynin he still has and any OTC tylenol or ibuprofen in the meantime. Patient's further questions if applicable: Patient is requesting a refill. Were all questions from office addressed or relayed to the patient from encounter: Yes [facility] 04-28-2025 36 Call placed to the patient and advised of manuel's message verbatim. The patient states he has not seen any stones pass and is still having the left flank pain that radiates around his side, but he is now having this pain on the other (right) side additionally. The patient states his pain is a 7-8/10 without medication and a 4-5/10 when he takes medication. He would like to know if more pain medication can be sent in for him since his pharmacy does not have anything on file. He would like the 800 MG ibuprofen and oxycodone if possible. I advised for the patient to take the flomax and oxybutynin he still has and any OTC tylenol or ibuprofen in the meantime. Patient voiced understanding. Please advise if the patient can have his pain medications refilled and any other advice for the pain since his KUB was negative. [facility] 36 ----- Message from JOIE Hudson CNP sent at 04/28/2025 1:01 PM EDT ----- Please let patient know that his abdominal x-ray did not show any renal or ureteral stones. ----- Message ----- From: Interface, Radiology Results In Sent: 04/28/2025 4:21 AM EDT To: JOIE Hartmann CNP [facility] [id number] 36 Ordering provider: Jaime Date of last office visit: 03/27/25 Date of next office visit: 05/01/25 Updated/Validated preferred pharmacy: Yes -[facility] Patient instructed to contact the pharmacy prior to picking up the medication: Yes (1) Medication name: oxyCODONE-acetaminophen (Percocet) Medication dosage: 5-325 mg (Miligrams Monthly quantity needed: 8 How many day supply requestin Days Medication route: oral (PO) Medication administration time(s): Take 1 tablet by mouth every 6 hours as needed for severe pain (7-10) for up to 5 days. If taking medication PRN, reason for taking medication: Severe Pain If this is a controlled substance do you receive this or any other controlled medication from any other doctor or facility: No Date of last refill (see medication tab): 03/27/25 (2) Medication name: ibuprofen Medication dosage: 800 mg (Miligrams Monthly quantity needed: 120 How many day supply requestin days Medication route: oral (PO) Medication administration time(s): Take 1 tablet (800 mg) by mouth every 6 hours as needed for moderate pain (4-6). If taking medication PRN, reason for taking medication: Moderate Pain If this is a controlled substance do you receive this or any other controlled medication from any other doctor or facility: No Date of last refill (see medication tab): 03/28/25 [facility] 36on 03-31-2025 36 Called and verified new order was received by pharmacy Normal [facility] 36on 03-27-2025 36 Name of caller: Erick duvall Contact phone number: [phone] Relationship to Patient: patient Provider: Jaime Practice: urology Chief Complaint/Reason for Call: pharmacy is calling in needing clarification on the instructions for the patients ibuprofen 800 MG tablet [[id number]] . They will wait to hear back from the office. Please advise and thank you Best time of day caller can be reached: any Patient advised that office/PCP has 24-48 business hours to return their call: Yes Normal [facility] Office Visiton 03-27-2025 Follow-up visit [id number] Eloy Waller devaughn 1990 M Date Provider Department Center 03/27/2025 [id number]OV[facility] U[facility] None No family history on file Level of Service:46248 [place] OFFICE/OUTPATIENT NEW MODERATE MDM 45 MINUTES Reason for Visit and Comments: Urolithiasis [539] - Pain in lower back, bilaterally,constant, pain radiates around to left lower abdomen and down both legs, pain is 5/10 at this time, Urination has slowed down and become more frequent Denies fever, chills, nausea, vomiting or blood seen in urine Normal [facility] Progress Noteon 03-27-2025 Progress Note Manuel Sandoval, JOIE - ER TECH 03/27/2025 at 12:29 PM Urology Office Visit PATIENT NAME: Gerri Waller DATE OF : 1990 TODAY'S DATE: 03/27/2025 Chief Complaint: Chief Complaint Patient presents with Urolithiasis Pain in lower back, bilaterally,constant, pain radiates around to left lower abdomen and down both legs, pain is 5/10 at this time, Urination has slowed down and become more frequent Denies fever, chills, nausea, vomiting or blood seen in urine History of Present Illness: Mr. Waller is a 34 y.o. male who presents with nephrolithiasis Symptoms started over the past weekend (about 5 days ago). Was seen in the ED on 03/24/25 for complaints of left flank pain. Flank Pain: Left flank. 6/10 Gross hematuria: Denies Dysuria: yes Urgency/frequency: yes Nausea / poor oral intake: not currently but does have some zofran to take Fevers or chills at home: denies Passage of stone: no. Denies personal history of kidney stones. Does have family history of kidney stones. Prior stone work up: CT showed calculus in the distal left ureter measuring approximately 4 m. Assessment/Plan: Continue flomax daily and zofran as needed. Will add oxybutynin for spasms. May take ibuprofen every 6-8 hours prn for pain. A 1x refill of oxycodone was sent. Encouraged pt to try to take ibuprofen as much as possible in lieu of the oxycodone. Discussed increasing water intake. Information provided regarding dietary modifications for stone prevention. Follow up in 4 weeks with KUB prior. Discussed returning to ED if develops fever, worsening pain, hematuria, N/V, or inability to urinate. Review of Systems Past Medical History: Past Medical History: Diagnosis Date GERD (gastroesophageal reflux disease) Hypertension Past Surgical History: No past surgical history on file. Vitals: BP 133/76 Pulse 88 Ht 5' 11 (1.803 m) Wt 260 lb (118 kg) BMI 36.26 kg/m? Physical Exam Constitutional: Appearance: Normal appearance. Neurological: Mental Status: He is alert. Psychiatric: Mood and Affect: Mood normal. Behavior: Behavior normal. Thought Content: Thought content normal. Data: @LASTPROCPOC@ Radiology Review: CT abdomen pelvis wo IV contrast Narrative: [facility] 1990 [id number] Exam Date/Time: 03/24/2025 10:25 Procedure: CT ABDOMEN PELVIS WO IV CONTRAST Ordering Provider: RAMIREZ MARK Reason For Exam: FLANK PAIN EXAMINATION: CT ABDOMEN PELVIS WO IV CONTRAST CLINICAL HISTORY: FLANK PAIN. Left flank pain COMPARISON: None TECHNIQUE: CT of the abdomen and pelvis without contrast. Dose reduction was employed with automated exposure control. FINDINGS: Included images of the lower thorax: No focal lung consolidation or pleural effusion. Hepatobiliary: Unremarkable liver without biliary dilation evident. Pancreas: Unremarkable Spleen: Unremarkable Adrenal Glands: Unremarkable Kidneys and ureters: Calculus is noted in the distal left ureter measuring approximately 4 mm. Abdominal vasculature: Unremarkable GI tract: No evidence of obstruction. The appendix is normal. Peritoneum and retroperitoneum: No free fluid or free air is noted. Lymph Nodes: No abdominal lymphadenopathy is evident. Pelvis: Unremarkable Visualized musculoskeletal structures: No acute fracture or destructive osseous lesion is identified. Impression: 1. Calculus in the distal left ureter measuring approximately 4 mm Report Dictated on Electronically Signed By: Gerri Egan MD Electronically Signed Date/Time: 03/24/2025 10:49 AM EDT Procedure: Impression/Plan Gerri was seen today for urolithiasis. Diagnoses and all orders for this visit: Ureterolithiasis (Primary) - [facility] Urology - tamsulosin (Flomax) 0.4 MG 24 hr capsule; Take 1 capsule (0.4 mg) by mouth daily. - XR abdomen 1 view; Future - oxyCODONE-acetaminophen (Percocet) 5-325 MG tablet; Take 1 tablet by mouth every 6 hours as needed for severe pain (7-10) for up to 5 days. - ibuprofen 800 MG tablet; Take 1 tablet (800 mg) by mouth every 6 hours as needed for moderate pain (4-6). Take one tab every 8 hours x3 days, THEN, take one take every 8 hours as needed for pain. Bladder spasms - oxybutynin XL (Ditropan XL) 10 MG 24 hr tablet; Take 1 tablet (10 mg) by mouth daily. Do not crush, chew, or split. - Patient presents today for follow up of nephrolithiasis. - Since last visit denies experiencing any symptom/sign of calculus. - Reviewed most recent KUB with patient. - Advised to increase oral hydration and follow appropriate stone prevention diet. Hand out provided. - Advised to report to the nearest emergency department should symptoms arise including uncontrollable pain, fever +/- chills, inability to void, intractable nausea and/or vomiting. The patient verbalizes understanding. (more content not included)... Normal [facility] 36on 03-26-2025 36 Returned the patient call. Scheduled 03/27/25 Parvin 11:00 AM with TAMMIE Manuel. *ER follow up Ureterolithiasis * [facility] 36 Name of caller: Santhosh mooney Contact phone number: [phone] Relationship to Patient: patient Provider: Dr. Veliz Practice: [facility] Urology Chief Complaint/Reason for Call: Pt is returning a call to schedule a ER follow up for Ureterolithiasis. Please review. Best time of day caller can be reached: any Patient advised that office/PCP has 24-48 business hours to return their call: Yes Normal [facility] 36 Attempted to return the call to schedule a new patient appt *ER follow up for Ureterolithiasis *. No Answer. LVM to call back to schedule. Normal [facility] CBC W Auto Differential pane l (Bld)on 03-24-2025 Basophils (Bld) [#/Vol] 0.1 10*3/uL 0.0 - 0.2 10*3/uL [facility] Basophils/100 WBC (Bld) 1.1 % 0.0 - 2.0 % [facility] Eosinophils (Bld) [#/Vol] 0.4 10*3/uL 0.0 - 0.5 10*3/uL [facility] Eosinophils/100 WBC (Bld) 5.1 % 0.0 - 6.0 % [facility] Erythrocyte distribution width (RBC) [Ratio] 11.8 % 11.5 - 15.0 % [facility] Hematocrit (Bld) [Volume fraction] 46.9 % 40.0 - 52.0 % [facility] Hemoglobin (Bld) [Mass/Vol] 16 g/dL 13.0 - 18.0 g/dL [facility] Immature granulocytes (Bld) [#/Vol] 0 10*3/uL NINF - 0.1 10*3/uL [facility] Immature granulocytes/100 WBC (Bld) 0.3 % 0.0 - 2.0 % [facility] Interpretation and review of laboratory results Normal [facility] Lymphocytes (Bld) [#/Vol] 2 10*3/uL 1.0 - 4.3 10*3/uL [facility] Lymphocytes/100 WBC (Bld) 27.7 % 15.0 - 45.0 % [facility] MCH (RBC) [Entitic mass] 31.9 pg 26. 0 - 34.0 pg [facility] MCHC (RBC) [Mass/Vol] 34.1 % 30.5 - 36.0 % [facility] MCV (RBC) [Entitic vol] 93.4 fL 77.0 - 99.0 fL [facility] Monocytes (Bld) [#/Vol] 0.6 10*3/uL 0.0 - 0.9 10*3/uL [facility] Monocytes/100 WBC (Bld) 8.4 % 5.0 - 13.0 % [facility] Neutrophils (Bld) [#/Vol] 4.2 10*3/uL 1.8 - 7.5 10*3/uL [facility] Neutrophils/100 WBC (Bld) 57.4 % 38.0 - 82.0 % [facility] Nucleated RBC/100 WBC (Bld) [Ratio] 0 % [facility] Platelet mean volume (Bld) [Entitic vol] 10.6 fL 9.0 - 12.7 fL [facility] Comment on above: MPV is a calculated measurement using platelet volume ratio Platelets (Bld) [#/Vol] 254 10*3/uL 140 - 440 10*3/uL [facility] RBC (Bld) [#/Vol] 5.02 10*6/uL 4.40 - 5.90 10*6/uL [facility] WBC (Bld) [#/Vol] 7.3 10*3/uL 3.6 - 10.7 10*3/uL [facility] CBC WITH AUTO DIFFERENTIALon 03-24-2025 Basophils (Bld) [#/Vol] 0.1 10*3/uL Normal 0.0-0.2 [facility] Comment on above: Performed By: #### L [id number] ####University Relations Director: LATONIA VILLA ([id number])[facility] Edit[employer] MedicineKYLAHAN (SWRLAB)[address] [place] [address] Basophils/100 WBC (Bld) 1.1 % Normal 0.0-2.0 [facility] Comment on above: Performed By: #### L [id number] ####University Relations Director: LATONIA VILLA ([id number])[facility] Editas MedicineTMAN (SWRLAB)[address] [place] [address] Eosinophils (Bld) [#/Vol] 0.4 10*3/uL Normal 0.0-0.5 [facility] Comment on above: Performed By: #### L [id number] ####University Relations Director: LATONIA VILLA ([id number])CINTIA RICE RITTMAN (SWRLAB)[address] [place] [address] [place] Eosinophils/100 WBC (Bld) 5.1 % Normal 0.0-6.0 [facility] Comment on above: Performed By: #### L [id number] ####University Relations Director: LATONIA VILLA ([id number])[facility] RICE RITTMAN (SWRLAB)[address] [place] [address] Erythrocyte distribution width (RBC) [Ratio] 11.8 % Normal 11.5-15.0 [facility] Comment on above: Performed By: #### L [id number] ####University Relations Director: LATONIA VILLA ([id number])[facility] RICE RITTMAN (SWRLAB)[address] [place] [address] Hematocrit (Bld) [Volume fraction] 46.9 % Normal 40.0-52.0 [facility] Comment on above: Performed By: #### L [id number] ####University Relations Director: LATONIA VILLA ([id number])[facility] RICE [facility]IT[facility] (SWRLAB)[address] [place] [address] Hemoglobin (Bld) [Mass/Vol] 16.0 g/dL Normal 13.0-18.0 [facility] Comment on above: Performed By: #### L [id number] ####University Relations Director: LATONIA VILLA ([phone])[facility]ICE [facility]TM[facility] (SWRLAB)[address] [place] [address] [place] IMMATURE GRANS % 0.3 % Normal 0.0-2.0 [facility] Comment on above: Performed By: #### L [id number] ####University Relations Director: LATONIA VILLA ([id number])[facility]ICE [facility] (SWRLAB)[address] [place] [address] IMMATURE GRANS ABSOLUTE 0.0 10*3/uL Normal <0.1 [facility] Comment on above: Performed By: #### L [id number] ####University Relations Director: LATONIA VILLA ([id number])CINTIA RICE RITTM[employer] (SWRLAB)[address] [place] [address] [place] Lymphocytes (Bld) [#/Vol] 2.0 10*3/uL Normal 1.0-4.3 [facility] Comment on above: Performed By: #### L [id number] ####University Relations Director: LATONIA VILLA ([id number])[facility] RICE [facility]ITTM[facility] (SWRLAB)[address] [place] [address] Lymphocytes/100 WBC (Bld) 27.7 % Normal 15.0-45.0 [facility] Comment on above: Performed By: #### L [id number] ####University Relations Director: LATONIA VILLA ([id number])[facility] R[facility] (SWRLAB)[address] [place] [address] MCH (RBC) [Entitic mass] 31.9 pg Normal 26.0-34.0 [facility] Comment on above: Performed By: #### L [id number] ####University Relations Director: LATONIA VILLA ([id number])[facility] (SWRLAB)[address] [place] [address] MCHC 34.1 % Normal 30.5-36.0 [facility] Comment on above: Performed By: #### L [id number] ####University Relations Director: LATONIA VILLA ([id number])CINTIA RICE RITTMAN (SWRLAB)[address] [place] [address] MCV (RBC) [Entitic vol] 93.4 fL Normal 77.0-99.0 [facility] Comment on above: Performed By: #### L [id number] ####University Relations Director: LATONIA VILLA ([id number])CINTIA RICE RITTMAN (SWRLAB)[address] [place] [address] [place] Monocytes (Bld) [#/Vol] 0.6 10*3/uL Normal 0.0-0.9 [facility] Comment on above: Performed By: #### L [id number] ####University Relations Director: ALTONIA VILLA ([id number])[employer] (SWRLAB)[address] [place] [address] [place] Monocytes/100 WBC (Bld) 8.4 % Normal 5.0-13.0 [facility] Comment on above: Performed By: #### L [id number] ####University Relations Director: LATONIA VILLA ([id number])CINTIA BOURGEOISWORTH RITTMAN (SWRLAB)[address] [place] [address] [place] NEUTROPHILS ABSOLUTE 4.2 10*3/uL Normal 1.8-7.5 [facility] Comment on above: Performed By: #### L [id number] ####University Relations Director: LATONIA VILLA ([id number])CINTIA RICE RITTMAN (SWRLAB)[address] [place] [address] [place] Neutrophils/100 WBC (Bld) 57.4 % Normal 38.0-82.0 [facility] Comment on above: Performed By: #### L [id number] ####University Relations Director: LATONIA VILLA ([id number])CINTIA R[employer] (SWRLAB)[address] [place] [address] [place] NRBC 0.0 /100 WBCs Normal 0.0-2.0 [facility] Comment on above: Performed By: #### L [id number] ####University Relations Director: LATONIA VILLA ([id number])CINTIA R[employer] (SWRLAB)[address] [place] [address] [place] Platelet mean volume (Bld) [Entitic vol] 10.6 fL Normal 9.0-12.7 [facility] Comment on above: Result Comment: MPV is a calculated measurement using platelet volume ratio Performed By: #### L [id number] ####University Relations Director: LATONIA VILLA ([id number])CHRISA KRYSTAL RITTMAN (SWRLAB)[address] Platelets (Bld) [#/Vol] 254 10*3/uL Normal 140-440 [facility] Comment on above: Performed By: #### L [id number] ####University Relations Director: LATONIA VILLA ([id number])[facility] (SWRLAB)[address] RBC (Bld) [#/Vol] 5.02 10*6/uL Normal 4.40-5.90 [facility] Comment on above: Performed By: #### L [id number] ####University Relations Director: LATONIA VILLA ([id number])[facility] (SWRLAB)[address] [place] [address] WBC (Bld) [#/Vol] 7.3 10*3/uL Normal 3.6-10.7 [facility] Comment on above: Performed By: #### L [id number] ####University Relations Director: LATONIA VILLA ([id number])[facility] (SWRLAB)[address] [place] [address] COMPLETE URINALYSISon 2024 BACTERIA (#/HPF) IN URINE Few Abnormal Negative [facility] Comment on above: Performed By: #### L [id number] ####University Relations Director: LATONIA VILLA ([id number])[facility] R[facility] (SWRLAB)[address] [place] [address] BILIRUBIN, TOTAL PRESENCE IN URINE Negative Normal Negative [facility] Comment on above: Performed By: #### L [id number] ####University Relations Director: LATONIA VILLA ([id number])[facility] R[facility] (SWRLAB)[address] [place] [address] Clarity (U) Clear Normal Clear [facility] Comment on above: Performed By: #### L [id number] ####University Relations Director: LATONIA VILLA ([id number])[facility] (SWRLAB)[address] [place] [address] [place] Color (U) Light Yellow Normal Lt. Yellow [facility] Comment on above: Performed By: #### L [id number] ####University Relations Director: LATONIA VILLA ([id number])[facility]ICE [facility] (SWRLAB)[address] [place] [address] [place] GLUCOSE (MG/DL) IN URINE Normal Normal Nor mal (<70) [facility] Comment on above: Performed By: #### L [id number] ####University Relations Director: LATONIA VILLA ([id number])[facility] RICE [facility]TM[facility] (SWRLAB)[address] HEMOGLOBIN PRESENCE IN URINE 0.03 mg/dL Abnormal Negative [facility] Comment on above: Performed By: #### L [id number] ####University Relations Director: LATONIA VILLA ([id number])[facility] RICE [facility]TM[facility] (SWRLAB)[address] [place] [address] [place] Ketones Ql (U) Negative Normal Negative [facility] Comment on above: Performed By: #### L [id number] ####University Relations Director: LATONIA VILLA ([id number])[facility] RICE [facility]ITTMAN (SWRLAB)[address] [place] [address] [place] LEUKOCYTE ESTERASE PRESENCE IN URINE BY TEST STRIP Negative Normal Negative [facility] Comment on above: Performed By: #### L [id number] ####University Relations Director: LATONIA VILLA ([id number])[facility] RICE [facility]ITTM[facility] (SWRLAB)[address] [place] [address] [place] NITRITE PRESENCE IN URINE Negative Normal Negative [facility] Comment on above: Performed By: #### L [id number] ####University Relations Director: LATONAI VILLA ([id number])[facility] RICE [facility]ITTM[facility] (SWRLAB)[address] [place] [address] [place] pH (U) 7.0 [pH] Normal 5.0-8.0 [facility] Comment on above: Performed By: #### L [id number] ####University Relations Director: LATONIA VILLA ([id number])[facility] RICE [facility]ITTMAN (SWRLAB)[address] [place] [address] Protein (U) [Mass/Vol] Negative Normal Negative [facility] Comment on above: Performed By: #### L [id number] ####University Relations Director: LATONIA VILLA ([id number])[facility] RICE RITTMAN (SWRLAB)[address] [place] [address] [place] RBC (#/HPF) IN URINE SEDIMENT 0-2 Normal 0-2 [facility] Comment on above: Performed By: #### L [id number] ####University Relations Director: LATONIA VILLA ([id number])[facility] RICE [facility] (SWRLAB)[address] [place] [address] Specific gravity (U) [Rel density] 1.011 Normal 1.005-1.03 0 [facility] Comment on above: Performed By: #### L [id number] ####University Relations Director: LATONIA VILLA ([id number])[facility] R[facility] (SWRLAB)[address] [place] [address] Specimen volume (U) 12 mL Normal [facility] Comment on above: Performed By: #### L [id number] ####University Relations Director: LATONIA VILLA ([id number])[facility]TM[facility] (SWRLAB)[address] [place] [address] [place] SQUAMOUS EPITHELIAL CELLS (#/HPF) IN URINE SEDIMENT Negative Normal 3-5 [facility] Comment on above: Performed By: #### L [id number] ####University Relations Director: LATONIA VILLA ([id number])[facility] (SWRLAB)[address] [place] [address] [place] UROBILINOGEN (MG/DL) IN URINE Normal Normal Normal (0-1) [facility] Comment on above: Performed By: #### L [id number] ####University Relations Director: LATONIA VILLA ([id number])[facility] R[facility] (SWRLAB)[address] WBC (LEUKOCYTE) (#/HPF) IN URINE SEDIMENT Negative Normal 0-5 [facility] Comment on above: Performed By: #### L [id number] ####University Relations Director: LATONIA VILLA ([id number])[facility] (SWRLAB)[address] COMPREHENSIVE METABOLIC PANE [place] 03-24-2025 Albumin [Mass/Vol] 4.2 g/dL Normal 3.5-5.0 [facility] Comment on above: Performed By: #### L [id number] #### University Relations Director: LATONIA VILLA ([id number]) [facility] (SWRLAB) [address] ALP [Catalytic activity/Vol] 101 U/L Normal 40-150 [facility] Comment on above: Performed By: #### L [id number] #### University Relations Director: LATONIA VILLA ([id number]) [facility] (SWRLAB) [address] ALT [Catalytic activity/Vol] 20 U/L Normal <40 [facility] Comment on above: Performed By: #### L [id number] #### University Relations Director: LATONIA VILLA ([id number]) [facility] (SWRLAB) [address] Anion gap [Moles/Vol] 7 mmol/L Normal 3-13 [facility] Comment on above: Performed By: #### L [id number] #### University Relations Director: LATONIA VILLA ([id number]) [facility] BOURGEOISKRYSTAL RITTMAN (SWRLAB) [address] AST [Catalytic activity/Vol] 21 U/L Normal <34 [facility] Comment on above: Performed By: #### L [id number] #### University Relations Director: LATONIA VILLA ([id number]) [facility] KRYSTAL RITTMAN (SWRLAB) [address] [place] [address] [place] Bilirubin [Mass/Vol] 0.8 mg/dL Normal <1.2 [facility] Comment on above: Performed By: #### L [id number] #### University Relations Director: LATONIA VILLA ([id number]) [facility] R[facility]TM[facility] (SWRLAB) [address] [place] [address] [place] Calcium [Mass/Vol] 9.6 mg/dL Normal 8.4-10.2 [facility] Comment on above: Performed By: #### L [id number] #### University Relations Director: LATONIA VILLA ([id number]) [facility] R[facility] (SWRLAB) [address] Chloride [Moles/Vol] 107 mmol/L Normal 98-107 [facility] Comment on above: Performed By: #### L [id number] #### University Relations Director: LATONIA VILLA ([id number]) [facility] RICE RITTMAN (SWRLAB) [address] [place] [address] [place] CO2 [Moles/Vol] 24 mmol/L Normal 22-29 [facility] Comment on above: Performed By: #### L [id number] #### University Relations Director: LATONIA VILLA ([id number]) [facility] R[facility] (SWRLAB) [address] [place] [address] [place] Creatinine [Mass/Vol] 0.78 mg/dL Normal 0.72-1.25 [facility] Comment on above: Performed By: #### L [id number] #### University Relations Director: LATONIA VILLA ([id number]) [facility] (SWRLAB) [address] [place] [address] GLOMERULAR FILTRATION RATE ML/MIN/1.73 SQ M.PREDICTED >90.0 Normal >60.0 [facility] Comment on above: Result Comment: Calc ulation based on the Chronic Kidney Disease Epidemiology Collaboration (CKD-EPI) equation refit without adjustment for race Performed By: #### L [id number] #### University Relations Director: LATONIA VILLA ([id number]) [facility] (SWRLAB) [address] [place] [address] Glucose [Mass/Vol] 96 mg/dL Normal 74-100 [facility] Comment on above: Performed By: #### L [id number] #### University Relations Director: LATONIA VILLA ([id number]) [facility] (SWRLAB) [address] [place] [address] Potassium [Moles/Vol] 4.5 mmol/L Normal 3.5-5.1 [facility] Comment on above: Result Comment: [facility] potassium values may be up to 0.5 mmol/L lower than serum values. Performed By: #### L [id number] #### University Relations Director: LATONIA VILLA ([id number]) [facility] (SWRLAB) [address] [place] [address] Protein [Mass/Vol] 7.5 g/dL Normal 6.4-8.3 [facility] Comment on above: Performed By: #### L [id number] #### University Relations Director: LATONIA VILLA ([id number]) [facility] (SWRLAB) [address] [place] [address] Sodium [Moles/Vol] 138 mmol/L Normal 136-145 [facility] Comment on above: Performed By: #### L [id number] #### University Relations Director: LATONIA VILLA ([id number]) [facility] (SWRLAB) [address] [place] [address] [place] Urea nitrogen [Mass/Vol] 13 mg/dL Normal 8-21 [facility] Comment on above: Performed By: #### L [id number] #### University Relations Director: LATONIA VILLA ([id number]) [facility] (SWRLAB) [address] [place] [address] CT ABDOMEN PELVIS WO IV CONT RASTon 03-24-2025 CT ABDOMEN PELVIS WO IV CONTRAST Patient Name: GERRI WALLER : 1990 Exam Date/Time: 03/24/2025 10:25 Procedure: CT ABDOMEN PELVIS WO IV CONTRAST Ordering Provider: RAMIREZ MARK Reason For Exam: FLANK PAIN EXAMINATION: CT ABDOMEN PELVIS WO IV CONTRAST CLINICAL HISTORY: FLANK PAIN. Left flank pain COMPARISON: None TECHNIQUE: CT of the abdomen and pelvis without contrast. Dose reduction was employed with automated exposure control. FINDINGS: Included images of the lower thorax: No focal lung consolidation or pleural effusion. Hepatobiliary: Unremarkable liver without biliary dilation evident. Pancreas: Unremarkable Spleen: Unremarkable Adrenal Glands: Unremarkable Kidneys and ureters: Calculus is noted in the distal left ureter measuring approximately 4 mm. Abdominal vasculature: Unremarkable GI tract: No evidence of obstruction. The appendix is normal. Peritoneum and retroperitoneum: No free fluid or free air is noted. Lymph Nodes: No abdominal lymphadenopathy is evident. Pelvis: Unremarkable Visualized musculoskeletal structures: No acute fracture or destructive osseous lesion is identified. IMPRESSION: 1. Calculus in the distal left ureter measuring approximately 4 mm Report Dictated on Electronically Signed By: Gerri Egan MD Electronically Signed Date/Time: 03/24/2025 10:49 AM EDT Pt ambulatory to ED4 with c/o left flank pain that started last night. Pt also c/o difficulty urinating. Denies hx of kidney stones. Normal [facility] CT Abdomen and Pelvis WO con traston 03-24-2025 1. Calculus in the d istal left ureter measuring approximately 4 mm Report Dictated on Electronically Signed By: Gerri Egan MD Electronically Signed Date/Time: 03/24/2025 10:49 AM EDT [facility] Patient Name: GERRI WALLER : 1990 Exam Date/Time: 03/24/2025 10:25 Procedure: CT ABDOMEN PELVIS WO IV CONTRAST Ordering Provider: RAMIREZ MARK Reason For Exam: FLANK PAIN EXAMINATION: CT ABDOMEN PELVIS WO IV CONTRAST CLINICAL HISTORY: FLANK PAIN. Left flank pain COMPARISON: None TECHNIQUE: CT of the abdomen and pelvis without contrast. Dose reduction was employed with automated exposure control. FINDINGS: Included images of the lower thorax: No focal lung consolidation or pleural effusion. Hepatobiliary: Unremarkable liver without biliary dilation evident. Pancreas: Unremarkable Spleen: Unremarkable Adrenal Glands: Unremarkable Kidneys and ureters: Calculus is noted in the distal left ureter measuring approximately 4 mm. Abdominal vasculature: Unremarkable GI tract: No evidence of obstruction. The appendix is normal. Peritoneum and retroperitoneum: No free fluid or free air is noted. Lymph Nodes: No abdominal lymphadenopathy is evident. Pelvis: Unremarkable Visualized musculoskeletal structures: No acute fracture or destructive osseous lesion is identified. [facility] Gerri Egan MD - 03/24/2025 [facility] 1990 [id number] Exam Date/Time: 03/24/2025 10:25 Procedure: CT ABDOMEN PELVIS WO IV CONTRAST Ordering Provider: RAMIREZ MARK Reason For Exam: FLANK PAIN EXAMINATION: CT ABDOMEN PELVIS WO IV CONTRAST CLINICAL HISTORY: FLANK PAIN. Left flank pain COMPARISON: None TECHNIQUE: CT of the abdomen and pelvis without contrast. Dose reduction was employed with automated exposure control. FINDINGS: Included images of the lower thorax: No focal lung consolidation or pleural effusion. Hepatobiliary: Unremarkable liver without biliary dilation evident. Pancreas: Unremarkable Spleen: Unremarkable Adrenal Glands: Unremarkable Kidneys and ureters: Calculus is noted in the distal left ureter measuring approximately 4 mm. Abdominal vasculature: Unremarkable GI tract: No evidence of obstruction. The appendix is normal. Peritoneum and retroperitoneum: No free fluid or free air is noted. Lymph Nodes: No abdominal lymphadenopathy is evident. Pelvis: Unremarkable Visualized musculoskeletal structures: No acute fracture or destructive osseous lesion is identified. IMPRESSION: 1. Calculus in the distal left ureter measuring approximately 4 mm Report Dictated on Electronically Signed By: Gerri Egan MD Electronically Signed Date/Time: 03/24/2025 10:49 AM EDT [facility] Study observation (narrative) [facility] CT Abdomen and Pelvis WO con trastOrdered By: Gerri Egan on 03-24-2025 [facility] Work Phone: Comprehensive metabolic 1998 panelon 03-24-2025 Albumin [Mass/Vol] 4.2 g/dL 3.5 - 5.0 g/dL [facility] ALP [Catalytic activity/Vol] 101 U/L 40 - 150 U/L [facility] ALT [Catalytic activity/Vol] 20 U/L NINF - 40 U/L [facility] Anion gap [Moles/Vol] 7 mmol/L 3 - 13 mmol/L [facility] AST [Catalytic activity/Vol] 21 U/L NINF - 34 U/L [facility] Bilirubin [Mass/Vol] 0.8 mg/dL NINF - 1.2 mg/dL [facility] Calcium [Mass/Vol] 9.6 mg/dL 8.4 - 10. 2 mg/dL [facility] Chloride [Moles/Vol] 107 mmol/L 98 - 10 7 mmol/L [facility] CO2 [Moles/Vol] 24 mmol/L 22 - 29 mmol/L [facility] Creatinine [Mass/Vol] 0.78 mg/dL 0.72 - 1.25 mg/dL [facility] GFR/1.73 sq M.predicted (S/P/Bld) [Vol rate/Area] - PINF [facility] Comment on above: Calculation based on the Chronic Kidney Disease Epidemiology Collaboration (CKD-EPI) equation refit without adjustment for race Glucose [Mass/Vol] 96 mg/dL 74 - 100 mg/dL [facility] Interpretation and review of laboratory results Normal [facility] Potassium [Moles/Vol] 4.5 mmol/L 3.5 - 5.1 mmol/L [facility] Comment on above: Plasma potassium yaniv ues may be up to 0.5 mmol/L lower than serum values. Protein [Mass/Vol] 7.5 g/dL 6.4 - 8.3 g/dL [facility] Sodium [Moles/Vol] 138 mmol/L 136 - 145 mmol/L [facility] Urea nitrogen [Mass/Vol] 13 mg/dL 8 - 21 mg/dL [facility] ED Nursing Noteon 03-24-2025 ED Nursing Note Pt ambulatory to ED4 with c/o left flank pain that started last night. Pt also c/o difficulty urinating. Denies hx of kidney stones. Pain is waxing/waning, rated 6/10 at present. Pt took ibuprofen around 0730. Normal [facility] ED Provider Noteon ED Provider Note EMERGENCY DEPARTMENT ENCOUNTER Pt Name: Gerri Waller Birthdate 1990 Date of evaluation: 03/24/2025 ED Provider: Layne Ramirez MD CHIEF COMPLAINT Chief Complaint Patient presents with Flank Pain HISTORY OF PRESENT ILLNESS (Location/Symptom, Timing/Onset, Context/Setting, Quality, Duration, Modifying Factors, Severity) Note limiting factors. I wore appropriate PPE for the entirety of this encounter. HPI Gerri Waller is a 34 y.o. who presents to the emergency department with chief complaint of left flank pain. Patient states that overnight has been having some intermittent severe sharp pains in the left flank radiating in the left side of the abdomen with associated nausea. He states that when the pain is severe it is a 10 out of 10 but last 10 to 15 minutes and in between he just has an aching pain. He also states that he feels the urge to urinate frequently but is not able to go or when he does it is in small amounts. He denies any burning just has a discomfort when trying to urinate. Denies any hematuria. Patient is never had anything like this before. Feels nauseated but no vomiting. Nursing Notes were reviewed. Limitations to history: None Outside historians: None REVIEW OF SYSTEMS Review of Systems Pertinent positives and negatives as per HPI. PAST MEDICAL HISTORY Past Medical History: Diagnosis Date GERD (gastroesophageal reflux disease) Hypertension SURGICAL HISTORY History reviewed. No pertinent surgical history. CURRENT MEDICATIONS Previous Medications OMEPRAZOLE PO Take by mouth. ALLERGIES Patient has no known allergies. FAMILY HISTORY No family history on file. SOCIAL HISTORY Social History Socioeconomic History Marital status: Single Tobacco Use Smoking status: Former Types: Cigarettes Vaping Use Vaping status: Every Day Substances: Nicotine Substance and Sexual Activity Drug use: Not Currently SCREENINGS PHYSICAL EXAM ED Triage Vitals [03/24/25 0956] Temp Heart Rate Resp BP 37.1 ?C (98.7 ?F) 59 18 139/85 SpO2 Temp src Heart Rate Source Patient Position 99 % -- -- -- BP Location FiO2 (%) -- -- General appearance: Well-appearing, no acute distress. Psych: Awake alert and oriented ?3. Pleasant and cooperative. Skin: Warm and dry. Neck: Supple. Cardiovascular: Regular rate and rhythm Lungs: Clear to auscultation bilaterally, no accessory muscle use, tachypnea, or retractions. Abdomen: Soft, mild lower left tenderness and left CVA tenderness, and nondistended, no rebound, rigidity, or guarding, positive bowel sounds 4 quadrants. Extremities: Warm and well perfused. NROM and SILT throughout upper and lower extermities. DIAGNOSTIC RESULTS Interpretation per the Radiologist below, if available at the time of this note: CT abdomen pelvis wo IV contrast Final Result 1. Calculus in the distal left ureter measuring approximately 4 mm Report Dictated on Electronically Signed By: Gerri Egan MD Electronically Signed Date/Time: 03/24/2025 10:49 AM EDT ED BEDSIDE ULTRASOUND: Performed by ED Physician - none LABS: Labs Reviewed COMPLETE URINALYSIS - Abnormal Result Value Color, Urine Light Yellow Clarity, Urine Clear pH, Urine 7.0 Leukocytes, Urine Negative Nitrite, Urine Negative Protein, Urine Negative Glucose, Urine Normal Bilirubin, Urine Negative Ketones, Urine Negative Urobilinogen, Urine Normal Blood, Urine 0.03 (*) Volume, Urine 12 mL RBC, Urine 0-2 WBC, Urine Negative Squamous Epithelial, Urine Negative Bacteria, Urine Few (*) SPECIFIC GRAVITY OF URINE (NUMERIC) 1.011 CBC WITH AUTO DIFFERENTIAL - Normal Auto WBC 7.3 RBC 5.02 Hemoglobin 16.0 Hematocrit 46.9 MCV 93.4 MCH 31.9 MCHC 34.1 RDW 11.8 Platelets 254 MPV 10.6 nRBC 0.0 Neutrophils Relative 57.4 Lymphocytes Relative 27.7 Monocytes Relative 8.4 Eosinophils Relative 5.1 Basophils Relative 1.1 Immature Grans % 0.3 Neutrophils Absolute 4.2 Lymphocytes Absolute 2.0 Monocytes Absolute 0.6 Eosinophils Absolute 0.4 Basophils Absolute 0.1 Immature Grans Absolute 0.0 COMPREHENSIVE METABOLIC PANEL - Normal SODIUM 138 POTASSIUM 4.5 CHLORIDE 107 CARBON DIOXIDE 24 ANION GAP 7 UREA NITROGEN 13 CREATININE 0.78 GLUCOSE 96 CALCIUM 9.6 AST (SGOT) 21 ALT 20 ALKALINE PHOSPHATASE 101 ALBUMIN 4.2 BILIRUBIN, TOTAL 0.8 TOTAL PROTEIN 7.5 eGFR >90.0 COMPLETE URINALYSIS WITH REFLEX TO CULTURE Narrative: The following orders were created for panel order Urinalysis Complete with reflex to Culture. Procedure Abnormality Status --------- ------ Complete Urinalysis[[id number]] Abnormal Final result Please view results for these tests on the individual orders. All other labs were within normal range or not returned as of this dictation. EMERGENCY DEPARTMENT COURSE and DIFFERENTIAL DIAGNOSIS/MDM: Vital (more content not included)... Normal [facility] Urinalysis complete panel (U )Ordered By: Katy Dumont on 03-24-2025 Bacteria LM.HPF (Urine sed) [#/Area] Few Abnormal Negative /HPF [facility] Bilirubin Ql (U) Negative Negative mg/dL [facility] Clarity (U) Clear Clear [facility] Color (U) Light Yellow Lt. Yellow [facility] Epithelial cells.squamous LM.HPF (Urine sed) [#/Area] Negative [facility] Glucose Ql (U) Normal Normal (<70) mg/dL [facility] Hemoglobin Ql (U) 0.03 mg/dL Abnormal Negative [facility] Interpretation and review of laboratory results Abnormal [facility] Ketones (U) [Mass/Vol] Negative Negat brett mg/dL [facility] Leukocyte esterase Test strip Ql (U) Negative Negative Stephan/uL [facility] Nitrite Ql (U) Negative Negative [facility] pH (U) 7.0 [pH] 5.0 - 8.0 pH [facility] Protein (U) [Mass/Vol] Negative Negat brett mg/dL [facility] RBC LM.HPF (Urine sed) [#/Area] 0-2 [facility] Specific gravity (U) [Rel density] 1.011 1.005 - 1.030 [facility] Urobilinogen (U) [Mass/Vol] Normal Normal (0-1) mg/dL [facility] Volume, Urine 12 mL [facility] WBC LM.HPF (Urine sed) [#/Area] Negative [facility] 25([facility]D3 [facility] 25-hydroxyvitamin D3 [Mass/Vol] 114.0 ng/mL Normal >=30.0 [facility] Comment on above: Order Comment: Speci men Type: BLOOD SPECIMEN Ordering Facility: [facility] Address: [address] [place] [address] Result Comment: Clas sification of 25 [place] Vitamin D status: Deficiency: <= 20.0 ng/ml. Insufficiency: 21.0-29.0 ng/ml. Sufficiency: >= 30.0 ng/ml. Performed By: #### 1 989-3 #### [facility] CLIA [id number] [address] [place] [address] [place] [facility] CBC W Auto Differential pane l (Bld)on 12-27-2024 Basophils (Bld) [#/Vol] 0.05 10*3/uL Normal <0.11 [facility] Comment on above: Order Comment: Speci men Type: BLOOD SPECIMEN Ordering Facility: [facility] Address: [address] [place] [address] Performed By: #### 5 7021-8 #### [facility] CLIA [id number] [address] [place] [address] [place] Basophils/100 WBC (Bld) 0.9 % Normal [facility] Comment on above: Order Comment: Speci men Type: BLOOD SPECIMEN Ordering Facility: [facility] Address: [address] [place] [address] Performed By: #### 5 7021-8 #### [facility] CLIA [id number] [address] OF [place] Differential cell count method Nom (Bld) Auto Normal [facility] Comment on above: Order Comment: Speci men Type: BLOOD SPECIMEN Ordering Facility: [facility] Address: [address] [place] [address] Performed By: #### 5 7021-8 #### [facility] CLIA [id number] [address] [place] [address] [place] Eosinophils (Bld) [#/Vol] 0.34 10*3/uL Normal <0.46 [facility] Comment on above: Order Comment: Speci men Type: BLOOD SPECIMEN Ordering Facility: [facility] Address: [address] [place] [address] Performed By: #### 5 7021-8 #### [facility] CLIA [id number] [address] [place] Eosinophils/100 WBC (Bld) 6.1 % Normal [facility] Comment on above: Order Comment: Speci men Type: BLOOD SPECIMEN Ordering Facility: [facility] Address: [address] [place] [address] Performed By: #### 5 7021-8 #### [facility] CLIA [id number] [address] [place] [address] [place] Erythrocyte distribution width (RBC) [Ratio] 11.7 % Normal 11.5-15.0 [facility] Comment on above: Order Comment: Speci men Type: BLOOD SPECIMEN Ordering Facility: [facility] Address: [address] [place] [address] Performed By: #### 5 7021-8 #### [facility] CLIA [id number] [address] [place] [address] [place] Hematocrit (Bld) [Volume fraction] 48.3 % Normal 39.0-51.0 [facility] Comment on above: Order Comment: Speci men Type: BLOOD SPECIMEN Ordering Facility: [facility] Address: [address] [place] [address] Performed By: #### 5 7021-8 #### [facility] CLIA [id number] [address] [place] [address] [place] Hemoglobin (Bld) [Mass/Vol] 15.9 g/dL Normal 13.0-17.0 [facility] Comment on above: Order Comment: Speci men Type: BLOOD SPECIMEN Ordering Facility: [facility] Address: [address] [place] [address] Performed By: #### 5 7021-8 #### [facility] CLIA [id number] [address] [place] [address] [place] Immature granulocytes (Bld) [#/Vol] 10*3/uL Normal <0.10 [facility] Comment on above: Order Comment: Speci men Type: BLOOD SPECIMEN Ordering Facility: [facility] Address: [address] [place] [address] Performed By: #### 5 7021-8 #### [facility] CLIA [id number] [address] STATES [place] Immature granulocytes/100 WBC (Bld) 0.2 % Normal [facility] Comment on above: Order Comment: Speci men Type: BLOOD SPECIMEN Ordering Facility: [facility] Address: [address] [place] [address] Performed By: #### 5 7021-8 #### [facility] CLIA [id number] [address] [place] [address] [place] Lymphocytes (Bld) [#/Vol] 1.84 10*3/uL Normal 1.00-4.00 [facility] Comment on above: Order Comment: Speci men Type: BLOOD SPECIMEN Ordering Facility: [facility] Address: [address] [place] [address] Performed By: #### 5 7021-8 #### [facility] CLIA [id number] [address] Lymphocytes/100 WBC (Bld) 33.1 % Normal [facility] Comment on above: Order Comment: Speci men Type: BLOOD SPECIMEN Ordering Facility: [facility] Address: [address] [place] [address] Performed By: #### 5 7021-8 #### [facility] CLIA [id number] [address] [place] [address] [place] MCH (RBC) [Entitic mass] 31.7 pg Normal 26.0-34.0 [facility] Comment on above: Order Comment: Speci men Type: BLOOD SPECIMEN Ordering Facility: [facility] Address: [address] [place] [address] Performed By: #### 5 7021-8 #### [facility] CLIA [id number] [address] [place] [address] [place] MCHC (RBC) [Mass/Vol] 32.9 g/dL Normal 30.5-36.0 [facility] Comment on above: Order Comment: Speci men Type: BLOOD SPECIMEN Ordering Facility: [facility] Address: [address] [place] [address] Performed By: #### 5 7021-8 #### [facility] CLIA [id number] [address] [place] [address] [place] MCV (RBC) [Entitic vol] 96.2 fL Normal 80.0-100.0 [facility] Comment on above: Order Comment: Speci men Type: BLOOD SPECIMEN Ordering Facility: [facility] Address: [address] [place] [address] Performed By: #### 5 7021-8 #### [facility] CLIA [id number] [address] [place] [address] [place] Monocytes (Bld) [#/Vol] 0.54 10*3/uL Normal <0.87 [facility] Comment on above: Order Comment: Speci men Type: BLOOD SPECIMEN Ordering Facility: [facility] Address: [address] [place] [address] Performed By: #### 5 7021-8 #### [facility] CLIA [id number] [address] [place] [address] [place] Monocytes/100 WBC (Bld) 9.7 % Normal [facility] Comment on above: Order Comment: Speci men Type: BLOOD SPECIMEN Ordering Facility: [facility] Address: [address] [place] [address] Performed By: #### 5 7021-8 #### [facility] CLIA [id number] [address] [place] [address] [place] Neutrophils (Bld) [#/Vol] 2.78 10*3/uL Normal 1.45-7.50 [facility] Comment on above: Order Comment: Speci men Type: BLOOD SPECIMEN Ordering Facility: [facility] Address: [address] [place] [address] Performed By: #### 5 7021-8 #### [facility] CLIA [id number] [address] [place] [address] [place] Neutrophils/100 WBC (Bld) 50.0 % Normal [facility] Comment on above: Order Comment: Speci men Type: BLOOD SPECIMEN Ordering Facility: [facility] Address: [address] [place] [address] Performed By: #### 5 7021-8 #### [facility] CLIA [id number] [address] [place] [address] [place] Nucleated RBC (Bld) [#/Vol] Normal [facility] Comment on above: Order Comment: Speci men Type: BLOOD SPECIMEN Ordering Facility: [facility] Address: [address] [place] [address] Performed By: #### 5 7021-8 #### [facility] CLIA [id number] [address] [place] [address] [place] Nucleated RBC/100 WBC (Bld) [Ratio] Normal [facility] Comment on above: Order Comment: Speci men Type: BLOOD SPECIMEN Ordering Facility: [facility] Address: [address] [place] [address] Performed By: #### 5 7021-8 #### [facility] CLIA [id number] [address] [place] [address] [place] Platelet mean volume (Bld) [Entitic vol] 10.2 fL Normal 9.0-12.7 [facility] Comment on above: Order Comment: Speci men Type: BLOOD SPECIMEN Ordering Facility: [facility] Address: [address] [place] [address] Performed By: #### 5 7021-8 #### [facility] CLIA [id number] [address] [place] [address] [place] Platelets (Bld) [#/Vol] 230 10*3/uL Normal 150-400 [facility] Comment on above: Order Comment: Speci men Type: BLOOD SPECIMEN Ordering Facility: [facility] Address: [address] [place] [address] Performed By: #### 5 7021-8 #### [facility] CLIA [id number] [address] [place] [address] [place] RBC (Bld) [#/Vol] 5.02 10*6/uL Normal 4.20-6.00 [facility] Comment on above: Order Comment: Speci men Type: BLOOD SPECIMEN Ordering Facility: [facility] Address: [address] [place] [address] Performed By: #### 5 7021-8 #### [facility] CLIA [id number] [address] [place] [address] [place] WBC (Bld) [#/Vol] 5.56 10*3/uL Normal 3.70-11.00 [facility] Comment on above: Order Comment: Speci men Type: BLOOD SPECIMEN Ordering Facility: [facility] Address: [address] [place] [address] Performed By: #### 5 7021-8 #### [facility] CLIA [id number] [address] [place] PSA/PROSTATE SPECIFIC ANTIGE N SCREENINGon 12-27-2024 Prostate specific Ag [Mass/Vol] 0.69 ng/mL Normal <2.60 [facility] Comment on above: Order Comment: Speci men Type: BLOOD SPECIMEN Ordering Facility: [facility] Address: [address] [place] [address] Result Comment: Tota l PSA test methodology used is the Electrochemiluminescence Immunoassay by [employer]. Total PSA values by differing methodologies cannot be interchanged. Performed By: #### P SAS1 #### [facility] CLIA [id number] [address] STATES OF [facility] TESTOSTERONE, FREE AND TOTAL , BY EQUILIBRIUM ULTRAFILTRATION MASS SPECTROMETRYon 12-27-2024 Testosterone [Mass/Vol] 585.1 ng/dL Normal 264. 0-916. 0 [facility] Comment on above: Order Comment: Speci men Type: BLOOD SPECIMEN Ordering Facility: [facility] Address: [address] [place] [address] Result Comment: This [facility] LC/MS-MS method is currently certified by the CDC Hormone Standardization Program (HoSt). Adult male reference interval is based on a population of healthy nonobese males (BMI <30) between 19 and 39 years old. Joyce, et.al. JCEM 2017,102;0916-2171. PMID: 41960100. Performed By: #### T FTEST #### [facility] CLIA [id number] [address] [facility] [address] Testosterone Free [Mass/Vol] 25.16 ng/dL High 5.00-21.00 [facility] Comment on above: Order Comment: Speci men Type: BLOOD SPECIMEN Ordering Facility: [facility] Address: [address] [place] [address] Performed By: #### T FTEST #### [facility] CLIA [id number] [address] [place] [address] Testosterone Free/Testosterone.total [Mass fraction] 4.30 % High 1.50-4.20 [facility] Comment on above: Order Comment: Speci men Type: BLOOD SPECIMEN Ordering Facility: [facility] Address: [address] [place] [address] Performed By: #### T FTEST #### [facility] CLIA [id number] [address] [place] [address] EBV Acute Prof IgG / IgMon 0 12-29-2023 EB Ab VCA, IgG > 600.0 High 0.0-17.9 [facility] Comment on above: Result Comment: Nega tive <18.0 Equivocal 18.0 - 21.9 Positive >21.9 Performed By: #### L 506.1000, L3100.5850, L501.9520, L503.0105 #### [facility] [address] [place], [address] EBV Ab VCA, IgM < 36.0 Normal 0.0-35.9 [facility] Comment on above: Result Comment: Nega tive <36.0 Equivocal 36.0 - 43.9 Positive >43.9 Performed By: #### L 506.1000, L3100.5850, L501.9520, L503.0105 #### [facility] [address] [place], [address] EBV NuAg Ab,IgG > 600.0 High 0.0-17.9 [facility] Comment on above: Result Comment: Nega tive <18.0 Equivocal 18.0 - 21.9 Positive >21.9 Performed By: #### L 506.1000, L3100.5850, L501.9520, L503.0105 #### [facility] [address] [place], [address] INTERPRETATION Comment Normal . [facility] Comment on above: Result Comment: EBV Interpretation Chart Sheldon: Antibody Present + Antibody Absent - Interpretation VCA-IgM VCA-IgG EBNA-IgG No previous infection/ - - - Susceptible Primary infection (new + + - or recent) Past Infection +or- + + See comment below* + - - *Results indicate infection with EBV at some time however cannot predict the timing of the infection since antibodies to EBNA usually develop after primary infection or, alternatively, approximately 5-10% of patients with EBV never develop antibodies to EBNA. Performed at: [address] [id number] Facility Maintenance Worker: Arik Brizuela PhD, Phone: [phone] Performed By: #### L 506.1000, L3100.5850, L501.9520, L503.0105 #### [facility] [address] [place], [address] Thyroid Stim Hormone (TSH)on 12-28-2023 TSH 0.97 uIU/mL Normal 0.358-3.74 [facility] Comment on above: Performed By: #### L 506.1000, L3100.5850, L501.9520, L503.0105 #### [facility] [address] [place], [address] Vitamin B12on 12-27-2023 Cobalamin (Vitamin B12) [Mass/Vol] 452 pg/mL Normal 211-911 [facility] Comment on above: Performed By: #### L 506.1000, L3100.5850, L501.9520, L503.0105 #### [facility] [address] [facility] [place], [address] Vitamin D,25 Hydroxyon 12-27 Vitamin D 25-OH 24.6 ng/mL Normal [facility] Comment on above: Result Comment: [place] min D 25(OH) Status Range Deficiency <20 ng/mL (50nmol/L) Insufficiency 20 - 30 ng/mL (50 - 75 nmol/L) Sufficiency 30 - 100 ng/mL (75 - 250 nmol/L) Toxicity >100 ng/mL (>250 nmol/L) Performed By: #### L 506.1000, L3100.5850, L501.9520, L503.0105 #### [facility] [address] [place], [address] Basic Metabolic Profile (BMP )on 12-25-2023 BUN/CRE 9.3 RATIO Low 10-20 [facility] Comment on above: Order Comment: 'TROP ' Serial specimen #1, #2 or #3: 1 Performed By: #### L 100.0100, L500.2500, L501.4020 #### [facility] [address] [place], [address] CA,Total 9.4 mg/dL Normal 8.5-10.1 [facility] Comment on above: Order Comment: 'TROP ' Serial specimen #1, #2 or #3: 1 Performed By: #### L 100.0100, L500.2500, L501.4020 #### [facility] [address] [place], [address] Chloride [Moles/Vol] 103 mmol/L Normal 98-107 [facility] Comment on above: Order Comment: 'TROP ' Serial specimen #1, #2 or #3: 1 Performed By: #### L 100.0100, L500.2500, L501.4020 #### [facility] [address] [place], [address] CO2 [Moles/Vol] 28.0 mmol/L Normal 21.0-32.0 [facility] Comment on above: Order Comment: 'TROP ' Serial specimen #1, #2 or #3: 1 Performed By: #### L 100.0100, L500.2500, L501.4020 #### [facility] [address] [place], [address] Creatinine [Mass/Vol] 0.76 mg/dL Normal 0.70-1.30 [facility] Comment on above: Order Comment: 'TROP ' Serial specimen #1, #2 or #3: 1 Result Comment: The validity of the calculated GFR GFRAA in patients over 70 years has not been determined. Clinical correlation is essential. Performed By: #### L 100.0100, L500.2500, L501.4020 #### [facility] [address] [place], [address] ECRCL 169.57 ml/min Normal [facility] Comment on above: Order Comment: 'TROP ' Serial specimen #1, #2 or #3: 1 Performed By: #### L 100.0100, L500.2500, L501.4020 #### [facility] [address] [place], [address] EST GFR - AA 152 mL/min Normal >60 [facility] Comment on above: Order Comment: 'TROP ' Serial specimen #1, #2 or #3: 1 Result Comment: Afri can Erit[place]an GFR Calc Performed By: #### L 100.0100, L500.2500, L501.4020 #### [facility] [address] [place], [address] GAP 5 Normal 5-15 [facility] Comment on above: Order Comment: 'TROP ' Serial specimen #1, #2 or #3: 1 Performed By: #### L 100.0100, L500.2500, L501.4020 #### [facility] [address] [place], [address] GFR/1.73 sq M.predicted among non-blacks MDRD (S/P/Bld) [Vol rate/Area] 126 mL/min/{1.73_m2} Normal >60 [facility] Comment on above: Order Comment: 'TROP ' Serial specimen #1, #2 or #3: 1 Result Comment: Non- GFR Calc Performed By: #### L 100.0100, L500.2500, L501.4020 #### [facility] [address] [place], [address] Glucose [Mass/Vol] 95 mg/dL Normal 74-106 [facility] Comment on above: Order Comment: 'TROP ' Serial specimen #1, #2 or #3: 1 Performed By: #### L 100.0100, L500.2500, L501.4020 #### [facility] [address] [place], [address] Potassium [Moles/Vol] 3.9 mmol/L Normal 3.5-5.1 [facility] Comment on above: Order Comment: 'TROP ' Serial specimen #1, #2 or #3: 1 Performed By: #### L 100.0100, L500.2500, L501.4020 #### [facility] [address] [place], [address] Sodium [Moles/Vol] 136 mmol/L Normal 136-145 [facility] Comment on above: Order Comment: 'TROP ' Serial specimen #1, #2 or #3: 1 Performed By: #### L 100.0100, L500.2500, L501.4020 #### [facility] [address] [place], [address] Urea nitrogen [Mass/Vol] 7 mg/dL Normal 7-18 [facility] Comment on above: Order Comment: 'TROP ' Serial specimen #1, #2 or #3: 1 Performed By: #### L 100.0100, L500.2500, L501.4020 #### [facility] [address] [place], [address] CBC W/Diff, Automatedon 11-28 Absolute Lymph 1.60 X10 3/uL Normal 0.83-4.51 [facility] Comment on above: Performed By: #### L 100.0100, L500.2500, L501.4020 #### [facility] [address] [place], [address] Absolute Neut 5.1 X10 3/uL Normal 2.0-7.7 [facility] Comment on above: Performed By: #### L 100.0100, L500.2500, L501.4020 #### [facility] [address] [place], [address] Basophils/100 WBC (Bld) 0.9 % Normal 0-1 [facility] Comment on above: Performed By: #### L 100.0100, L500.2500, L501.4020 #### [facility] [address] [place], [address] Eosinophils/100 WBC (Bld) 3.0 % Normal 0-5 [facility] Comment on above: Performed By: #### L 100.0100, L500.2500, L501.4020 #### [facility] [address] [place], [address] Erythrocyte distribution width (RBC) [Ratio] 11.8 % Normal 11.6-14.6 [facility] Comment on above: Performed By: #### L 100.0100, L500.2500, L501.4020 #### [facility] [address] [place], [address] Hematocrit (Bld) [Volume fraction] 46.3 % Normal 40-54 [facility] Comment on above: Performed By: #### L 100.0100, L500.2500, L501.4020 #### [facility] [address] [place], [address] Hemoglobin (Bld) [Mass/Vol] 15.5 g/dL Normal 13.0-16.5 [facility] Comment on above: Performed By: #### L 100.0100, L500.2500, L501.4020 #### [facility] [address] [place], [address] IG% 0.300 Normal 0.0-0.9 [facility] Comment on above: Result Comment: IG% - Immature Granulocytes (promyelocytes, myelocytes and metamyelocytes) > 1% indicates that a LEFT SHIFT is Present. Performed By: #### L 100.0100, L500.2500, L501.4020 #### [facility] [address] [place], [address] Lymphocytes/100 WBC (Bld) 20.6 % Normal 19-41 [facility] Comment on above: Performed By: #### L 100.0100, L500.2500, L501.4020 #### [facility] [address] [place], [address] MCH (RBC) [Entitic mass] 32.0 pg Normal 27.0-32.0 [facility] Comment on above: Performed By: #### L 100.0100, L500.2500, L501.4020 #### [facility] [address] [place], [address] MCHC (RBC) [Mass/Vol] 33.5 g/dL Normal 32-36 [facility] Comment on above: Performed By: #### L 100.0100, L500.2500, L501.4020 #### [facility] [address] [place], [address] MCV (RBC) [Entitic vol] 95.5 fL High 80-94 [facility] Comment on above: Performed By: #### L 100.0100, L500.2500, L501.4020 #### [facility] [address] [place], [address] Monocytes/100 WBC (Bld) 10.4 % High 0-10 [facility] Comment on above: Performed By: #### L 100.0100, L500.2500, L501.4020 #### [facility] [address] [place], [address] Neutrophils/100 WBC (Bld) 64.8 % Normal 47-70 [facility] Comment on above: Performed By: #### L 100.0100, L500.2500, L501.4020 #### [facility] [address] [place], [address] Nucleated RBC (Bld) [#/Vol] 0 10*3/uL Normal 0-5 [facility] Comment on above: Performed By: #### L 100.0100, L500.2500, L501.4020 #### [facility] [address] [place], [address] Platelet mean volume (Bld) [Entitic vol] 10.5 fL Normal 6.2-12.0 [facility] Comment on above: Performed By: #### L 100.0100, L500.2500, L501.4020 #### [facility] [address] [place], [address] Platelets (Bld) [#/Vol] 217 10*3/uL Normal 150-450 [facility] Comment on above: Performed By: #### L 100.0100, L500.2500, L501.4020 #### [facility] [address] [place], [address] RBC (Bld) [#/Vol] 4.85 10*6/uL Normal 4.6-6.2 [facility] Comment on above: Performed By: #### L 100.0100, L500.2500, L501.4020 #### [facility] [address] [place], [address] RDW SD 41.1 fl Normal 35.1-43.9 [facility] Comment on above: Performed By: #### L 100.0100, L500.2500, L501.4020 #### [facility] [address] [place], [address] WBC (Bld) [#/Vol] 7.8 10*3/uL Normal 4.4-11.0 [facility] Comment on above: Performed By: #### L 100.0100, L500.2500, L501.4020 #### [facility] [address] [place], [place], [id number] Chest PA and Lateralon 12-25 Chest PA and Lateral [facility] Imaging Services [address] [place] [address] Chest PA and Lateral MR#: [id number] Acct: [id number] Name: GERRI WALLER Rep #: [id number] : 1990 M 33 From: Clifford vicente MD PCP: Lindsey Garcia NP-C Status: [facility] ER Study: Chest PA and Lateral Date of Exam: 12/25/23 Exam# [id number] Ordering Dr: Andrew Gambino DO [id number] STUDY: X-RAY CHEST REASON FOR EXAM: Male, 33 years old. Chest pain. Body aches like symptoms. TECHNIQUE: PA and lateral views of the chest. COMPARISON: None. FINDINGS: EKG electrodes are seen. The lungs are clear and expanded. Scattered calcified granulomas. There is no demonstrated pleural abnormality. Normal size heart. Normal mediastinum and jesenia. Normal visualized pulmonary arteries. Normal visualized aortic arch and descending thoracic aorta. There are mild degenerative changes of the visualized thoracic spine. Normal visualized ribs, clavicles, and shoulders. There is no demonstrated abnormality of the visualized soft tissue structures of the upper abdomen. RAD/Chest PA and Lateral IMPRESSION: No acute abnormality is seen. Electronically Signed: Clifford Barrow MD at 14:37 EST , CC: MARGAUX Garcia; Dr. Andrew Gambino DO Stock Replenisher: Signed Normal [facility] Emergency Department Summary on 12-25-2023 Emergency Department Summary [facility] Medical Records Department [address] [place] [address] Emergency Department Summary 12/25/23 MR#: [id number] Acct: [id number] Name: GERRI WALLER Rep #: [id number] : 1990 33 From: Andrew Gambino DO PCP: MARGAUX Rodrigues Status:DEP ER Location: ED HPI History of Present Illness Chief Complaint: General Illness Informant: patient Onset/Context/Timing Onset: Yesterday Context: Gradual Onset Timing: Continuous Quality: Sharp Location: Anterior chest Worsened by: Nothing Relieved by: Nothing Narrative Narrative: Patient presents with chest pain, shortness of breath, and intermittent confusion that began yesterday. Patient states it has been constant since yesterday. Patient states it is gradually getting worse. Patient describes his pain as sharp. Patient states his pain is diffuse across his chest. Patient states nothing makes it better and nothing makes it worse. Patient admits to some rhinorrhea. Patient also admits to a mild headache. Patient denies any nausea or vomiting. [facility] Medical History Alcohol abuse with withdrawal Major depressive disorder, recurrent severe without psychotic features Nicotine use disorder Panic disorder Home Medications omeprazole 20 mg tablet,delayed release 20 mg PO DAILY 06/15/21 [History Last Taken Unknown] escitalopram oxalate 20 mg tablet (Lexapro) 30 mg (1.5 x 20 mg) .Route .COMPLEX depression 90 days #135 tabs 10/12/23 [Rx Last Taken Unknown] losartan 100 mg tablet 100 mg PO DAILY #90 tabs 10/12/23 [Rx Last Taken Unknown] Allergy/AdvReac Type Severity Reaction Status Date / Time trazodone Allergy no sex Verified 12/25/23 12:53 drive and muscles tense bupropion AdvReac Severe made Verified 12/25/23 12:53 anxiety worse and angry Family History Other Anxiety Surgical History no surgical history no surgical history Social History Smoking Status: Former smoker ROS ROS ED Constitutional Constitutional ED: Denies chills or fever(s) Eyes Eyes: Denies blurry vision or change in vision ENT ENT ED: Reports rhinorrhea; Denies sore throat Cardiovascular Cardiovascular: Denies chest pain or palpitations Respiratory/Chest Respiratory/Chest: Denies cough or dyspnea Gastrointestinal Gastrointestinal: Denies nausea or vomiting Genitourinary Genitourinary ED: Denies dysuria or hematuria Musculoskeletal Musculoskeletal: Reports back pain; Denies neck pain Integumentary Reports rash; Denies abscess Neurologic Neurologic: Reports headache(s); Denies weakness Allergic/Immunologic Allergic/Immunologic ED: Denies mouth swelling or urticaria EXAM Physical Exam Const Vital Signs: 12/25/23 12:51 Temperature 98.6 F Temperature Source Temporal Pulse Rate 74 Respiratory Rate 16 Blood Pressure 168/112 H Blood Pressure Mean 130 Pulse Ox 100 Oxygen Delivery Method Room Air Positive well nourished and well developed General Appearance ED: well developed and NAD HEENT Reports moist mucous membranes Neck supple and no JVD Resp normal respiratory effort and clear to auscultation bilaterally Cardio regular rate and regular rhythm GI non-tender and non-distended Palpation: soft Extremity normal to inspection Neuro oriented x3, CN's II-XII intact bilaterally and no sensory deficits noted Sensorium / Orientation: alert Motor Exam: strength 5/5 throughout Psych mental status grossly normal MDM MDM MDM Narrative Medical decision making narrative: Differential diagnosis includes viral illness, bronchitis, pneumonia, pneumothorax, cardiac dysrhythmia, cardiac ischemia, electrolyte abnormality, dehydration, and anxiety. EKG will be obtained to assess for cardiac dysrhythmia and cardiac ischemia. Chest x-ray will be obtained to assess for pneumonia and pneumothorax. CBC will be obtained to assess for leukocytosis and anemia. Basic metabolic profile will be obtained to assess for electrolyte abnormality and renal function. High-sensitivity troponin will be obtained to assess for cardiac ischemia. Urinalysis will be obtained to assess for urinary tract infection. COVID-19, influenza, and RSV PCR will be obtained to assess for viral infection. Lab Data Attestation: I reviewed the patient's lab results. Lab results narrative: CBC was reviewed and was within normal limits. Basic metabolic profile was reviewed and was within normal limits. High-sensitivity troponin was reviewed and was normal at 11. Urinalysis was reviewed. There is no evidence of urinary tract infection or hematuria. COVID-19 PCR was reviewed and was negativ (more content not included)... Normal [facility] L501.4020on 12-25-2023 TROPONIN-I HS 11 pg/mL Normal 3.0-78.0 [facility] Comment on above: Order Comment: 'TROP ' Serial specimen #1, #2 or #3: 1 Result Comment: Rose cope Note: New Test Units and Gender Specific Reference Ranges. For more information see Policy Stat Procedure [place] High Sensitivity Troponin (TNIH) and attachments. Performed By: #### L 506.1000, L3100.5850, L501.9520, L503.0105 #### [facility] [address] [place], [address] M100.678on 12-25-2023 M100.678 Normal Reference Ran ge = Negative COV + FLU + RSV PCR GeneXpert Instrument, PCR method SARS-CoV-2 (COVID 19) Negative INFLUENZA A Negative INFLUENZA B Negative RSV PCR Negative Normal [facility] Comment on above: Performed By: #### M 100.678 #### [facility] [address] [place], [address] Urinalysis, Completeon 12-25 BACTERIA 0 SEEN Normal None Seen [facility] Comment on above: Order Comment: ADRIEN HOLLANDOR TO SPECIFY Performed By: #### L 400.0001 #### [facility] [address] [place], [address] EPI,SQUAMOUS 0 SEEN Normal 0-5 [facility] Comment on above: Order Comment: ADRIEN HOLLANDOR TO SPECIFY Performed By: #### L 400.0001 #### [facility] [address] [place], [address] Mucus Ql (Urine sed) 0 SEEN Normal [facility] Comment on above: Order Comment: COLLE CTOR TO SPECIFY Performed By: #### L 400.0001 #### [facility] [address] [place], [place], [id number] RBC 0 SEEN Normal 0-5 [facility] Comment on above: Order Comment: COLLE CTOR TO SPECIFY Performed By: #### L 400.0001 #### [facility] [address] [place], [place], [address] WBC 0 SEEN Normal 0-5 [facility] Comment on above: Order Comment: COLLE CTOR TO SPECIFY Performed By: #### L 400.0001 #### [facility] [address] [place], [place], [address] Vital Signs Date Time Vital Sign Value Performing Clinician Leonid rich 05-01-2025 08:31-0400 Diastolic blood pressure 77 mm[Hg] Manuel Sandoval BUSINESS CONTINUITY COORDINATOR - ER TECH Work Phone: [facility] 05-01-2025 08:31-0400 Heart rate 90 /min Manuel Jaime APR N - ER TECH Work Phone: [facility] 05-01-2025 08:31-0400 Systolic blood pressure 124 mm[Hg] Manuel Sandoval BUSINESS CONTINUITY COORDINATOR - ER TECH Work Phone: [facility] 03-27-2025 11:11-0400 Body height 180.3 cm Manuel Sandoval APR N - ER TECH Work Phone: [facility] 03-27-2025 11:11-0400 Body mass index (BMI) [Ratio] 36.26 kg/m2 Manuel Jaime BUSINESS CONTINUITY COORDINATOR - ER TECH Work Phone: [facility] 03-27-2025 11:11-0400 Body weight 117.94 kg Manuel Sandoval APR N - ER TECH Work Phone: [facility] 03-27-2025 11:11-0400 Diastolic blood pressure 76 mm[Hg] Manuel Sandoval BUSINESS CONTINUITY COORDINATOR - ER TECH Work Phone: [facility] 03-27-2025 11:11-0400 Heart rate 88 /min Manuel Sandoval APR N - ER TECH Work Phone: [facility] 03-27-2025 11:11-0400 Systolic blood pressure 133 mm[Hg] Manuel Sandoval BUSINESS CONTINUITY COORDINATOR - ER TECH Work Phone: [facility] 03-24-2025 11:00-0400 Diastolic blood pressure 79 mm[Hg] Layne Ramirez MD Work Phone: [facility] 03-24-2025 11:00-0400 Heart rate 60 /min Layne Ramirez MD Work Phone: [facility] 03-24-2025 11:00-0400 Respiratory rate 16 /min Layne Ramirez MD Work Phone: [facility] 03-24-2025 11:00-0400 SaO2% (BldA) [Mass fraction] 100 % Layne Ramirez MD Work Phone: [facility] 03-24-2025 11:00-0400 Systolic blood pressure 127 mm[Hg] Layne Ramirez MD Work Phone: [facility] 03-24-2025 09:56-0400 Body height 180.3 cm Layne Ramirez MD Work Phone: [facility] 03-24-2025 09:56-0400 Body mass index (BMI) [Ratio] 36.26 kg/m2 Layne Ramirez MD Work Phone: [facility] 03-24-2025 09:56-0400 Body temperature 98.71 [degF] Layne Ramirez MD Work Phone: [facility] 03-24-2025 09:56-0400 Body weight 117.94 kg Layne Ramirez MD Work Phone: [facility] Encounters Encounter Date Encounter Type Care Provider Facility Start: 05-09-2025 End: 05-09-2025 Subsequent hospital visit by physician Manuel Sandoval BUSINESS CONTINUITY COORDINATOR - ER TECH Work Phone: [facility] Comment on above: Ureterolithiasis; Flank pain Start: 05-09-2025 End: 05-09-2025 ambulatory [facility] Start: 05-01-2025 End: 05-01-2025 Office outpatient visit 15 minutes Manuel Rivera CNP Work Phone: [facility] [place] Comment on above: Ureterolithiasis (Pr imary Dx); Flank pain Start: 05-01-2025 End: 05-02-2025 ambulatory [facility] Start: 04-28-2025 End: 04-28-2025 Follow-up encounter Manuel Rivera CNP Work Phone: [facility] [place] Comment on above: XR abdomen 1 view Start: 04-26-2025 End: 04-28-2025 Telephone encounter Manuel Rivera CNP Work Phone: [facility] [place] Comment on above: Med Refill Start: 04-26-2025 End: 04-26-2025 Subsequent hospital visit by physician Manuel Rivera CNP Work Phone: [facility] Comment on above: Ureterolithiasis Start: 04-26-2025 End: 04-26-2025 [facility] Start: 03-28-2025 End: 03-28-2025 Orders Only Manuel Sandoval APRN - BARRIE Work Phone: [facility] [place] Comment on above: Ureterolithiasis (Pr imary Dx) Start: 03-27-2025 End: 03-27-2025 Office outpatient new 45 minutes Manuel Rivera CNP Work Phone: [facility] [place] Comment on above: Ureterolithiasis (Pr imary Dx); Bladder spasms Start: 03-27-2025 End: 03-27-2025 ambulatory [facility] Start: 03-26-2025 End: 03-26-2025 Telephone encounter Jose Alejandro Veliz MD Work Phone: [facility] [place] Comment on above: Appointment (New pat ient referral (ED follow up)) Start: 03-24-2025 End: 03-24-2025 Emergency department patient visit Layne Ramirez MD Work Phone: [facility] ED Comment on above: Ureterolithiasis (Pr imary Dx) Start: 12-27-2024 End: 12-27-2024 ambulatory GERRI Siena SCHULZ Facility:[facility] Start: 12-27-2023 End: 12-27-2023 ambulatory Lindsey Garcia NP Facility:[facility] Start: 12-25-2023 End: 12-25-2023 Emergency department patient visit Andrew Gambino Facility:[facility] Procedures Date Procedure Procedure Detail Performing Clinician Start: 05-09-2025 Us retroperitoneal r eal time w/image complete Manuel Sandoval BUSINESS CONTINUITY COORDINATOR - ER TECH Work Phone: Start: 05-01-2025 Urnls dip stick/tabl et rgnt auto w/o microscopy Manuel Sandoval BUSINESS CONTINUITY COORDINATOR - ER TECH Work Phone: Start: 03-24-2025 Ct abdomen & pelvis w/o contrast material Layne Ramirez MD Work Phone: Start: 03-24-2025 Urinalysis complete panel - Urine Layne Ramirez MD Work Phone: Start: 03-24-2025 Urnls dip stick/tabl et reagent auto microscopy Layne Ramirez MD Work Phone: Start: 03-24-2025 Comprehensive metabo lic panel Layne Ramirez MD Work Phone: Plan of Treatment Date Care Activity Detail Author Start: 2064 RSV Immunization for Adults (1 - 1-dose 75+ series) RSV Immunization for Adults (1 - 1-dose 75+ series) [facility] Start: 2039 Zoster Vaccines (1 of 2) Zoster Vacc mckenna (1 of 2) [facility] Start: 07-28-2025 Influenza vaccination Influenz a Vaccine (Season Ended) [facility] Start: 05-29-2025 End: 05-29-2025 Patient encounter procedure 05/29/2025 8:30 AM EDT Office Visit [facility] [address] [place] [phone] Manuel Sandoval, BUSINESS CONTINUITY COORDINATOR - ER TECH [address] [place] [address] [facility] Start: 05-02-2025 Subsequent hospital visit by physician 05/02/2025 4:30 PM EDT Hospital Encounter [facility] [address] [place] [address] Manuel Sandoval, BUSINESS CONTINUITY COORDINATOR - ER TECH [address] [place] [id number] [facility] Start: 05-01-2025 End: 05-01-2026 US Retroperitoneum US retroperitoneum Imaging Routine Ureterolithiasis Flank pain Expected: 05/01/2025, Expires: 05/01/2026 [facility] Work Phone: Comment on above: Expected: 05/01/2025 , Expires: 05/01/2026 Start: 05-01-2025 End: 05-01-2025 Patient encounter procedure 05/01/2025 8:30 AM EDT Office Visit [facility] [address] [place] [phone] Manuel Sandoval, BUSINESS CONTINUITY COORDINATOR - ER TECH [address] [place] [address] [facility] Start: 04-27-2025 End: 03-27-2026 XR Abdomen Single view XR abdomen 1 view Imaging Routine Ureterolithiasis Expected: 04/27/2025, Expires: 03/27/2026 [facility] Work Phone: Comment on above: Expected: 04/27/2025 , Expires: 03/27/2026 Start: 03-27-2025 End: 03-27-2025 Patient encounter procedure 03/27/2025 11:00 AM EDT Office Visit [facility] [place] [address] [place] [phone] Manuel Sandoval, BUSINESS CONTINUITY COORDINATOR - ER TECH [address] [place] [address] [facility] [place] Start: 07-28-2024 COVID-19 Vaccine ( season) COVID-19 Vaccine ( season) [facility] Start: 2008 DTaP/Tdap/Td Vaccine s (1 - Tdap) DTaP/Tdap/Td Vaccines (1 - Tdap) [facility] Start: 2008 Hepatitis B Vaccines (1 of 3 - 19+ 3-dose series) Hepatitis B Vaccines (1 of 3 - 19+ 3-dose series) [facility] Start: 2008 Pneumococcal Vaccine : Pediatrics (0 to 5 Years) and At-Risk Patients (6 to 49 Years) (1 of 2 - PCV) Pneumococcal Vaccine: Pediatrics (0 to 5 Years) and At-Risk Patients (6 to 49 Years) (1 of 2 - PCV) [facility] Start: 2007 Hepatitis C screening Hepatitis C Sc reening [facility] Start: 2002 Varicella vaccination Varicell a Vaccines (1 of 2 - 13+ 2-dose series) [facility] Start: 2001 Depression Monitoring Depression Mon itoring [facility] Start: 1990 MMR Vaccines (1 of 1 - Standard series) MMR Vaccines (1 of 1 - Standard series) [facility] Start: 1989 HIV screening HIV Screening [facility] Start: 1989 Lipid panel Lipid Panel [facility] End: 04-26-2025 XR Abdomen Single view [facility] Work Phone: Comment on above: Once for 1 Occurrenc es starting 04/26/2025 until 04/26/2025 Payers Date Payer Category Payer Self-pay 2023 Unknown [id number] 2021 [employer] Blue [employer] Managed Care - [employer] BLUE CROSS [id number] 2021 Unknown [id number] Unknown [id number] Unknown [id number] Social History Date Type Detail Facility Start: 03-24-2025 Tobacco smoking status VAIS Ex-smoke r [facility] History of tobacco use Current smoker [facility] History of tobacco use Cigarette Smoker [facility] Start: 03-24-2025 Alcoholic beverage intake Not Asked [facility] Start: 03-24-2025 History of Social function [facility] Start: 03-24-2025 Tobacco use panel [facility] Start: 1990 Sex assigned at Not on file [facility] Start: 03-24-2025 Sex Male (finding) [facility] Clinical Notes 03-24-2025 to 05-01-2025 Telephone Encounter - La Pandey MA - 05/01/2025 9:19 AM EDTTelephone Encounter - La Pandey MA - 05/01/2025 9:19 AM EDTTelephone Encounter - Judy Valentino - 04/26/2025 9:06 AM EDT Note Date & Type Note Facility 05-01-2025 Telephone encounter Note Patient was gave message verbatim per Pt verbalized understanding and stated he has already been prescribed something else. [facility] 05-01-2025 Miscellaneous Notes Patient was gave message verbatim per Pt verbalized understanding and stated he has already been prescribed something else. Ordering provider: Jaime Date of last office visit: 03/27/25 Date of next office visit: 05/01/25 Updated/Validated preferred pharmacy: Yes -[facility] [address] in [place] Patient instructed to contact the pharmacy prior to picking up the medication: Yes (1) Medication name: oxyCODONE-acetaminophen (Percocet) Medication dosage: 5-325 mg (Miligrams Monthly quantity needed: 8 How many day supply requestin Days Medication route: oral (PO) Medication administration time(s): Take 1 tablet by mouth every 6 hours as needed for severe pain (7-10) for up to 5 days. If taking medication PRN, reason for taking medication: Severe Pain If this is a controlled substance do you receive this or any other controlled medication from any other doctor or facility: No Date of last refill (see medication tab): 03/27/25 (2) Medication name: ibuprofen Medication dosage: 800 mg (Miligrams Monthly quantity needed: 120 How many day supply requestin days Medication route: oral (PO) Medication administration time(s): Take 1 tablet (800 mg) by mouth every 6 hours as needed for moderate pain (4-6). If taking medication PRN, reason for taking medication: Moderate Pain If this is a controlled substance do you receive this or any other controlled medication from any other doctor or facility: No Date of last refill (see medication tab): 03/28/25 documented in this encounter [facility] 05-01-2025 History of Presen t illness Narrative . Urology Office Visit [facility] [address], [address] [facility] [address] Visit type: Established Patient Reason for Visit: Other (4 week follow up, kidney stones/PVR 73ml/Left side and groin pain, 06/05, constant that is described as dull and at times sharp/Dysuria, stream variability with dribbling, unsure if emptying bladder fully ) Assessment and Plan Diagnoses and all orders for this visit: Ureterolithiasis - AMB POC URINALYSIS DIP STICK AUTO W/O MICRO - ketorolac (Toradol) 10 MG tablet; Take 1 tablet (10 mg) by mouth 3 times daily (with meals) for 5 days. - US retroperitoneum; Future Flank pain - US retroperitoneum; Future Follow up in 4 weeks (on 05/29/2025), or if symptoms worsen or fail to improve, for kidney stone. Elda Guadarrama is a 34-year-old male here today for 4-week follow-up regarding kidney stones. Last OV was 03/27/2025 for follow-up after being seen in the ED for complaints of flank pain. CT in the ED showed a 4 mm calculus in the distal left ureter. Daily and Zofran as needed. Patient was also given oxycodone in the ED as well as a refill of his visit with me. 04/26/2025 KUB showed no appreciable renal or ureteral calculus. I did review the imaging as well and was not able to see 1 kidney stones. Is having left flank pain and now has pain in the penis that is constant and worse at times with urinating. Denies hematuria Denies fever/chills. Denies burning with urination. Denies nausea. Assessment/Plan: - Continue flomax/oxybutynin. - Sending Toradol to help with pain. Stop OTC NSAIDs. - Will get RYDER to check for hydro. - Strain urine and bring stone in for analysis if passes - follow up in 4 weeks. Review of Systems Allergies[1] Current Medications[2] Medical History[3] Social History[4] Surgical History[5] Surgical History[6] Family History[7] Objective BP 124/77 (BP Location: Left arm, Patient Position: Sitting, BP Cuff Size: Adult long) Pulse 90 Physical Exam Constitutional: Appearance: Normal appearance. Neurological: Mental Status: He is alert. Psychiatric: Mood and Affect: Mood normal. Behavior: Behavior normal. Thought Content: Thought content normal. Data Reviewed POCT: Labs: Imaging/Testing: Chart Clean Up: There are no discontinued medications. JOIE Hartmann CNP 05/01/2025 8:59 AM [1] No Known Allergies [2] Current Outpatient Medications: ketorolac (Toradol) 10 MG tablet, Take 1 tablet (10 mg) by mouth 3 times daily (with meals) for 5 days., Disp: 15 tablet, Rfl: 0 OMEPRAZOLE PO, Take by mouth., Disp: , Rfl: oxybutynin XL (Ditropan XL) 10 MG 24 hr tablet, Take 1 tablet (10 mg) by mouth daily. Do not crush, chew, or split., Disp: 30 tablet, Rfl: 11 [3] Past Medical History: Diagnosis Date GERD (gastroesophageal reflux disease) Hypertension [4] Social History Socioeconomic History Marital status: Single Tobacco Use Smoking status: Former Types: Cigarettes Vaping Use Vaping status: Every Day Substances: Nicotine Substance and Sexual Activity Drug use: Not Currently [5] No past surgical history on file. [6] No past surgical history on file. [7] No family history on file. documented in this encounter [facility] 04-29-2025 Telephone encounter Note Patient called back in stating his pharmacy has not received a script for his pain medication. Message released to patient as written. Tricia Lentz RN Registered Nurse Signed Yesterday I advised for the patient to take the flomax and oxybutynin he still has and any OTC tylenol or ibuprofen in the meantime. Patient's further questions if applicable: Patient is requesting a refill. Were all questions from office addressed or relayed to the patient from encounter: Yes [facility] 04-29-2025 Miscellaneous Notes Patient called back in stating his pharmacy has not received a script for his pain medication. Message released to patient as written. Tricia Lentz RN Registered Nurse Signed Yesterday I advised for the patient to take the flomax and oxybutynin he still has and any OTC tylenol or ibuprofen in the meantime. Patient's further questions if applicable: Patient is requesting a refill. Were all questions from office addressed or relayed to the patient from encounter: Yes Call placed to the patient and advised of manuel's message verbatim. The patient states he has not seen any stones pass and is still having the left flank pain that radiates around his side, but he is now having this pain on the other (right) side additionally. The patient states his pain is a 7-8/10 without medication and a 4-5/10 when he takes medication. He would like to know if more pain medication can be sent in for him since his pharmacy does not have anything on file. He would like the 800 MG ibuprofen and oxycodone if possible. I advised for the patient to take the flomax and oxybutynin he still has and any OTC tylenol or ibuprofen in the meantime. Patient voiced understanding. Please advise if the patient can have his pain medications refilled and any other advice for the pain since his KUB was negative. ----- Message from JOIE Hudson CNP sent at 04/28/2025 1:01 PM EDT ----- Please let patient know that his abdominal x-ray did not show any renal or ureteral stones. ----- Message ----- From: Interface, Radiology Results In Sent: 04/28/2025 4:21 AM EDT To: JOIE Hartmann CNP documented in this encounter [facility] 04-28-2025 Telephone encounter Note Call placed to the patient and advised of manuel'bertrand message verbatim. The patient states he has not seen any stones pass and is still having the left flank pain that radiates around his side, but he is now having this pain on the other (right) side additionally. The patient states his pain is a 7-8/10 without medication and a 4-5/10 when he takes medication. He would like to know if more pain medication can be sent in for him since his pharmacy does not have anything on file. He would like the 800 MG ibuprofen and oxycodone if possible. I advised for the patient to take the flomax and oxybutynin he still has and any OTC tylenol or ibuprofen in the meantime. Patient voiced understanding. Please advise if the patient can have his pain medications refilled and any other advice for the pain since his KUB was negative. [facility] 04-28-2025 Miscellaneous Notes Call placed to the patient and advised of manuel's message verbatim. The patient states he has not seen any stones pass and is still having the left flank pain that radiates around his side, but he is now having this pain on the other (right) side additionally. The patient states his pain is a 7-8/10 without medication and a 4-5/10 when he takes medication. He would like to know if more pain medication can be sent in for him since his pharmacy does not have anything on file. He would like the 800 MG ibuprofen and oxycodone if possible. I advised for the patient to take the flomax and oxybutynin he still has and any OTC tylenol or ibuprofen in the meantime. Patient voiced understanding. Please advise if the patient can have his pain medications refilled and any other advice for the pain since his KUB was negative. ----- Message from JOIE Hudson CNP sent at 04/28/2025 1:01 PM EDT ----- Please let patient know that his abdominal x-ray did not show any renal or ureteral stones. ----- Message ----- From: Tiffanie, Radiology Results In Sent: 04/28/2025 4:21 AM EDT To: JOIE Hartmann CNP documented in this encounter [facility] 04-28-2025 Telephone encounter Note ----- Message from JOIE Hudson CNP sent at 04/28/2025 1:01 PM EDT ----- Please let patient know that his abdominal x-ray did not show any renal or ureteral stones. ----- Message ----- From: Interface, Radiology Results In Sent: 04/28/2025 4:21 AM EDT To: JOIE Hartmann CNP [facility] 04-26-2025 Telephone encounter Note Ordering provider: Jaime Date of last office visit: 03/27/25 Date of next office visit: 05/01/25 Updated/Validated preferred pharmacy: Yes -[facility] Patient instructed to contact the pharmacy prior to picking up the medication: Yes (1) Medication name: oxyCODONE-acetaminophen (Percocet) Medication dosage: 5-325 mg (Miligrams Monthly quantity needed: 8 How many day supply requestin Days Medication route: oral (PO) Medication administration time(s): Take 1 tablet by mouth every 6 hours as needed for severe pain (7-10) for up to 5 days. If taking medication PRN, reason for taking medication: Severe Pain If this is a controlled substance do you receive this or any other controlled medication from any other doctor or facility: No Date of last refill (see medication tab): 03/27/25 (2) Medication name: ibuprofen Medication dosage: 800 mg (Miligrams Monthly quantity needed: 120 How many day supply requestin days Medication route: oral (PO) Medication administration time(s): Take 1 tablet (800 mg) by mouth every 6 hours as needed for moderate pain (4-6). If taking medication PRN, reason for taking medication: Moderate Pain If this is a controlled substance do you receive this or any other controlled medication from any other doctor or facility: No Date of last refill (see medication tab): 03/28/25 [facility] 03-27-2025 History of Presen t illness Narrative Images from the original note were not included. Manuel Sandoval, JOIE - ER TECH 03/27/2025 at 12:29 PM Urology Office Visit PATIENT NAME: Gerri Waller DATE OF : 1990 TODAY'S DATE: 03/27/2025 Chief Complaint: Chief Complaint Patient presents with Urolithiasis Pain in lower back, bilaterally,constant, pain radiates around to left lower abdomen and down both legs, pain is 5/10 at this time, Urination has slowed down and become more frequent Denies fever, chills, nausea, vomiting or blood seen in urine History of Present Illness: Mr. Waller is a 34 y.o. male who presents with nephrolithiasis Symptoms started over the past weekend (about 5 days ago). Was seen in the ED on 03/24/25 for complaints of left flank pain. Flank Pain: Left flank. 6/10 Gross hematuria: Denies Dysuria: yes Urgency/frequency: yes Nausea / poor oral intake: not currently but does have some zofran to take Fevers or chills at home: denies Passage of stone: no. Denies personal history of kidney stones. Does have family history of kidney stones. Prior stone work up: CT showed calculus in the distal left ureter measuring approximately 4 m. Assessment/Plan: Continue flomax daily and zofran as needed. Will add oxybutynin for spasms. May take ibuprofen every 6-8 hours prn for pain. A 1x refill of oxycodone was sent. Encouraged pt to try to take ibuprofen as much as possible in lieu of the oxycodone. Discussed increasing water intake. Information provided regarding dietary modifications for stone prevention. Follow up in 4 weeks with KUB prior. Discussed returning to ED if develops fever, worsening pain, hematuria, N/V, or inability to urinate. Review of Systems Past Medical History: Past Medical History: Diagnosis Date GERD (gastroesophageal reflux disease) Hypertension Past Surgical History: No past surgical history on file. Vitals: BP 133/76 Pulse 88 Ht 5' 11 (1.803 m) Wt 260 lb (118 kg) BMI 36.26 kg/m Physical Exam Constitutional: Appearance: Normal appearance. Neurological: Mental Status: He is alert. Psychiatric: Mood and Affect: Mood normal. Behavior: Behavior normal. Thought Content: Thought content normal. Data: @LASTPROCPOC@ Radiology Review: CT abdomen pelvis wo IV contrast Narrative: Patient Name: GERRI WALLER : 1990 Exam Date/Time: 03/24/2025 10:25 Procedure: CT ABDOMEN PELVIS WO IV CONTRAST Ordering Provider: RAMIREZ MARK Reason For Exam: FLANK PAIN EXAMINATION: CT ABDOMEN PELVIS WO IV CONTRAST CLINICAL HISTORY: FLANK PAIN. Left flank pain COMPARISON: None TECHNIQUE: CT of the abdomen and pelvis without contrast. Dose reduction was employed with automated exposure control. FINDINGS: Included images of the lower thorax: No focal lung consolidation or pleural effusion. Hepatobiliary: Unremarkable liver without biliary dilation evident. Pancreas: Unremarkable Spleen: Unremarkable Adrenal Glands: Unremarkable Kidneys and ureters: Calculus is noted in the distal left ureter measuring approximately 4 mm. Abdominal vasculature: Unremarkable GI tract: No evidence of obstruction. The appendix is normal. Peritoneum and retroperitoneum: No free fluid or free air is noted. Lymph Nodes: No abdominal lymphadenopathy is evident. Pelvis: Unremarkable Visualized musculoskeletal structures: No acute fracture or destructive osseous lesion is identified. Impression: 1. Calculus in the distal left ureter measuring approximately 4 mm Report Dictated on Electronically Signed By: Gerri Egan MD Electronically Signed Date/Time: 03/24/2025 10:49 AM EDT Procedure: Impression/Plan Gerri was seen today for urolithiasis. Diagnoses and all orders for this visit: Ureterolithiasis (Primary) - [facility] - tamsulosin (Flomax) 0.4 MG 24 hr capsule; Take 1 capsule (0.4 mg) by mouth daily. - XR abdomen 1 view; Future - oxyCODONE-acetaminophen (Percocet) 5-325 MG tablet; Take 1 tablet by mouth every 6 hours as needed for severe pain (7-10) for up to 5 days. - ibuprofen 800 MG tablet; Take 1 tablet (800 mg) by mouth every 6 hours as needed for moderate pain (4-6). Take one tab every 8 hours x3 days, THEN, take one take every 8 hours as needed for pain. Bladder spasms - oxybutynin XL (Ditropan XL) 10 MG 24 hr tablet; Take 1 tablet (10 mg) by mouth daily. Do not crush, chew, or split. - Patient presents today for follow up of nephrolithiasis. - Since last visit denies experiencing any symptom/sign of calculus. - Reviewed most recent KUB with patient. - Advised to increase oral hydration and follow appropriate stone prevention diet. Hand out provided. - Advised to report to the nearest emergency department should symptoms arise including uncontrollable pain, fever +/- chills, inability to void, intractable nausea and/or vomiting. The patient verbalizes understanding. - Follow up in 1 year with KUB prior. Follow Up Follow up in about 4 weeks (around 04/24/2025) for kidney stones. --Manuel Sandoval APRN, CNP on 03/27/2025 at 12:29 PM An electronic signature was used to authenticate this note. documented in this encounter [facility] 03-26-2025 Telephone encounter Note Returned the patient call. Scheduled 03/27/25 [place] 11:00 AM with TAMMIE Manuel. *ER follow up Ureterolithiasis * [facility] 03-26-2025 Miscellaneous Notes Returned the patient call. Scheduled 03/27/25 [place] 11:00 AM with TAMMIE Manuel. *ER follow up Ureterolithiasis * Name of caller: Gerri Contact phone number: [phone] Relationship to Patient: patient Provider: Dr. Veliz Practice: [facility] [place] Urology Chief Complaint/Reason for Call: Pt is returning a call to schedule a ER follow up for Ureterolithiasis. Please review. Best time of day caller can be reached: any Patient advised that office/PCP has 24-48 business hours to return their call: Yes Attempted to return the call to schedule a new patient appt *ER follow up for Ureterolithiasis *. No Answer. LVM to call back to schedule. Name of Caller: Gerri Contact Reason for Appointment: Gerri called advising to schedule his new patient referral ED follow up. Please call patient back and advise. Office Name: Urology documented in this encounter [facility] 03-26-2025 Telephone encounter Note Name of caller: Gerri Contact phone number: [phone] Relationship to Patient: patient Provider: Dr. Veliz Practice: [facility] Urology Chief Complaint/Reason for Call: Pt is returning a call to schedule a ER follow up for Ureterolithiasis. Please review. Best time of day caller can be reached: any Patient advised that office/PCP has 24-48 business hours to return their call: Yes [facility] 03-26-2025 Telephone encounter Note Attempted to return the call to schedule a new patient appt *ER follow up for Ureterolithiasis *. No Answer. LVM to call back to schedule. [facility] 03-26-2025 Note Name of Caller: Santhosh mooney Contact Reason for Appointment: Gerri called advising to schedule his new patient referral ED follow up. Please call patient back and advise. Office Name: Urology [facility] 03-26-2025 Telephone encounter Note Name of Caller: Gerri Contact Reason for Appointment: Gerri called advising to schedule his new patient referral ED follow up. Please call patient back and advise. Office Name: Urology [facility] 03-24-2025 Emergency department Triage note Pt ambulatory to ED4 with c/o left flank pain that started last night. Pt also c/o difficulty urinating. Denies hx of kidney stones. Pain is waxing/waning, rated 6/10 at present. Pt took ibuprofen around 0730. [facility] 03-24-2025 Emergency department Note Pt ambulatory to ED4 with c/o left flank pain that started last night. Pt also c/o difficulty urinating. Denies hx of kidney stones. Pain is waxing/waning, rated 6/10 at present. Pt took ibuprofen around 0730. EMERGENCY DEPARTMENT ENCOUNTER Pt Name: Gerri Waller Birthdate 1990 Date of evaluation: 03/24/2025 ED Provider: Layne Ramirez MD CHIEF COMPLAINT Chief Complaint Patient presents with Flank Pain HISTORY OF PRESENT ILLNESS (Location/Symptom, Timing/Onset, Context/Setting, Quality, Duration, Modifying Factors, Severity) Note limiting factors. I wore appropriate PPE for the entirety of this encounter. HPI Gerri Waller is a 34 y.o. who presents to the emergency department with chief complaint of left flank pain. Patient states that overnight has been having some intermittent severe sharp pains in the left flank radiating in the left side of the abdomen with associated nausea. He states that when the pain is severe it is a 10 out of 10 but last 10 to 15 minutes and in between he just has an aching pain. He also states that he feels the urge to urinate frequently but is not able to go or when he does it is in small amounts. He denies any burning just has a discomfort when trying to urinate. Denies any hematuria. Patient is never had anything like this before. Feels nauseated but no vomiting. Nursing Notes were reviewed. Limitations to history: None Outside historians: None REVIEW OF SYSTEMS Review of Systems Pertinent positives and negatives as per HPI. PAST MEDICAL HISTORY Past Medical History: Diagnosis Date GERD (gastroesophageal reflux disease) Hypertension SURGICAL HISTORY History reviewed. No pertinent surgical history. CURRENT MEDICATIONS Previous Medications OMEPRAZOLE PO Take by mouth. ALLERGIES Patient has no known allergies. FAMILY HISTORY No family history on file. SOCIAL HISTORY Social History Socioeconomic History Marital status: Single Tobacco Use Smoking status: Former Types: Cigarettes Vaping Use Vaping status: Every Day Substances: Nicotine Substance and Sexual Activity Drug use: Not Currently SCREENINGS PHYSICAL EXAM ED Triage Vitals [03/24/25 0956] Temp Heart Rate Resp BP 37.1 C (98.7 F) 59 18 139/85 SpO2 Temp src Heart Rate Source Patient Position 99 % -- -- -- BP Location FiO2 (%) -- -- General appearance: Well-appearing, no acute distress. Psych: Awake alert and oriented 3. Pleasant and cooperative. Skin: Warm and dry. Neck: Supple. Cardiovascular: Regular rate and rhythm Lungs: Clear to auscultation bilaterally, no accessory muscle use, tachypnea, or retractions. Abdomen: Soft, mild lower left tenderness and left CVA tenderness, and nondistended, no rebound, rigidity, or guarding, positive bowel sounds 4 quadrants. Extremities: Warm and well perfused. NROM and SILT throughout upper and lower extermities. DIAGNOSTIC RESULTS Interpretation per the Radiologist below, if available at the time of this note: CT abdomen pelvis wo IV contrast Final Result 1. Calculus in the distal left ureter measuring approximately 4 mm Report Dictated on Electronically Signed By: Gerri Egan MD Electronically Signed Date/Time: 03/24/2025 10:49 AM EDT ED BEDSIDE ULTRASOUND: Performed by ED Physician - none LABS: Labs Reviewed COMPLETE URINALYSIS - Abnormal Result Value Color, Urine Light Yellow Clarity, Urine Clear pH, Urine 7.0 Leukocytes, Urine Negative Nitrite, Urine Negative Protein, Urine Negative Glucose, Urine Normal Bilirubin, Urine Negative Ketones, Urine Negative Urobilinogen, Urine Normal Blood, Urine 0.03 (*) Volume, Urine 12 mL RBC, Urine 0-2 WBC, Urine Negative Squamous Epithelial, Urine Negative Bacteria, Urine Few (*) SPECIFIC GRAVITY OF URINE (NUMERIC) 1.011 CBC WITH AUTO DIFFERENTIAL - Normal Auto WBC 7.3 RBC 5.02 Hemoglobin 16.0 Hematocrit 46.9 MCV 93.4 MCH 31.9 MCHC 34.1 RDW 11.8 Platelets 254 MPV 10.6 nRBC 0.0 Neutrophils Relative 57.4 Lymphocytes Relative 27.7 Monocytes Relative 8.4 Eosinophils Relative 5.1 Basophils Relative 1.1 Immature Grans % 0.3 Neutrophils Absolute 4.2 Lymphocytes Absolute 2.0 Monocytes Absolute 0.6 Eosinophils Absolute 0.4 Basophils Absolute 0.1 Immature Grans Absolute 0.0 COMPREHENSIVE METABOLIC PANEL - Normal SODIUM 138 POTASSIUM 4.5 CHLORIDE 107 CARBON DIOXIDE 24 ANION GAP 7 UREA NITROGEN 13 CREATININE 0.78 GLUCOSE 96 CALCIUM 9.6 AST (SGOT) 21 ALT 20 ALKALINE PHOSPHATASE 101 ALBUMIN 4.2 BILIRUBIN, TOTAL 0.8 TOTAL PROTEIN 7.5 eGFR >90.0 COMPLETE URINALYSIS WITH REFLEX TO CULTURE Narrative: The following orders were created for panel order Urinalysis Complete with reflex to Culture. Procedure Abnormality Status --------- ------ Complete Urinalysis[[id number]] Abnormal Final result Please view results for these tests on the individual orders. All other labs were within normal range or not returned as of this dictation. EMERGENCY DEPARTMENT COURSE and DIFFERENTIAL DIAGNOSIS/MDM: Vitals: Vitals: 03/24/25 0956 03/24/25 1100 BP: 139/85 127/79 Pulse: 59 60 Resp: 18 16 Temp: 37.1 C (98.7 F) SpO2: 99% 100% Weight: 118 kg (260 lb) Height: 1.803 m (5' 11) The patient presented with a chief complaint of left flank pain. The differential diagnosis associated with this patient's presentation includes kidney stone, musculoskeletal back pain, urinary tract infection. Our workup consisted of ordering/reviewing labs urinalysis CT abdomen pelvis. Diagnostics interpreted by me: CT scan(s) 4 mm ureteral stone ED Medications managed: Medications sodium chloride 0.9 % bolus 1,000 mL (0 mL IntraVENous Stopped 03/24/25 1117) Pain is well-controlled. Patient given urology follow-up as well as return precautions discussed. Patient given medication for symptom management pending passing of a ureteral stone. CRITICAL CARE TIME CONSULTS: None PROCEDURES: Unless otherwise noted below, none Procedures FINAL IMPRESSION 1. Ureterolithiasis DISPOSITION Discharge 03/24/2025 11:58:45 AM PATIENT REFERRED TO: [facility] ED [address] [facility] [id number] If symptoms worsen [facility] - [place] [address] [facility] [address] [facility] [address] DISCHARGE MEDICATIONS: New Prescriptions CEPHALEXIN (KEFLEX) 500 MG CAPSULE Take 1 capsule (500 mg) by mouth 3 times daily for 5 days. ONDANSETRON ODT (ZOFRAN-ODT) 4 MG DISINTEGRATING TABLET Take 1 tablet (4 mg) by mouth every 8 hours as needed for nausea for up to 7 days. OXYCODONE-ACETAMINOPHEN (PERCOCET) 5-325 MG TABLET Take 1 tablet by mouth every 6 hours as needed for severe pain (7-10) for up to 5 days. TAMSULOSIN (FLOMAX) 0.4 MG 24 HR CAPSULE Take 1 capsule (0.4 mg) by mouth daily. (Comment: Please note this report has been produced using speech recognition software and may contain errors related to that system including errors in grammar, punctuation, and spelling, as well as words and phrases that may be inappropriate. If there are any questions or concerns please feel free to contact the dictating provider for clarification.) Layne Ramirez MD (electronically signed) Emergency Medicine Provider Layne Ramirez MD 03/24/25 1201 documented in this encounter [facility] 03-24-2025 Physician Emergency department Note EMERGENCY DEPARTMENT ENCOUNTER Pt Name: Gerri Waller Birthdate 1990 Date of evaluation: 03/24/2025 ED Provider: Layne Ramirez MD CHIEF COMPLAINT Chief Complaint Patient presents with Flank Pain HISTORY OF PRESENT ILLNESS (Location/Symptom, Timing/Onset, Context/Setting, Quality, Duration, Modifying Factors, Severity) Note limiting factors. I wore appropriate PPE for the entirety of this encounter. HPI Gerri Waller is a 34 y.o. who presents to the emergency department with chief complaint of left flank pain. Patient states that overnight has been having some intermittent severe sharp pains in the left flank radiating in the left side of the abdomen with associated nausea. He states that when the pain is severe it is a 10 out of 10 but last 10 to 15 minutes and in between he just has an aching pain. He also states that he feels the urge to urinate frequently but is not able to go or when he does it is in small amounts. He denies any burning just has a discomfort when trying to urinate. Denies any hematuria. Patient is never had anything like this before. Feels nauseated but no vomiting. Nursing Notes were reviewed. Limitations to history: None Outside historians: None REVIEW OF SYSTEMS Review of Systems Pertinent positives and negatives as per HPI. PAST MEDICAL HISTORY Past Medical History: Diagnosis Date GERD (gastroesophageal reflux disease) Hypertension SURGICAL HISTORY History reviewed. No pertinent surgical history. CURRENT MEDICATIONS Previous Medications OMEPRAZOLE PO Take by mouth. ALLERGIES Patient has no known allergies. FAMILY HISTORY No family history on file. SOCIAL HISTORY Social History Socioeconomic History Marital status: Single Tobacco Use Smoking status: Former Types: Cigarettes Vaping Use Vaping status: Every Day Substances: Nicotine Substance and Sexual Activity Drug use: Not Currently SCREENINGS PHYSICAL EXAM ED Triage Vitals [03/24/25 0956] Temp Heart Rate Resp BP 37.1 C (98.7 F) 59 18 139/85 SpO2 Temp src Heart Rate Source Patient Position 99 % -- -- -- BP Location FiO2 (%) -- -- General appearance: Well-appearing, no acute distress. Psych: Awake alert and oriented 3. Pleasant and cooperative. Skin: Warm and dry. Neck: Supple. Cardiovascular: Regular rate and rhythm Lungs: Clear to auscultation bilaterally, no accessory muscle use, tachypnea, or retractions. Abdomen: Soft, mild lower left tenderness and left CVA tenderness, and nondistended, no rebound, rigidity, or guarding, positive bowel sounds 4 quadrants. Extremities: Warm and well perfused. NROM and SILT throughout upper and lower extermities. DIAGNOSTIC RESULTS Interpretation per the Radiologist below, if available at the time of this note: CT abdomen pelvis wo IV contrast Final Result 1. Calculus in the distal left ureter measuring approximately 4 mm Report Dictated on Electronically Signed By: Gerri Egan MD Electronically Signed Date/Time: 03/24/2025 10:49 AM EDT ED BEDSIDE ULTRASOUND: Performed by ED Physician - none LABS: Labs Reviewed COMPLETE URINALYSIS - Abnormal Result Value Color, Urine Light Yellow Clarity, Urine Clear pH, Urine 7.0 Leukocytes, Urine Negative Nitrite, Urine Negative Protein, Urine Negative Glucose, Urine Normal Bilirubin, Urine Negative Ketones, Urine Negative Urobilinogen, Urine Normal Blood, Urine 0.03 (*) Volume, Urine 12 mL RBC, Urine 0-2 WBC, Urine Negative Squamous Epithelial, Urine Negative Bacteria, Urine Few (*) SPECIFIC GRAVITY OF URINE (NUMERIC) 1.011 CBC WITH AUTO DIFFERENTIAL - Normal Auto WBC 7.3 RBC 5.02 Hemoglobin 16.0 Hematocrit 46.9 MCV 93.4 MCH 31.9 MCHC 34.1 RDW 11.8 Platelets 254 MPV 10.6 nRBC 0.0 Neutrophils Relative 57.4 Lymphocytes Relative 27.7 Monocytes Relative 8.4 Eosinophils Relative 5.1 Basophils Relative 1.1 Immature Grans % 0.3 Neutrophils Absolute 4.2 Lymphocytes Absolute 2.0 Monocytes Absolute 0.6 Eosinophils Absolute 0.4 Basophils Absolute 0.1 Immature Grans Absolute 0.0 COMPREHENSIVE METABOLIC PANEL - Normal SODIUM 138 POTASSIUM 4.5 CHLORIDE 107 CARBON DIOXIDE 24 ANION GAP 7 UREA NITROGEN 13 CREATININE 0.78 GLUCOSE 96 CALCIUM 9.6 AST (SGOT) 21 ALT 20 ALKALINE PHOSPHATASE 101 ALBUMIN 4.2 BILIRUBIN, TOTAL 0.8 TOTAL PROTEIN 7.5 eGFR >90.0 COMPLETE URINALYSIS WITH REFLEX TO CULTURE Narrative: The following orders were created for panel order Urinalysis Complete with reflex to Culture. Procedure Abnormality Status --------- ------ Complete Urinalysis[[id number]] Abnormal Final result Please view results for these tests on the individual orders. All other labs were within normal range or not returned as of this dictation. EMERGENCY DEPARTMENT COURSE and DIFFERENTIAL DIAGNOSIS/MDM: Vitals: Vitals: 03/24/25 0956 03/24/25 1100 BP: 139/85 127/79 Pulse: 59 60 Resp: 18 16 Temp: 37.1 C (98.7 F) SpO2: 99% 100% Weight: 118 kg (260 lb) Height: 1.803 m (5' 11) The patient presented with a chief complaint of left flank pain. The differential diagnosis associated with this patient's presentation includes kidney stone, musculoskeletal back pain, urinary tract infection. Our workup consisted of ordering/reviewing labs urinalysis CT abdomen pelvis. Diagnostics interpreted by me: CT scan(s) 4 mm ureteral stone ED Medications managed: Medications sodium chloride 0.9 % bolus 1,000 mL (0 mL IntraVENous Stopped 03/24/25 1117) Pain is well-controlled. Patient given urology follow-up as well as return precautions discussed. Patient given medication for symptom management pending passing of a ureteral stone. CRITICAL CARE TIME CONSULTS: None PROCEDURES: Unless otherwise noted below, none Procedures FINAL IMPRESSION 1. Ureterolithiasis DISPOSITION Discharge 03/24/2025 11:58:45 AM PATIENT REFERRED TO: [facility] ED [address] [facility] [phone] If symptoms worsen [facility] - [place] [address] [facility] [address] [facility] [address] DISCHARGE MEDICATIONS: New Prescriptions CEPHALEXIN (KEFLEX) 500 MG CAPSULE Take 1 capsule (500 mg) by mouth 3 times daily for 5 days. ONDANSETRON ODT (ZOFRAN-ODT) 4 MG DISINTEGRATING TABLET Take 1 tablet (4 mg) by mouth every 8 hours as needed for nausea for up to 7 days. OXYCODONE-ACETAMINOPHEN (PERCOCET) 5-325 MG TABLET Take 1 tablet by mouth every 6 hours as needed for severe pain (7-10) for up to 5 days. TAMSULOSIN (FLOMAX) 0.4 MG 24 HR CAPSULE Take 1 capsule (0.4 mg) by mouth daily. (Comment: Please note this report has been produced using speech recognition software and may contain errors related to that system including errors in grammar, punctuation, and spelling, as well as words and phrases that may be inappropriate. If there are any questions or concerns please feel free to contact the dictating provider for clarification.) Layne Ramirez MD (electronically signed) Emergency Medicine Provider Layne Ramirez MD 03/24/25 1201 [facility] Evaluation note Diagnosis Ureterolithiasis- Primary Calculus of ureter documented in this encounter [facility] note* Diagnosis Ureterolithiasis- Primary Calculus of ureter Bladder spasms Hypertonicity of bladder documented in this encounter [facility] note* Diagnosis Ureterolithiasis- Primary Calculus of ureter documented in this encounter [facility] note* Diagnosis Ureterolithiasis Calculus of ureter documented in this encounter [facility] note* Diagnosis Ureterolithiasis- Primary Calculus of ureter Flank pain Abdominal pain, unspecified site documented in this encounter [facility] note* Diagnosis Ureterolithiasis Calculus of ureter Flank pain Abdominal pain, unspecified site [facility]* Attachments The following attachments cannot be sent through Care Everywhere. * Kidney Stones Discharge Instructions (Panamanian) documented in this [facility] HealthInstructions* Attachments The following attachments cannot be sent through Care Everywhere. * Kidney Stone Diet (Panamanian) documented in this [facility] Health Summary Purpose Family History No Family History Records FoundNo Family History Records FoundNo Family History Records Found Advance Directives No Advanced Directives Records FoundNo Advanced Directives Records FoundNo Advanced Directives Records Found Additional Source Comments (unrecognized sect ion and content) No Status Records FoundNo Status Records FoundNo Status Records Found INFORMATION SOURCE (unrecogn ized section and content) DATE CREATED AUTHOR 01/02/2024 [facility] DATE CREATED AUTHOR AUTHOR'S ORGANIZ ATION 01/07/2025 [facility] DATE CREATED AUTHOR AUTHOR'S ORGANIZ ATION 05/15/2025 [facility] Reason for Visit (unrecogniz ed section and content) Reason Comments Flank Pain Reason Onset Date Comments Appointment 03/26/2025 New patient refe rral (ED follow up) Reason Comments Urolithiasis Pain in lower back, bilaterally,constant, pain radiates around to left lower abdomen and down both legs, pain is 5/10 at this time, Urination has slowed down and become more frequent Denies fever, chills, nausea, vomiting or blood seen in urine Specialty Diagnoses / Procedures Referred By Contac t Referred To Contact Urology Diagnoses Ureterolithiasis Procedures [place] OFFICE/OUTPATIENT NEW HIGH MDM 60 MINUTES Layne Ramirez MD [address] [place] [address] Phone: tel: fax: [facility] [address] [place] [address] Phone: tel: fax: Referral ID Status Reason Start Date Expiration Date Visits Requested Visits Authorized [id number] Pending Review Specialty Services Required 03/24/2025 03/24/2026 1 1 Reason Onset Date Comments Results 04/28/2025 Reason Onset Date Comments Med Refill 04/26/2025 Reason Comments Other 4 week follow up, ki dney stonesPVR 73mlLeft side and groin pain, 06/05, constant that is described as dull and at times sharpDysuria, stream variability with dribbling, unsure if emptying bladder fully Scheduled Active and Recently Administ ered Medications (unrecognized section and content) Medication Order 03/22/2025 03/23/2025 03/24/2025 sodium chloride 0.9 % bolus 1,000 mL (COMPLETED) 1,000 mL, IntraVENous, at 1,000 mL/hr, Administer over 1 Hours, Once, On Mon03/24/25 at 1010, For 1 dose 1017 (New Bag - Prov ider: Ally Romero RN)1117 (Stopped - Provider: Ally Romero RN) Care Teams (unrecognized sec tion and content) Associate Vice President Relationship Specialty Start Date End Date Jose Alejandro Veliz MD [address] [place] [address] Urology 03/26/25 Associate Vice President Relationship Specialty Start Date End Date Lindsey Garcia [address] [place] [address] PCP - General Nurse Practitioner 03/27/25 Jose Alejandro Veliz MD [address] [place] [address] Urology 03/26/25 Associate Vice President Relationship Specialty Start Date End Date Lindsey Garcia [address] [place], [place] [id number] PCP - General Nurse Practitioner 03/27/25 Jose Alejandro Veliz MD [address] [place] [address] Urology 03/26/25 Associate Vice President Relationship Specialty Start Date End Date Lindsey Garcia [address] [place], [place] [id number] PCP - General Nurse Practitioner 03/27/25 Jose Alejandro Veliz MD [address] [place] [id number] Urology 03/26/25 Associate Vice President Relationship Specialty Start Date End Date Lindsey Garcia [address] [place] [address] PCP - General Nurse Practitioner 03/27/25 Jose Alejandro Veliz MD [address] [place] [address] [address] [place] [id number] Urology 03/26/25 Associate Vice President Relationship Specialty Start Date End Date Lindsey Garcia [address] [place] [address] PCP - General Nurse Practitioner 03/27/25 Jose Alejandro Veliz MD [address] [place] [id number] Urology 03/26/25 FOR RECORDS PERTAINING TO PATIENTS WHO ARE [...] BE BASED ON THE PRIMARY CLINICAL RECORDS. [facility]. provides no warranty or guarantee of the accuracy or completeness of information in this document.
[2025-10-11 15:36] LABS: Hematocrit 50.2 % (40-54); Hemoglobin 17.7 g/dL (13.0-16.5); Immature Granulocytes Count 0.080 X10^3/uL (0.0-0.0); Mean Corp Hgb Conc 35.3 g/dL (32-36); Mean Corpuscular Volume 91.8 fL (80-94); Mean Platelet Vol. 10.1 fl (6.2-12.0); NRBC Flagged by Analyzer 0 % (0-5); Platelet Count 372 K/mm3 (150-450); RBC Distribution Width CV 12.3 % (11.6-14.6); RBC Distribution Width SD 42.0 fl (35.1-43.9); Red Blood Count 5.47 M/mm3 (4.6-6.2); White Blood Count 18.0 K/mm3 (4.4-11.0)
[2025-10-11 15:48] LABS: Prothrombin Time (Protime)PT. 13.1 SECONDS (11.7-14.9)
[2025-10-11 15:49] LABS: Partial Thromboplast Time 23.2 Seconds (24.1-36.2)
[2025-10-11] MEDS: 0.9% Normal Saline (1000mL) 1,000 ML 1000 ML IV (15:50)
[2025-10-11 16:14] LABS: AST(SGOT) 31 U/L (<=37); Alanine Aminotransfer ALT/SGPT 31 U/L (<=46); Albumin, Serum 4.8 g/dL (3.5-5.0); Alkaline Phosphatase 111 U/L (40-129); Anion Gap 22 (5-15); BUN 12 mg/dL (4-19); BUN/Creat Ratio 12.4 RATIO (10-20); Calcium,Total 10.7 mg/dL (7.6-11.0); Carbon Dioxide 16.5 mmol/L (21.0-32.0); Chloride 100 mmol/L (98-108); Estimated Creatinine Clearance 144.74 ml/min (50-250); Globulin 3.3 g/dL (2.2-4.2); Glucose 105 mg/dL (70-99); Potassium 4.0 mmol/L (3.3-5.1); Troponin T High Sensitivity 11 ng/L (<=22)
[2025-10-11 16:16] LABS: Alcohol, Blood (Medical)-Serum < 10.1 mg/dL (<=10.0)
[2025-10-11 17:09] LABS: Barbiturate Urine NEGATIVE (< 200 ng/mL); Benzodiazepine Urine NEGATIVE (< 200 ng/mL); PCP Urine NEGATIVE (< 25 ng/mL); THC Urine NEGATIVE (< 50 ng/mL)
[2025-10-11 18:02] LABS: Troponin T High Sens 2 HR 22 ng/L (<=22)
--- NOTE | 2025-10-11 18:32 | HP.PCM.HOS_ITS ---
HPI - General General Date of Admission: 10/11/25 HPI Narrative GERRI WALLER, is a 34 M who presents to the hospital after at night of drinking Monday night into Monday morning. Apparently he drank so much that he blacked out and his friends took him to an outside ER where according to family they did not provide any care including no fluids. He was sent home from the emergency room and had an episode of vomiting and diarrhea and then developed numbness on the left side of his body and left side of his face. Family brought him in because of these new findings and they state that on the way here he was not making any verbal sense. He is only an NIH of 1 secondary to his sense of decreased sensation. CTA of the head and neck was unremarkable and CT of the brain was normal. He does have an elevated anion gap with a bicarb of 16.5 with a white count of 18 consistent with dehydration due to vomiting and diarrhea. He did receive a liter of fluids in the emergency room and had a CTA of his chest abdomen and pelvis done which was also negative for any pathology. He does have some abdominal pain on exam but this is muscular in nature due to his emesis. [facility] Medical History Hypertension Nicotine use disorder Panic disorder Major depressive disorder, recurrent severe without psychotic features Alcohol abuse with withdrawal Home Medications ?Medication ?Instructions ?Recorded ?Last Taken ?Type losartan 100 mg tablet 100 mg PO DAILY #90 tabs 10/11/25 Rx omeprazole 40 mg capsule,delayed 40 mg PO QDAY #90 cap s 09/25/25 10/11/25 Rx release oxybutynin chloride 10 mg 10 mg PO QDAY #90 tabs 09/2510/11/25 Rx tablet,extended release 24 hr fluoxetine 20 mg capsule 20 mg PO QDAY 09/26/2510/11 History lamotrigine 150 mg tablet 150 mg PO QDAY 09/26/2509/27 History (Lamictal) lorazepam 0.5 mg tablet 0.5 mg PO QDAY PRN anxiety 1 10/09/25 History atomoxetine 25 mg capsule 25 mg PO DAILY 10/11/25 Unkn own History fluoxetine 10 mg capsule 10 mg PO DAILY 10/11/2509/27 History mirtazapine 15 mg tablet 7.5 mg PO QHS 10/11/2510/09 History Allergy/AdvReac Type Severity Reaction Status Date / Time trazodone Allergy no sex Verified 10/11/25 14:58 drive and muscles tense bupropion AdvReac Severe made Verified 10/11/25 14:58 anxiety worse and angry escitalopram (From Lexapro) AdvReac Intermediate worked for Verified 10/11/25 14:58 1 year then stopped Family History Other Anxiety Heart disease Surgical History no surgical history no surgical history Social History Smoking Status: Current every day smoker tobacco type: e-cigarettes and smokeless tobacco ROS Constitutional Constitutional: Denies chills, fatigue, fever(s) or malaise Eyes Eyes: Denies blurry vision ENT HEENT: Denies headache(s) or nasal discharge Cardiovascular Cardiovascular: Denies chest pain, dyspnea on exertion or syncope Respiratory/Chest Respiratory/Chest: Denies cough, shortness of breath at rest or shortness of breath with exertion Gastrointestinal Gastrointestinal: Reports nausea and vomiting; Denies constipation or diarrhea Genitourinary Genitourinary: Denies dysuria Neurologic Neurologic: Reports paresthesias LUE and LLE; Denies focal weakness, numbness or tremor(s) Psychiatric Psychiatric: Denies anxiety or depression Vital Signs Vital Signs Vital Signs: 10/11/25 14:59 10/11/25 15:21 10/11/25 15:41 Temperature 98.9 F Temperature Source Oral Pulse Rate 132 H 96 Respiratory Rate 33 H 24 H Respiratory Effort Blood Pressure 137/75 H 123/98 H Blood Pressure Mean 95 106 Pulse Ox 98 98 98 Oxygen Delivery Method Room Air Room Air Room Air 10/11/25 15:42 10/11/25 15:52 10/11/25 16:22 Temperature Temperature Source Pulse Rate 104 H 87 Respiratory Rate 17 18 Respiratory Effort Normal Blood Pressure 126/78 H 126/68 H Blood Pressure Mean 94 87 Pulse Ox 99 96 Oxygen Delivery Method Room Air Room Air 10/11/25 17:17 10/11/25 17:30 10/11/25 17:45 Temperature Temperature Source Pulse Rate 86 88 83 Respiratory Rate 19 H 17 13 Respiratory Effort Blood Pressure 142/73 H 139/82 H 137/70 H Blood Pressure Mean 96 98 86 Pulse Ox 96 96 96 Oxygen Delivery Method 10/11/25 18:00 Temperature Temperature Source Pulse Rate 84 Respiratory Rate 15 Respiratory Effort Blood Pressure 137/67 H Blood Pressure Mean 89 Pulse Ox 96 Oxygen Delivery Method Weight Weight: 265 lb 3.2 oz Body Mass Index (BMI) 37.0 Physical Exam Narrative General: Alert, Oriented x3, Cooperative, No apparent distress HEENT: Atraumatic, PERRLA, EOMI, Normocephalic Oral: Dry mucosa Neck: Supple, No JVD Lungs: Clear to auscultation, Normal air movement, No rhonchi, No wheeze, No rales Cardiovascular: Regular rate, Regular Rhythm, Normal S1, Normal S2, No murmurs Abdomen: Soft, Non Tender, Non-Distended, No Hepato-splenomegaly Extremities: No edema, Capillary Refill Less than 3 Seconds Skin: No rashes, No breakdown Musculoskeletal: No Tenderness to Palpation of Joints or Extremities Neurological: Diminished sensation on his left upper and lower extremity, no drift, no weakness, speech intact Psych/Mental Status: Flat Results Lab / Micro Data 10/12/25 04:30 10/12/25 04:30 Labs: Laboratory Results - last 24 hr 10/11/25 15:06: WBC 18.0 H, RBC 5.47, Hgb 17.7 H, Hct 50.2, MCV 91.8, MCH 32.4 H , MCHC 35.3, RDW Std Deviation 42.0, RDW Coeff of Dong 12.3, Plt Count 372, MPV 10.1, Immature Gran % (Auto) 0.400, Neut % (Auto) 66.2, Lymph % (Auto) 24.2, [place] % (Auto) 8.0, Eos % (Auto) 0.6, Baso % (Auto) 0.6, Absolute Neuts (auto) 11.9 H, Absolute Lymphs (auto) 4.35, Nucleated RBC % 0, PT 13.1, INR 1.0, APTT 23.2 L, Sodium 138, Potassium 4.0, Chloride 100, Carbon Dioxide 16.5 L, Anion Gap 22 H, BUN 12, Creatinine 0.94, Estim Creat Clear Calc 144.74, Est GFR (MDRD) Non-Af 109, BUN/Creatinine Ratio 12.4, Glucose 105 H, Calcium 10.7, Total Bilirubin 0.94, AST 31, ALT 31, Alkaline Phosphatase 111, Troponin T High Sens 11, Total Protein 8.1, Albumin 4.8, Globulin 3.3, Albumin/Globulin Ratio 1.4 10/11/25 15:46: POC Glucose 101 10/11/25 15:48: Ethyl Alcohol < 10.1 10/11/25 16:45: Urine Opiates Screen NEGATIVE, U Buprenorphine Qual NEGATIVE, Ur Oxycodone Screen NEGATIVE, Urine Methadone Screen NEGATIVE, Urine Fentanyl Screen NEGATIVE, Ur Barbiturates Screen NEGATIVE, Ur Phencyclidine Scrn NEGATIVE, Ur Amphetamines Screen NEGATIVE, U Benzodiazepines Scrn NEGATIVE, Urine Cocaine Screen NEGATIVE, U Cannabinoids Screen NEGATIVE 10/11/25 17:27: Troponin T Hi Sens 2 Hr 22 Imaging Radiology Impression Brain CT 10/11/25 15:22 IMPRESSION: No acute abnormality. These results will be communicated to the referring provider at the time of this dictation. The time of communication will be documented on the CT angiographic study Reading Location: [facility] Chest/Abdomen/Pelvis CTA 10/11/25 15:22 IMPRESSION: No acute abnormality [facility] Head/Neck CTA 10/11/25 15:22 IMPRESSION: Stroke Alert: Negative noncontrast CT. Angiogram negative The critical findings in the findings and impression above were relayed directly by me by telephone to Lupe Patterson on 10/11/2025 at 4:04 pm with readback verification. Reading Location: [facility] Assessment & Plan Assessment/Plan (1) Paresthesia: PLAN: Plan 1. Left upper extremity and left lower extremity paresthesia ? Unclear as to the etiology at this time given age and story stroke and TIA is less likely ? He was fine prior to drinking to the point of passing out and then when he woke up he had left-sided numbness. Per the ED physician he initially said that he had bilateral numbness and then switch to left upper and left lower extremity numbness only. He does state that he has weakness however he has no drift on my exam ? Will hydrate and follow-up in the morning and plan for an MRI potentially on Monday 2. Anion gap metabolic acidosis ? He does have a leukocytosis however no signs of infection on workup ? No antibiotics ? Continue with IV fluids ? This is likely related to his vomiting ? Urine drug screen was negative 3. Anxiety/depression ? Stable ? Continue with his home medications 4. Essential HTN ? Allow for permissive hypertension ? Hold losartan 5. GERD ? Stable ? Continue with PPI DVT: SCDs 75 minutes was spent on direct patient care, including documentation as well as chart review and collaboration with colleagues. Charges/Coding Visit Charges Inpatient E&M: 86301 Init Hosp L3
[2025-10-11 18:51] LABS: Mucous, Urine 0 SEEN /hpf (<or=2+)
[2025-10-11 18:53] LABS: Color, Urine Yellow (Yellow); Glucose, Dipstick Normal (Normal); Ketone-Dipstick 15 mg/dl (Negative); Leukocyte Esterase-Dipstick Negative /ul (Negative); Nitrite-Dipstick Negative (Negative); Occult Blood-Urine Negative /ul (Negative); Protein-Dipstick 30 mg/dl (Negative); Specific Gravity, Urine 1.010 (1.002-1.030); Urine Bilirubin Dipstick Negative (Negative)
--- OUTSIDE RECORDS SUMMARY | 2025-10-11 18:53 | XMS RPT_ITS | CCD ---
Author Organization [facility] Care Team Providers Care Cable Driller Name Role Phone Radha CPC CODER, Lindsey Attending Unavailable Radha CPC CODER, Lindsey Primary Care Unavailable Andrew Gambino Attending Unavailable Radha CPC CODER, Lindsey Primary Care Unavailable EGRRI SCHULZ Primary Care Unavailable Unavailable Primary Care Provider Unavailpamella Veliz MD, Jose Alejandro Lezama Unavailable Garcia, Lindsey Primary Care Provider [phone] MANUEL SANDOVAL Attending Unavailable RADHA, LINDSEY Primary [...] Facility (1 source) buPROPion Drug Allergy 12-25-2023 [facility] Repository (1 source) traZODone Drug Allergy 12-25-2023 [facility] Repository Medications Current Medications Medication Drug [...] Voiced understanding. Will follow up as planned [facility] 36 ----- Message from JOIE Hudson CNP sent at 05/12/2025 4:19 PM EDT ----- Please let pt know that his RYDER did not show any stones or hydronephrosis. He can follow up as needed. ----- Message ----- From: Interface, Radiology Results In Sent: 05/09/2025 2:53 PM EDT To: JOIE Hartmann CNP [facility] US RETROPERITONEALon 025 US RETROPERITONEAL Patient Name: [...] Electronically Signed Date/Time: 05/09/2025 2:52 PM EDT [facility] US Retroperitoneumon 025 No echogenic shadowing calculus or hydronephrosis. Report Dictated on Electronically Signed By: Chan Lara MD Electronically Signed Date/Time: 05/09/2025 2:52 PM EDT [facility] Patient Name: GERRI WALLER : 1990 [...] Normal sonographic appearance. Bilateral ureteral jets noted. [facility] Chan Lara MD - 05/09/2025 Patient Name: [...] Electronically Signed Date/Time: 05/09/2025 2:52 PM EDT [facility] Radiology Study observation (narrative) [facility] US RetroperitoneumOrdered By : Chan Lara on 05-09-2025 [facility] [employer] Work Phone: 36on 05-01-2025 36 Patient was gave mes antonette verbatim per Pt verbalized understanding and stated he has already been prescribed something else. Normal [facility] AMB POC URINALYSIS DIP STICK AUTO W/O MICROon 05-01-2025 Bilirubin, UA Negative [facility] Blood, UA Trace-Intact [facility] Glucose, UA Negative [facility] [employer] Ketones, UA (mg/dL) Negative Negative mg/dL [facility] Leukocytes, UA Negative [facility] Nitrite, UA Negative [facility] pH, UA 7.0 [facility] [employer] Protein, UA Negative [facility] [employer] Spec Grav, UA 1.010 [facility] Urobilinogen, UA 0.2 [facility] Office Visiton 05-01-2025 Follow-up visit [id number] Eloy Waller 1990 M Date Provider Department Center 05/01/2025 [facility] URO None No family history on file Level of Service:74231 DC OFFICE/OUTPATIENT ESTABLISHED LOW MDM 20 MIN Reason for Visit and Comments: Other [0] - 4 week follow up, kidney stones PVR 73ml Left side and groin pain, 7/10, constant that is described as dull and at times sharp Dysuria, stream variability with dribbling, unsure if emptying bladder fully Normal [facility] Progress Noteon 05-01-2025 Progress Note . Urology Office Visit [facility] [address], [address] [facility] [id number] Visit type: Established Patient Reason for Visit: [...] Clean Up: There are no discontinued medications. Mnauel Sandoval, JOIE - BARRIE 05/01/2025 8:59 AM [...] file. [7] No family history on file. [facility] 04-29-2025 36 Patient called back in stating [...] relayed to the patient from encounter: Yes [facility] 04-28-2025 36 Call placed to the patient [...] the pain since his KUB was negative. [facility] 36 ----- Message from JOIE Hudson CNP sent at 04/28/2025 1:01 PM EDT ----- Please let patient know that his abdominal x-ray did not show any renal or ureteral stones. ----- Message ----- From: Interface, Radiology Results In Sent: 04/28/2025 4:21 AM EDT To: JOIE Hartmann CNP [facility] [id number] 36 Ordering provider: Jaime Date of last office visit: 03/27/25 Date of next office visit: 05/01/25 Updated/Validated preferred pharmacy: Yes -[facility] Patient instructed to contact the pharmacy prior [...] of last refill (see medication tab): 03/28/25 [facility] 36on 03-31-2025 36 Called and verified new order was received by pharmacy Normal [facility] 36on 03-27-2025 36 Name of caller: Erick duvall Contact phone number: [phone] Relationship to Patient: patient Provider: Jaime Practice: urology Chief Complaint/Reason for Call: pharmacy is calling in needing clarification on the instructions for the patients ibuprofen 800 MG tablet [[id number]] . They will wait to hear back from the office. Please advise and thank you Best time of day caller can be reached: any Patient advised that office/PCP has 24-48 business hours to return their call: Yes Normal [facility] Office Visiton 03-27-2025 Follow-up visit [id number] Eloy Waller devaughn 1990 M Date Provider Department Center 03/27/2025 [id number] SANDOVAL [facility] URO None No family history on file Level of Service:59391 DC OFFICE/OUTPATIENT NEW MODERATE MDM 45 MINUTES Reason for Visit and Comments: Urolithiasis [539] - Pain in lower back, bilaterally,constant, pain radiates around to left lower abdomen and down both legs, pain is 5/10 at this time, Urination has slowed down and become more frequent Denies fever, chills, nausea, vomiting or blood seen in urine Normal [facility] Progress Noteon 03-27-2025 Progress Note Manuel Sandoval, JOIE - COLOR STRIPPER 03/27/2025 at 12:29 PM Urology Office Visit [...] Narrative: [facility] Name[facility] 1990 [id number] Exam Date/Time: 03/24/2025 10:25 Procedure: CT ABDOMEN [...] orders for this visit: Ureterolithiasis (Primary) - [facility] Urology - tamsulosin (Flomax) [...] verbalizes understanding. (more content not included)... Normal [facility] 36on 03-26-2025 36 Returned the patient call. Scheduled 03/27/25 Parvin 11:00 AM with TAMMIE Manuel. *ER follow up Ureterolithiasis * [facility] 36 Name of caller: Santhosh mooney Contact phone number: [phone] Relationship to Patient: patient Provider: Dr. Veliz Practice: [facility] Urology Chief Complaint/Reason for Call: Pt is returning a call to schedule a ER follow up for Ureterolithiasis. Please review. Best time of day caller can be reached: any Patient advised that office/PCP has 24-48 business hours to return their call: Yes Normal [facility] 36 Attempted to return the call to schedule a new patient appt *ER follow up for Ureterolithiasis *. No Answer. LVM to call back to schedule. Normal [facility] CBC W Auto Differential pane l (Bld)on 03-24-2025 Basophils (Bld) [#/Vol] 0.1 10*3/uL 0.0 - 0.2 10*3/uL [facility] Basophils/100 WBC (Bld) 1.1 % 0.0 - 2.0 % [facility] [employer] Eosinophils (Bld) [#/Vol] 0.4 10*3/uL 0.0 - 0.5 10*3/uL [facility] [employer] Eosinophils/100 WBC (Bld) 5.1 % 0.0 - 6.0 % [facility] [employer] Erythrocyte distribution width (RBC) [Ratio] 11.8 % 11.5 - 15.0 % [facility] [employer] Hematocrit (Bld) [Volume fraction] 46.9 % 40.0 - 52.0 % [facility] [employer] Hemoglobin (Bld) [Mass/Vol] 16 g/dL 13.0 - 18.0 g/dL [facility] [employer] Immature granulocytes (Bld) [#/Vol] 0 10*3/uL NINF - 0.1 10*3/uL [facility] Immature granulocytes/100 WBC (Bld) 0.3 % 0.0 - 2.0 % [facility] [employer] Interpretation and review of laboratory results Normal [facility] [employer] Lymphocytes (Bld) [#/Vol] 2 10*3/uL 1.0 - 4.3 10*3/uL [facility] [employer] Lymphocytes/100 WBC (Bld) 27.7 % 15.0 - 45.0 % [facility] [employer] MCH (RBC) [Entitic mass] 31.9 pg 26. 0 - 34.0 pg [facility] [employer] MCHC (RBC) [Mass/Vol] 34.1 % 30.5 - 36.0 % [facility] [employer] MCV (RBC) [Entitic vol] 93.4 fL 77.0 - 99.0 fL [facility] Monocytes (Bld) [#/Vol] 0.6 10*3/uL 0.0 - 0.9 10*3/uL [facility] Monocytes/100 WBC (Bld) 8.4 % 5.0 - 13.0 % [facility] Neutrophils (Bld) [#/Vol] 4.2 10*3/uL 1.8 - 7.5 10*3/uL [facility] Neutrophils/100 WBC (Bld) 57.4 % 38.0 - 82.0 % [facility] Nucleated RBC/100 WBC (Bld) [Ratio] 0 % [facility] Platelet mean volume (Bld) [Entitic vol] 10.6 fL 9.0 - 12.7 fL [facility] Comment on above: MPV is a calculated measurement using platelet volume ratio Platelets (Bld) [#/Vol] 254 10*3/uL 140 - 440 10*3/uL [facility] RBC (Bld) [#/Vol] 5.02 10*6/uL 4.40 - 5.90 10*6/uL [facility] WBC (Bld) [#/Vol] 7.3 10*3/uL 3.6 - 10.7 10*3/uL [facility] CBC WITH AUTO DIFFERENTIALon 03-24-2025 Basophils (Bld) [#/Vol] 0.1 10*3/uL Normal 0.0-0.2 [facility] Comment on above: Performed By: #### L [id number] ####Sales Review Clerk: LATONIA VILLA ([id number])[facility] HOSPITALKRYSTAL eyeS[employer] Mobile TechnologiesKYLAHAN (SWRLAB)[address] [place] [address] Basophils/100 WBC (Bld) 1.1 % Normal 0.0-2.0 [facility] Comment on above: Performed By: #### L [id number] ####Sales Review Clerk: LATONIA VILLA ([id number])[facility] eyeS[employer] Mobile TechnologiesTMAN (SWRLAB)[address] [place] [address] Eosinophils (Bld) [#/Vol] 0.4 10*3/uL Normal 0.0-0.5 [facility] Comment on above: Performed By: #### L [id number] ####Sales Review Clerk: LATONIA VILLA ([id number])CINTIA RICE RITTMAN (SWRLAB)[address] [place] [address] [place] Eosinophils/100 WBC (Bld) 5.1 % Normal 0.0-6.0 [facility] Comment on above: Performed By: #### L [id number] ####Sales Review Clerk: LATONIA VILLA ([id number])[facility]OSPITALRebecca RICE RITTMAN (SWRLAB)[address] [place] [address] Erythrocyte distribution width (RBC) [Ratio] 11.8 % Normal 11.5-15.0 [facility] Comment on above: Performed By: #### L [id number] ####Sales Review Clerk: LATONIA VILLA ([id number])[facility]OSPITALRebecca RICE RITTMAN (SWRLAB)[address] [place] [address] Hematocrit (Bld) [Volume fraction] 46.9 % Normal 40.0-52.0 [facility] Comment on above: Performed By: #### L [id number] ####Sales Review Clerk: LATONIA VILLA ([id number])[facility]ITALRebecca RICE RITTMAN (SWRLAB)[address] [place] [address] Hemoglobin (Bld) [Mass/Vol] 16.0 g/dL Normal 13.0-18.0 [facility] Comment on above: Performed By: #### L [id number] ####Sales Review Clerk: LATONIA VILLA ([id number])[facility]ITALRebecca RICE RITTMAN (SWRLAB)[address] [place] [address] [place] IMMATURE GRANS % 0.3 % Normal 0.0-2.0 [facility] Comment on above: Performed By: #### L [id number] ####Sales Review Clerk: LATONIA VILLA ([id number])[facility]ITALRebecca RIEC RITTMAN (SWRLAB)[address] [place] [address] IMMATURE GRANS ABSOLUTE 0.0 10*3/uL Normal <0.1 [facility] Comment on above: Performed By: #### L [id number] ####Sales Review Clerk: LATONIA VILLA ([id number])CINTIA RICE RITTMAN (SWRLAB)[address] [place] [address] [place] Lymphocytes (Bld) [#/Vol] 2.0 10*3/uL Normal 1.0-4.3 [facility] Comment on above: Performed By: #### L [id number] ####Sales Review Clerk: LATONIA VILLA ([id number])[facility]ITALRebecca RICE RITTMAN (SWRLAB)[address] [place] [address] Lymphocytes/100 WBC (Bld) 27.7 % Normal 15.0-45.0 [facility] Comment on above: Performed By: #### L [id number] ####Sales Review Clerk: LATONIA VILLA ([id number])[facility]ITALRebecca RICE RITTMAN (SWRLAB)[address] [place] [address] MCH (RBC) [Entitic mass] 31.9 pg Normal 26.0-34.0 [facility] Comment on above: Performed By: #### L [id number] ####Sales Review Clerk: LATONIA VILLA ([id number])[facility]ITALRebecca RICE RITTMAN (SWRLAB)[address] [place] [address] MCHC 34.1 % Normal 30.5-36.0 [facility] Comment on above: Performed By: #### L [id number] ####Sales Review Clerk: LATONIA VILLA ([id number])CINTIA RICE RITTMAN (SWRLAB)[address] [place] [address] MCV (RBC) [Entitic vol] 93.4 fL Normal 77.0-99.0 [facility] Comment on above: Performed By: #### L [id number] ####Sales Review Clerk: LATONIA VILLA ([id number])CINTIA RICE RITTMAN (SWRLAB)[address] [place] [address] [place] Monocytes (Bld) [#/Vol] 0.6 10*3/uL Normal 0.0-0.9 [facility] Comment on above: Performed By: #### L [id number] ####Sales Review Clerk: LATONIA VILLA ([id number])CINTIA RICE RITTMAN (SWRLAB)[address] [place] [address] [place] Monocytes/100 WBC (Bld) 8.4 % Normal 5.0-13.0 [facility] Comment on above: Performed By: #### L [id number] ####Sales Review Clerk: LATONIA VILLA ([id number])CINTIA BOURGEOISWORTH RITTMAN (SWRLAB)[address] [place] [address] [place] NEUTROPHILS ABSOLUTE 4.2 10*3/uL Normal 1.8-7.5 [facility] Comment on above: Performed By: #### L [id number] ####Sales Review Clerk: LATONIA VILLA ([id number])CINTIA RICE RITTMAN (SWRLAB)[address] [place] [address] [place] Neutrophils/100 WBC (Bld) 57.4 % Normal 38.0-82.0 [facility] Comment on above: Performed By: #### L [id number] ####Sales Review Clerk: LATNOIA VILLA ([id number])CINTIA RICE [employer]ITTMAN (SWRLAB)[address] [place] [address] [place] NRBC 0.0 /100 WBCs Normal 0.0-2.0 [facility] Comment on above: Performed By: #### L [id number] ####Sales Review Clerk: LATONIA VILLA ([id number])CINTIA RICE RITTMAN (SWRLAB)[address] [place] [address] [place] Platelet mean volume (Bld) [Entitic vol] 10.6 fL Normal 9.0-12.7 [facility] Comment on above: Result Comment: MPV is a calculated measurement using platelet volume ratio Performed By: #### L [id number] ####Sales Review Clerk: LATONIA VILLA ([id number])CHRISA KRYSTAL RITTMAN (SWRLAB)[address] Platelets (Bld) [#/Vol] 254 10*3/uL Normal 140-440 [facility] Comment on above: Performed By: #### L [id number] ####Sales Review Clerk: LATONIA VILLA ([id number])[facility]ITALRebecca RICE RITTMAN (SWRLAB)[address] RBC (Bld) [#/Vol] 5.02 10*6/uL Normal 4.40-5.90 [facility] Comment on above: Performed By: #### L [id number] ####Sales Review Clerk: LATONIA VILLA ([id number])[facility]ITALRe[facility] RICE RITTMAN (SWRLAB)[address] [place] [address] WBC (Bld) [#/Vol] 7.3 10*3/uL Normal 3.6-10.7 [facility] Comment on above: Performed By: #### L [id number] ####Sales Review Clerk: LATONIA VILLA ([id number])[facility]ITALRe[facility] RICE RITTMAN (SWRLAB)[address] [place] [address] COMPLETE URINALYSISon 2024 BACTERIA (#/HPF) IN URINE Few Abnormal Negative [facility] Comment on above: Performed By: #### L [id number] ####Sales Review Clerk: LATONIA VILLA ([id number])[facility]ITALRe[facility] RICE RITTMAN (SWRLAB)[address] [place] [address] BILIRUBIN, TOTAL PRESENCE IN URINE Negative Normal Negative [facility] Comment on above: Performed By: #### L [id number] ####Sales Review Clerk: LATONIA VILLA ([id number])[facility]ITALRe[facility] RICE RITTMAN (SWRLAB)[address] [place] [address] Clarity (U) Clear Normal Clear [facility] Comment on above: Performed By: #### L [id number] ####Sales Review Clerk: LATONIA VILLA ([id number])[facility]ITALRe[facility] RICE RITTMAN (SWRLAB)[address] [place] [address] [place] Color (U) Light Yellow Normal Lt. Yellow [facility] Comment on above: Performed By: #### L [id number] ####Sales Review Clerk: LATONIA VILLA ([id number])[facility]ITALRe[facility] RICE RITTMAN (SWRLAB)[address] [place] [address] [place] GLUCOSE (MG/DL) IN URINE Normal Normal Nor mal (<70) [facility] Comment on above: Performed By: #### L [id number] ####Sales Review Clerk: LATONIA VILLA ([id number])[facility]ITALRe[facility] RICE RITTMAN (SWRLAB)[address] HEMOGLOBIN PRESENCE IN URINE 0.03 mg/dL Abnormal Negative [facility] Comment on above: Performed By: #### L [id number] ####Sales Review Clerk: LATONIA VILLA ([id number])[facility]ITALRe[facility] RICE RITTMAN (SWRLAB)[address] [place] [address] [place] Ketones Ql (U) Negative Normal Negative [facility] Comment on above: Performed By: #### L [id number] ####Sales Review Clerk: LATONIA VILLA ([id number])[facility]ITALRe[facility] RICE RITTMAN (SWRLAB)[address] [place] [address] [place] LEUKOCYTE ESTERASE PRESENCE IN URINE BY TEST STRIP Negative Normal Negative [facility] Comment on above: Performed By: #### L [id number] ####Sales Review Clerk: LATONIA VILLA ([id number])[facility]ITALRe[facility] RICE RITTMAN (SWRLAB)[address] [place] [address] [place] NITRITE PRESENCE IN URINE Negative Normal Negative [facility] Comment on above: Performed By: #### L [id number] ####Sales Review Clerk: LATONIA VILLA ([id number])[facility]ITALRe[facility] RICE RITTMAN (SWRLAB)[address] [place] [address] [place] pH (U) 7.0 [pH] Normal 5.0-8.0 [facility] Comment on above: Performed By: #### L [id number] ####Sales Review Clerk: LATONIA VILLA ([id number])[facility]ITAL[facility] RICE RITTMAN (SWRLAB)[address] [place] [address] Protein (U) [Mass/Vol] Negative Normal Negative [facility] Comment on above: Performed By: #### L [id number] ####Sales Review Clerk: LATONIA VILLA ([id number])[facility]ITALRe[facility] RICE RITTMAN (SWRLAB)[address] [place] [address] [place] RBC (#/HPF) IN URINE SEDIMENT 0-2 Normal 0-2 [facility] Comment on above: Performed By: #### L [id number] ####Sales Review Clerk: LATONIA VILLA ([id number])[facility]ITALRe[facility] RICE RITTMAN (SWRLAB)[address] [place] [address] Specific gravity (U) [Rel density] 1.011 Normal 1.005-1.03 0 [facility] Comment on above: Performed By: #### L [id number] ####Sales Review Clerk: LATONIA VILLA ([id number])[facility]ITALRe[facility] RICE RITTMAN (SWRLAB)[address] [place] [address] Specimen volume (U) 12 mL Normal [facility] Comment on above: Performed By: #### L [id number] ####Sales Review Clerk: LATONIA VILLA ([id number])[facility]ITALRe[facility] RICE RITTMAN (SWRLAB)[address] [place] [address] [place] SQUAMOUS EPITHELIAL CELLS (#/HPF) IN URINE SEDIMENT Negative Normal 3-5 [facility] Comment on above: Performed By: #### L [id number] ####Sales Review Clerk: LATONIA VILLA ([id number])[facility]ITALRebecca IRCE RITTMAN (SWRLAB)[address] [place] [address] [place] UROBILINOGEN (MG/DL) IN URINE Normal Normal Normal (0-1) [facility] Comment on above: Performed By: #### L [id number] ####Sales Review Clerk: LATONIA VILLA ([id number])[facility]ITALRe[facility] RICE RITTMAN (SWRLAB)[address] WBC (LEUKOCYTE) (#/HPF) IN URINE SEDIMENT Negative Normal 0-5 [facility] Comment on above: Performed By: #### L [id number] ####Sales Review Clerk: LATONIA VILLA ([id number])[facility]ITALRe[facility] RICE RITTMAN (SWRLAB)[address] COMPREHENSIVE METABOLIC PANE [place] 03-24-2025 Albumin [Mass/Vol] 4.2 g/dL Normal 3.5-5.0 [facility] Comment on above: Performed By: #### L [id number] #### Sales Review Clerk: LATONIA VILLA ([id number]) [facility] RICE RITTM[facility] (SWRLAB) [address] ALP [Catalytic activity/Vol] 101 U/L Normal 40-150 [facility] Comment on above: Performed By: #### L [id number] #### Sales Review Clerk: LATONIA VILLA ([id number]) [facility] RICE RITTM[facility] (SWRLAB) [address] ALT [Catalytic activity/Vol] 20 U/L Normal <40 [facility] Comment on above: Performed By: #### L [id number] #### Sales Review Clerk: LATONIA VILLA ([id number]) [facility] RICE RITTMAN (SWRLAB) [address] Anion gap [Moles/Vol] 7 mmol/L Normal 3-13 [facility] Comment on above: Performed By: #### L [id number] #### Sales Review Clerk: LATONIA VILLA ([id number]) [facility]ITALRe[facility] BOURGEOISKRYSTAL RITTMAN (SWRLAB) [address] AST [Catalytic activity/Vol] 21 U/L Normal <34 [facility] Comment on above: Performed By: #### L [id number] #### Sales Review Clerk: LATONIA VILLA ([id number]) [facility]ITALA KRYSTAL RITTMAN (SWRLAB) [address] [place] [address] [place] Bilirubin [Mass/Vol] 0.8 mg/dL Normal <1.2 [facility] Comment on above: Performed By: #### L [id number] #### Sales Review Clerk: LATONIA VILLA ([id number]) [facility]Re[facility] RICE RITTMAN (SWRLAB) [address] [place] [address] [place] Calcium [Mass/Vol] 9.6 mg/dL Normal 8.4-10.2 [facility] Comment on above: Performed By: #### L [id number] #### Sales Review Clerk: LATONIA VILLA ([id number]) [facility]Re[facility] RICE RITTMAN (SWRLAB) [address] Chloride [Moles/Vol] 107 mmol/L Normal 98-107 [facility] Comment on above: Performed By: #### L [id number] #### Sales Review Clerk: LATONIA VILLA ([id number]) [facility]ITALRe[facility] RICE RITTMAN (SWRLAB) [address] [place] [address] [place] CO2 [Moles/Vol] 24 mmol/L Normal 22-29 [facility] Comment on above: Performed By: #### L [id number] #### Sales Review Clerk: LATONIA VILLA ([id number]) [facility]Re[facility] RICE RITTMAN (SWRLAB) [address] [place] [address] [place] Creatinine [Mass/Vol] 0.78 mg/dL Normal 0.72-1.25 [facility] Comment on above: Performed By: #### L [id number] #### Sales Review Clerk: LATONIA VILLA ([id number]) [facility]ITALRe[facility] RICE RITTMAN (SWRLAB) [address] [place] [address] GLOMERULAR FILTRATION RATE ML/MIN/1.73 SQ M.PREDICTED >90.0 Normal >60.0 [facility] Comment on above: Result Comment: Calc ulation based on the Chronic Kidney Disease Epidemiology Collaboration (CKD-EPI) equation refit without adjustment for race Performed By: #### L [id number] #### Sales Review Clerk: LATONIA VILLA ([id number]) [facility] RICE RITTMAN (SWRLAB) [address] [place] [address] Glucose [Mass/Vol] 96 mg/dL Normal 74-100 [facility] Comment on above: Performed By: #### L [id number] #### Sales Review Clerk: LATONIA VILLA ([id number]) [facility] RICE RITTMAN (SWRLAB) [address] [place] [address] Potassium [Moles/Vol] 4.5 mmol/L Normal 3.5-5.1 [facility] Comment on above: Result Comment: [facility] potassium values may be up to 0.5 mmol/L lower than serum values. Performed By: #### L AB17 #### Sales Review Clerk: LATONIA VILLA ([id number]) [facility]ITAL[facility] RICE RITTMAN (SWRLAB) [address] [place] [address] Protein [Mass/Vol] 7.5 g/dL Normal 6.4-8.3 [facility] Comment on above: Performed By: #### L [id number] #### Sales Review Clerk: LATONIA VILLA ([id number]) [facility] RICE RITTMAN (SWRLAB) [address] [place] [address] Sodium [Moles/Vol] 138 mmol/L Normal 136-145 [facility] Comment on above: Performed By: #### L AB17 #### Sales Review Clerk: LATONIA VILLA ([phone]) [facility] R[facility]ITTM[facility] (SWRLAB) [address] [place] [address] [place] Urea nitrogen [Mass/Vol] 13 mg/dL Normal 8-21 [facility] Comment on above: Performed By: #### L AB17 #### Sales Review Clerk: LATONIA VILLA ([phone]) [facility] RICE RITTMAN (SWRLAB) [address] [place] [address] CT ABDOMEN PELVIS WO IV CONT RASTon [...] urinating. Denies hx of kidney stones. Normal [facility] CT Abdomen and Pelvis WO con traston 03-24-2025 1. Calculus in the d istal left ureter measuring approximately 4 mm Report Dictated on Electronically Signed By: Gerri Egan MD Electronically Signed Date/Time: 03/24/2025 10:49 AM EDT [facility] Patient Name: GERRI WALLER : 1990 [...] fracture or destructive osseous lesion is identified. [facility] Gerri Egan MD - 03/24/2025 [facility] Name: [facility] 1990 [id number] Exam Date/Time: 03/24/2025 10:25 Procedure: CT ABDOMEN [...] Electronically Signed Date/Time: 03/24/2025 10:49 AM EDT [facility] Study observation (narrative) [facility] CT Abdomen and Pelvis WO con trastOrdered By: Gerri Egan on 03-24-2025 [facility] Work Phone: Comprehensive metabolic 1998 panelon 03-24-2025 Albumin [Mass/Vol] 4.2 g/dL 3.5 - 5.0 g/dL [facility] ALP [Catalytic activity/Vol] 101 U/L 40 - 150 U/L [facility] ALT [Catalytic activity/Vol] 20 U/L NINF - 40 U/L [facility] Anion gap [Moles/Vol] 7 mmol/L 3 - 13 mmol/L [facility] AST [Catalytic activity/Vol] 21 U/L NINF - 34 U/L [facility] Bilirubin [Mass/Vol] 0.8 mg/dL NINF - 1.2 mg/dL [facility] Calcium [Mass/Vol] 9.6 mg/dL 8.4 - 10. 2 mg/dL [facility] Chloride [Moles/Vol] 107 mmol/L 98 - 10 7 mmol/L [facility] CO2 [Moles/Vol] 24 mmol/L 22 - 29 mmol/L [facility] Creatinine [Mass/Vol] 0.78 mg/dL 0.72 - 1.25 mg/dL [facility] GFR/1.73 sq M.predicted (S/P/Bld) [Vol rate/Area] - PINF [facility] Comment on above: Calculation based on the Chronic Kidney Disease Epidemiology Collaboration (CKD-EPI) equation refit without adjustment for race Glucose [Mass/Vol] 96 mg/dL 74 - 100 mg/dL [facility] Interpretation and review of laboratory results Normal [facility] Potassium [Moles/Vol] 4.5 mmol/L 3.5 - 5.1 mmol/L [facility] Comment on above: Plasma potassium yaniv ues may be up to 0.5 mmol/L lower than serum values. Protein [Mass/Vol] 7.5 g/dL 6.4 - 8.3 g/dL [facility] Sodium [Moles/Vol] 138 mmol/L 136 - 145 mmol/L [facility] Urea nitrogen [Mass/Vol] 13 mg/dL 8 - 21 mg/dL [facility] ED Nursing Noteon 03-24-2025 ED Nursing Note Pt ambulatory to ED4 with c/o left flank pain that started last night. Pt also c/o difficulty urinating. Denies hx of kidney stones. Pain is waxing/waning, rated 6/10 at present. Pt took ibuprofen around 0730. Normal [facility] ED Provider Noteon ED Provider Note EMERGENCY [...] Culture. Procedure Abnormality Status --------- ------ Complete Urinalysis[[id number]] Abnormal Final result Please view results for these tests on the individual orders. All other labs were within normal range or not returned as of this dictation. EMERGENCY DEPARTMENT COURSE and DIFFERENTIAL DIAGNOSIS/MDM: Vital (more content not included)... Normal [facility] Urinalysis complete panel (U )Ordered By: Katy Dumont on 03-24-2025 Bacteria LM.HPF (Urine sed) [#/Area] Few Abnormal Negative /HPF [facility] Bilirubin Ql (U) Negative Negative mg/dL [facility] Clarity (U) Clear Clear [facility] Color (U) Light Yellow Lt. Yellow [facility] Epithelial cells.squamous LM.HPF (Urine sed) [#/Area] Negative [facility] Glucose Ql (U) Normal Normal (<70) mg/dL [facility] Hemoglobin Ql (U) 0.03 mg/dL Abnormal Negative [facility] Interpretation and review of laboratory results Abnormal [facility] Ketones (U) [Mass/Vol] Negative Negat brett mg/dL [facility] Leukocyte esterase Test strip Ql (U) Negative Negative Stephan/uL [facility] Nitrite Ql (U) Negative Negative [facility] pH (U) 7.0 [pH] 5.0 - 8.0 pH [facility] Protein (U) [Mass/Vol] Negative Negat brett mg/dL [facility] RBC LM.HPF (Urine sed) [#/Area] 0-2 [facility] Specific gravity (U) [Rel density] 1.011 1.005 - 1.030 [facility] Urobilinogen (U) [Mass/Vol] Normal Normal (0-1) mg/dL [facility] Volume, Urine 12 mL [facility] WBC LM.HPF (Urine sed) [#/Area] Negative [facility] 25(OH)D3 [facility] 25-hydroxyvitamin D3 [Mass/Vol] 114.0 ng/mL Normal >=30.0 [facility] Comment on above: Order Comment: Speci men Type: BLOOD SPECIMEN Ordering Facility: [facility] Address: [address] [place] [address] Result Comment: Clas sification of 25 [place] Vitamin D status: Deficiency: <= 20.0 ng/ml. Insufficiency: 21.0-29.0 ng/ml. Sufficiency: >= 30.0 ng/ml. Performed By: #### 1 989-3 #### [facility] CLIA [id number] [address] [place] [address] [place] [facility] CBC W Auto Differential pane l (Bld)on 12-27-2024 Basophils (Bld) [#/Vol] 0.05 10*3/uL Normal <0.11 [facility] Comment on above: Order Comment: Speci men Type: BLOOD SPECIMEN Ordering Facility: [facility] Address: [address] [place] [address] Performed By: #### 5 7021-8 #### [facility] CLIA [id number] [address] [place] [address] [place] Basophils/100 WBC (Bld) 0.9 % Normal [facility] Comment on above: Order Comment: Speci men Type: BLOOD SPECIMEN Ordering Facility: [facility] Address: [address] [place] [address] Performed By: #### 5 7021-8 #### [facility] CLIA [id number] [address] OF [place] Differential cell count method Nom (Bld) Auto Normal [facility] Comment on above: Order Comment: Speci men Type: BLOOD SPECIMEN Ordering Facility: [facility] Address: [address] [place] [address] Performed By: #### 5 7021-8 #### [facility] CLIA [id number] [address] [place] [address] [place] Eosinophils (Bld) [#/Vol] 0.34 10*3/uL Normal <0.46 [facility] Comment on above: Order Comment: Speci men Type: BLOOD SPECIMEN Ordering Facility: [facility] Address: [address] [place] [address] Performed By: #### 5 7021-8 #### [facility] CLIA [id number] [address] [place] Eosinophils/100 WBC (Bld) 6.1 % Normal [facility] Comment on above: Order Comment: Speci men Type: BLOOD SPECIMEN Ordering Facility: [facility] Address: [address] [place] [address] Performed By: #### 5 7021-8 #### [facility] CLIA [id number] [address] [place] [address] [place] Erythrocyte distribution width (RBC) [Ratio] 11.7 % Normal 11.5-15.0 [facility] Comment on above: Order Comment: Speci men Type: BLOOD SPECIMEN Ordering Facility: [facility] Address: [address] [place] [address] Performed By: #### 5 7021-8 #### [facility] CLIA [id number] [address] [place] [address] [place] Hematocrit (Bld) [Volume fraction] 48.3 % Normal 39.0-51.0 [facility] Comment on above: Order Comment: Speci men Type: BLOOD SPECIMEN Ordering Facility: [facility] Address: [address] [place] [address] Performed By: #### 5 7021-8 #### [facility] CLIA [id number] [address] [place] [address] [place] Hemoglobin (Bld) [Mass/Vol] 15.9 g/dL Normal 13.0-17.0 [facility] Comment on above: Order Comment: Speci men Type: BLOOD SPECIMEN Ordering Facility: [facility] Address: [address] [place] [address] Performed By: #### 5 7021-8 #### [facility] CLIA [id number] [address] [place] [address] [place] Immature granulocytes (Bld) [#/Vol] 10*3/uL Normal <0.10 [facility] Comment on above: Order Comment: Speci men Type: BLOOD SPECIMEN Ordering Facility: [facility] Address: [address] [place] [address] Performed By: #### 5 7021-8 #### [facility] CLIA [id number] [address] STATES [place] Immature granulocytes/100 WBC (Bld) 0.2 % Normal [facility] Comment on above: Order Comment: Speci men Type: BLOOD SPECIMEN Ordering Facility: [facility] Address: [address] [place] [address] Performed By: #### 5 7021-8 #### [facility] CLIA [id number] [address] [place] [address] [place] Lymphocytes (Bld) [#/Vol] 1.84 10*3/uL Normal 1.00-4.00 [facility] Comment on above: Order Comment: Speci men Type: BLOOD SPECIMEN Ordering Facility: [facility] Address: [address] [place] [address] Performed By: #### 5 7021-8 #### [facility] CLIA [id number] [address] Lymphocytes/100 WBC (Bld) 33.1 % Normal [facility] Comment on above: Order Comment: Speci men Type: BLOOD SPECIMEN Ordering Facility: [facility] Address: [address] [place] [address] Performed By: #### 5 7021-8 #### [facility] CLIA [id number] [address] [place] [address] [place] MCH (RBC) [Entitic mass] 31.7 pg Normal 26.0-34.0 [facility] Comment on above: Order Comment: Speci men Type: BLOOD SPECIMEN Ordering Facility: [facility] Address: [address] [place] [address] Performed By: #### 5 7021-8 #### [facility] CLIA [id number] [address] [place] [address] [place] MCHC (RBC) [Mass/Vol] 32.9 g/dL Normal 30.5-36.0 [facility] Comment on above: Order Comment: Speci men Type: BLOOD SPECIMEN Ordering Facility: [facility] Address: [address] [place] [address] Performed By: #### 5 7021-8 #### [facility] CLIA [id number] [address] [place] [address] [place] MCV (RBC) [Entitic vol] 96.2 fL Normal 80.0-100.0 [facility] Comment on above: Order Comment: Speci men Type: BLOOD SPECIMEN Ordering Facility: [facility] Address: [address] [place] [address] Performed By: #### 5 7021-8 #### [facility] CLIA [id number] [address] [place] [address] [place] Monocytes (Bld) [#/Vol] 0.54 10*3/uL Normal <0.87 [facility] Comment on above: Order Comment: Speci men Type: BLOOD SPECIMEN Ordering Facility: [facility] Address: [address] [place] [address] Performed By: #### 5 7021-8 #### [facility] CLIA [id number] [address] [place] [address] [place] Monocytes/100 WBC (Bld) 9.7 % Normal [facility] Comment on above: Order Comment: Speci men Type: BLOOD SPECIMEN Ordering Facility: [facility] Address: [address] [place] [address] Performed By: #### 5 7021-8 #### [facility] CLIA [id number] [address] [place] [address] [place] Neutrophils (Bld) [#/Vol] 2.78 10*3/uL Normal 1.45-7.50 [facility] Comment on above: Order Comment: Speci men Type: BLOOD SPECIMEN Ordering Facility: [facility] Address: [address] [place] [address] Performed By: #### 5 7021-8 #### [facility] CLIA [id number] [address] [place] [address] [place] Neutrophils/100 WBC (Bld) 50.0 % Normal [facility] Comment on above: Order Comment: Speci men Type: BLOOD SPECIMEN Ordering Facility: [facility] Address: [address] [place] [address] Performed By: #### 5 7021-8 #### [facility] CLIA [id number] [address] [place] [address] [place] Nucleated RBC (Bld) [#/Vol] Normal [facility] Comment on above: Order Comment: Speci men Type: BLOOD SPECIMEN Ordering Facility: [facility] Address: [address] [place] [address] Performed By: #### 5 7021-8 #### [facility] CLIA [id number] [address] [place] [address] [place] Nucleated RBC/100 WBC (Bld) [Ratio] Normal [facility] Comment on above: Order Comment: Speci men Type: BLOOD SPECIMEN Ordering Facility: [facility] Address: [address] [place] [address] Performed By: #### 5 7021-8 #### [facility] CLIA [id number] [address] [place] [address] [place] Platelet mean volume (Bld) [Entitic vol] 10.2 fL Normal 9.0-12.7 [facility] Comment on above: Order Comment: Speci men Type: BLOOD SPECIMEN Ordering Facility: [facility] Address: [address] [place] [address] Performed By: #### 5 7021-8 #### [facility] CLIA [id number] [address] [place] [address] [place] Platelets (Bld) [#/Vol] 230 10*3/uL Normal 150-400 [facility] Comment on above: Order Comment: Speci men Type: BLOOD SPECIMEN Ordering Facility: [facility] Address: [address] [place] [address] Performed By: #### 5 7021-8 #### [facility] CLIA [id number] [address] [place] [address] [place] RBC (Bld) [#/Vol] 5.02 10*6/uL Normal 4.20-6.00 [facility] Comment on above: Order Comment: Speci men Type: BLOOD SPECIMEN Ordering Facility: [facility] Address: [address] [place] [address] Performed By: #### 5 7021-8 #### [facility] CLIA [id number] [address] [place] [address] [place] WBC (Bld) [#/Vol] 5.56 10*3/uL Normal 3.70-11.00 [facility] Comment on above: Order Comment: Speci men Type: BLOOD SPECIMEN Ordering Facility: [facility] Address: [address] [place] [address] Performed By: #### 5 7021-8 #### [facility] CLIA [id number] [address] [place] PSA/PROSTATE SPECIFIC ANTIGE N SCREENINGon 12-27-2024 Prostate specific Ag [Mass/Vol] 0.69 ng/mL Normal <2.60 [facility] Comment on above: Order Comment: Speci men Type: BLOOD SPECIMEN [facility]ing Facility[facility] Address: [address] [place] [address] Result Comment: Tota l PSA test methodology used is the Electrochemiluminescence Immunoassay by [employer]. Total PSA values by differing methodologies cannot be interchanged. Performed By: #### P SAS1 #### [facility] CLIA [id number] [address] STATES OF [facility] TESTOSTERONE, FREE AND TOTAL , BY EQUILIBRIUM ULTRAFILTRATION MASS SPECTROMETRYon 12-27-2024 Testosterone [Mass/Vol] 585.1 ng/dL Normal 264. 0-916. 0 [facility] Comment on above: Order Comment: Speci men Type: BLOOD SPECIMEN Ordering Facility: [facility] Address: [address] [place] [address] Result Comment: This [facility] LC/MS-MS method is currently certified by the CDC Hormone Standardization Program (HoSt). Adult male reference interval is based on a population of healthy nonobese males (BMI <30) between 19 and 39 years old. Joyce, et.al. JCEM 2017,102;5058-8579. PMID: 55222475. Performed By: #### T FTEST #### [facility] CLIA [id number] [address] [place] [address] Testosterone Free [Mass/Vol] 25.16 ng/dL High 5.00-21.00 [facility] Comment on above: Order Comment: Speci men Type: BLOOD SPECIMEN Ordering Facility: [facility] Address: [address] [place] [address] Performed By: #### T FTEST #### [facility] CLIA [id number] [address] [place] [address] Testosterone Free/Testosterone.total [Mass fraction] 4.30 % High 1.50-4.20 [facility] Comment on above: Order Comment: Speci men Type: BLOOD SPECIMEN Ordering Facility: [facility] Address: [address] [place] [address] Performed By: #### T FTEST #### [facility] CLIA [id number] [address] [place] [address] EBV Acute Prof IgG / IgMon 0 12-29-2023 EB Ab VCA, IgG > 600.0 High 0.0-17.9 [facility] Comment on above: Result Comment: Nega tive <18.0 Equivocal 18.0 - 21.9 Positive >21.9 Performed By: #### L 506.1000, L3100.5850, L501.9520, L503.0105 #### [facility] [address] [place], [address] EBV Ab VCA, IgM < 36.0 Normal 0.0-35.9 [facility] Comment on above: Result Comment: Nega tive <36.0 Equivocal 36.0 - 43.9 Positive >43.9 Performed By: #### L 506.1000, L3100.5850, L501.9520, L503.0105 #### [facility] [address] [place], [address] EBV NuAg Ab,IgG > 600.0 High 0.0-17.9 [facility] Comment on above: Result Comment: Nega tive <18.0 Equivocal 18.0 - 21.9 Positive >21.9 Performed By: #### L 506.1000, L3100.5850, L501.9520, L503.0105 #### [facility] [address] [place], [address] INTERPRETATION Comment Normal . [facility] Comment on above: Result Comment: EBV [...] never develop antibodies to EBNA. Performed at: [address] [id number] Plastics Scientist: Arik Brizuela PhD, Phone: [phone] Performed By: #### L 506.1000, L3100.5850, L501.9520, L503.0105 #### [facility] [address] [place], [address] Thyroid Stim Hormone (TSH)on 12-28-2023 TSH 0.97 uIU/mL Normal 0.358-3.74 [facility] Comment on above: Performed By: #### L 506.1000, L3100.5850, L501.9520, L503.0105 #### [facility] [address] [place], [address] Vitamin B12on 12-27-2023 Cobalamin (Vitamin B12) [Mass/Vol] 452 pg/mL Normal 211-911 [facility] Comment on above: Performed By: #### L 506.1000, L3100.5850, L501.9520, L503.0105 #### [facility] [address] [facility] [place], [address] Vitamin D,25 Hydroxyon 12-27 Vitamin D 25-OH 24.6 ng/mL Normal [facility] Comment on above: Result Comment: [place] min D 25(OH) Status Range Deficiency <20 ng/mL (50nmol/L) Insufficiency 20 - 30 ng/mL (50 - 75 nmol/L) Sufficiency 30 - 100 ng/mL (75 - 250 nmol/L) Toxicity >100 ng/mL (>250 nmol/L) Performed By: #### L 506.1000, L3100.5850, L501.9520, L503.0105 #### [facility] [address] [place], [address] Basic Metabolic Profile (BMP )on 12-25-2023 BUN/CRE 9.3 RATIO Low 10-20 [facility] Comment on above: Order Comment: 'TROP ' Serial specimen #1, #2 or #3: 1 Performed By: #### L 100.0100, L500.2500, L501.4020 #### [facility] [address] [place], [address] CA,Total 9.4 mg/dL Normal 8.5-10.1 [facility] Comment on above: Order Comment: 'TROP ' Serial specimen #1, #2 or #3: 1 Performed By: #### L 100.0100, L500.2500, L501.4020 #### [facility] [address] [place], [address] Chloride [Moles/Vol] 103 mmol/L Normal 98-107 [facility] Comment on above: Order Comment: 'TROP ' Serial specimen #1, #2 or #3: 1 Performed By: #### L 100.0100, L500.2500, L501.4020 #### [facility] [address] [place], [address] CO2 [Moles/Vol] 28.0 mmol/L Normal 21.0-32.0 [facility] Comment on above: Order Comment: 'TROP ' Serial specimen #1, #2 or #3: 1 Performed By: #### L 100.0100, L500.2500, L501.4020 #### [facility] [address] [place], [address] Creatinine [Mass/Vol] 0.76 mg/dL Normal 0.70-1.30 [facility] Comment on above: Order Comment: 'TROP ' Serial specimen #1, #2 or #3: 1 Result Comment: The validity of the calculated GFR GFRAA in patients over 70 years has not been determined. Clinical correlation is essential. Performed By: #### L 100.0100, L500.2500, L501.4020 #### [facility] [address] [place], [address] ECRCL 169.57 ml/min Normal [facility] Comment on above: Order Comment: 'TROP ' Serial specimen #1, #2 or #3: 1 Performed By: #### L 100.0100, L500.2500, L501.4020 #### [facility] [address] [place], [address] EST GFR - AA 152 mL/min Normal >60 [facility] Comment on above: Order Comment: 'TROP ' Serial specimen #1, #2 or #3: 1 Result Comment: Afri can [place] GFR Calc Performed By: #### L 100.0100, L500.2500, L501.4020 #### [facility] [address] [place], [address] GAP 5 Normal 5-15 [facility] Comment on above: Order Comment: 'TROP ' Serial specimen #1, #2 or #3: 1 Performed By: #### L 100.0100, L500.2500, L501.4020 #### [facility] [address] [place], [address] GFR/1.73 sq M.predicted among non-blacks MDRD (S/P/Bld) [Vol rate/Area] 126 mL/min/{1.73_m2} Normal >60 [facility] Comment on above: Order Comment: 'TROP ' Serial specimen #1, #2 or #3: 1 Result Comment: Non- GFR Calc Performed By: #### L 100.0100, L500.2500, L501.4020 #### [facility] [address] [place], [address] Glucose [Mass/Vol] 95 mg/dL Normal 74-106 [facility] Comment on above: Order Comment: 'TROP ' Serial specimen #1, #2 or #3: 1 Performed By: #### L 100.0100, L500.2500, L501.4020 #### [facility] [address] [place], [address] Potassium [Moles/Vol] 3.9 mmol/L Normal 3.5-5.1 [facility] Comment on above: Order Comment: 'TROP ' Serial specimen #1, #2 or #3: 1 Performed By: #### L 100.0100, L500.2500, L501.4020 #### [facility] [address] [place], [address] Sodium [Moles/Vol] 136 mmol/L Normal 136-145 [facility] Comment on above: Order Comment: 'TROP ' Serial specimen #1, #2 or #3: 1 Performed By: #### L 100.0100, L500.2500, L501.4020 #### [facility] [address] [place], [address] Urea nitrogen [Mass/Vol] 7 mg/dL Normal 7-18 [facility] Comment on above: Order Comment: 'TROP ' Serial specimen #1, #2 or #3: 1 Performed By: #### L 100.0100, L500.2500, L501.4020 #### [facility] [address] [place], [address] CBC W/Diff, Automatedon 11-28 Absolute Lymph 1.60 X10 3/uL Normal 0.83-4.51 [facility] Comment on above: Performed By: #### L 100.0100, L500.2500, L501.4020 #### [facility] [address] [place], [address] Absolute Neut 5.1 X10 3/uL Normal 2.0-7.7 [facility] Comment on above: Performed By: #### L 100.0100, L500.2500, L501.4020 #### [facility] [address] [place], [address] Basophils/100 WBC (Bld) 0.9 % Normal 0-1 [facility] Comment on above: Performed By: #### L 100.0100, L500.2500, L501.4020 #### [facility] [address] [place], [place], [address] Eosinophils/100 WBC (Bld) 3.0 % Normal 0-5 [facility] Comment on above: Performed By: #### L 100.0100, L500.2500, L501.4020 #### [facility] [address] [place], [address] Erythrocyte distribution width (RBC) [Ratio] 11.8 % Normal 11.6-14.6 [facility] Comment on above: Performed By: #### L 100.0100, L500.2500, L501.4020 #### [facility] [address] [place], [address] Hematocrit (Bld) [Volume fraction] 46.3 % Normal 40-54 [facility] Comment on above: Performed By: #### L 100.0100, L500.2500, L501.4020 #### [facility] [address] [place], [address] Hemoglobin (Bld) [Mass/Vol] 15.5 g/dL Normal 13.0-16.5 [facility] Comment on above: Performed By: #### L 100.0100, L500.2500, L501.4020 #### [facility] [address] [place], [address] IG% 0.300 Normal 0.0-0.9 [facility] Comment on above: Result Comment: IG% - Immature Granulocytes (promyelocytes, myelocytes and metamyelocytes) > 1% indicates that a LEFT SHIFT is Present. Performed By: #### L 100.0100, L500.2500, L501.4020 #### [facility] [address] [place], [address] Lymphocytes/100 WBC (Bld) 20.6 % Normal 19-41 [facility] Comment on above: Performed By: #### L 100.0100, L500.2500, L501.4020 #### [facility] [address] [place], [address] MCH (RBC) [Entitic mass] 32.0 pg Normal 27.0-32.0 [facility] Comment on above: Performed By: #### L 100.0100, L500.2500, L501.4020 #### [facility] [address] [place], [address] MCHC (RBC) [Mass/Vol] 33.5 g/dL Normal 32-36 [facility] Comment on above: Performed By: #### L 100.0100, L500.2500, L501.4020 #### [facility] [address] [place], [address] MCV (RBC) [Entitic vol] 95.5 fL High 80-94 [facility] Comment on above: Performed By: #### L 100.0100, L500.2500, L501.4020 #### [facility] [address] [place], [address] Monocytes/100 WBC (Bld) 10.4 % High 0-10 [facility] Comment on above: Performed By: #### L 100.0100, L500.2500, L501.4020 #### [facility] [address] [place], [address] Neutrophils/100 WBC (Bld) 64.8 % Normal 47-70 [facility] Comment on above: Performed By: #### L 100.0100, L500.2500, L501.4020 #### [facility] [address] [place], [address] Nucleated RBC (Bld) [#/Vol] 0 10*3/uL Normal 0-5 [facility] Comment on above: Performed By: #### L 100.0100, L500.2500, L501.4020 #### [facility] [address] [place], [address] Platelet mean volume (Bld) [Entitic vol] 10.5 fL Normal 6.2-12.0 [facility] Comment on above: Performed By: #### L 100.0100, L500.2500, L501.4020 #### [facility] [address] [place], [address] Platelets (Bld) [#/Vol] 217 10*3/uL Normal 150-450 [facility] Comment on above: Performed By: #### L 100.0100, L500.2500, L501.4020 #### [facility] [address] [place], [address] RBC (Bld) [#/Vol] 4.85 10*6/uL Normal 4.6-6.2 [facility] Comment on above: Performed By: #### L 100.0100, L500.2500, L501.4020 #### [facility] [address] [place], [address] RDW SD 41.1 fl Normal 35.1-43.9 [facility] Comment on above: Performed By: #### L 100.0100, L500.2500, L501.4020 #### [facility] [address] [place], [address] WBC (Bld) [#/Vol] 7.8 10*3/uL Normal 4.4-11.0 [facility] Comment on above: Performed By: #### L 100.0100, L500.2500, L501.4020 #### [facility] [address] [place], [place], [address] Chest PA and Lateralon 12-25 Chest PA and Lateral [facility] [address] [place] [address] Chest PA and Lateral MR#: [id number] Acct: [id number] Name: GERRI WALLER Rep #: [id number] : 1990 M 33 From: Clifford vicente MD PCP: Lindsey Garcia NP-C Status: [facility] ER Study: Chest PA and Lateral Date of Exam: 12/25/23 Exam# [id number] Ordering Dr: Andrew Gambino DO [id number] STUDY: X-RAY CHEST REASON FOR EXAM: Male, [...] CC: MARGAUX Garcia; Dr. Andrew Gambino DO Steel Inspector: Signed Normal [facility] Emergency Department Summary on 12-25-2023 Emergency Department Summary [facility] Medical Records Department [address] [place] [address] Emergency Department Summary 12/25/23 MR#: [id number] Acct: [id number] Name: GERRI WALLER Rep #: [id number] : 1990 33 From: Andrew Gambino DO [...] headache. Patient denies any nausea or vomiting. [facility] Medical History Alcohol abuse with withdrawal Major [...] was negativ (more content not included)... Normal [facility] L501.4020on 12-25-2023 TROPONIN-I HS 11 pg/mL Normal 3.0-78.0 [facility] Comment on above: Order Comment: 'TROP ' Serial specimen #1, #2 or #3: 1 Result Comment: Rose cope Note: New Test Units and Gender Specific Reference Ranges. For more information see Policy Stat Procedure [place] High Sensitivity Troponin (TNIH) and attachments. Performed By: #### L 506.1000, L3100.5850, L501.9520, L503.0105 #### [facility] [address] [place], [address] M100.678on 12-25-2023 M100.678 Normal Reference Ran ge = Negative COV + FLU + RSV PCR GeneXpert Instrument, PCR method SARS-CoV-2 (COVID 19) Negative INFLUENZA A Negative INFLUENZA B Negative RSV PCR Negative Normal [facility] Comment on above: Performed By: #### M 100.678 #### [facility] [address] [place], [address] Urinalysis, Completeon 12-25 BACTERIA 0 SEEN Normal None Seen [facility] Comment on above: Order Comment: ADRIEN HOLLANDOR TO SPECIFY Performed By: #### L 400.0001 #### [facility] [address] [place], [address] EPI,SQUAMOUS 0 SEEN Normal 0-5 [facility] Comment on above: Order Comment: ADRIEN HOLLANDOR TO SPECIFY Performed By: #### L 400.0001 #### [facility] [address] [place], [address] Mucus Ql (Urine sed) 0 SEEN Normal [facility] Comment on above: Order Comment: COLLE CTOR TO SPECIFY Performed By: #### L 400.0001 #### [facility] [address] [place], [place], [address] RBC 0 SEEN Normal 0-5 [facility] Comment on above: Order Comment: COLLE CTOR TO SPECIFY Performed By: #### L 400.0001 #### [facility] [address] [place], [place], [address] WBC 0 SEEN Normal 0-5 [facility] Comment on above: Order Comment: COLLE CTOR TO SPECIFY Performed By: #### L 400.0001 #### [facility] [address] [place], [place], [address] Vital Signs Date Time Vital Sign Value Performing Clinician Leonid rich 05-01-2025 08:31-0400 Diastolic blood pressure 77 mm[Hg] Manuel Sandoval LATHE SCALPER OPERATOR - COLOR STRIPPER Work Phone: [facility] [employer] 05-01-2025 08:31-0400 Heart rate 90 /min Manuel Jaime APR N - COLOR STRIPPER Work Phone: [facility] [employer] 05-01-2025 08:31-0400 Systolic blood pressure 124 mm[Hg] Manuel Sandoval LATHE SCALPER OPERATOR - COLOR STRIPPER Work Phone: [facility] [employer] 03-27-2025 11:11-0400 Body height 180.3 cm Manuel Sandoval APR N - COLOR STRIPPER Work Phone: [facility] [employer] 03-27-2025 11:11-0400 Body mass index (BMI) [Ratio] 36.26 kg/m2 Manuel Jaime LATHE SCALPER OPERATOR - COLOR STRIPPER Work Phone: [facility] [employer] 03-27-2025 11:11-0400 Body weight 117.94 kg Manuel Sandoval APR N - COLOR STRIPPER Work Phone: [facility] [employer] 03-27-2025 11:11-0400 Diastolic blood pressure 76 mm[Hg] Manuel Sandoval LATHE SCALPER OPERATOR - COLOR STRIPPER Work Phone: [facility] [employer] 03-27-2025 11:11-0400 Heart rate 88 /min Manuel Sandoval APR N - COLOR STRIPPER Work Phone: [facility] [employer] 03-27-2025 11:11-0400 Systolic blood pressure 133 mm[Hg] Manuel Sandoval LATHE SCALPER OPERATOR - COLOR STRIPPER Work Phone: [facility] [employer] 03-24-2025 11:00-0400 Diastolic blood pressure 79 mm[Hg] Layne Ramirez MD Work Phone: [facility] [employer] 03-24-2025 11:00-0400 Heart rate 60 /min Layne Ramirez MD Work Phone: [facility] [employer] 03-24-2025 11:00-0400 Respiratory rate 16 /min Layne Ramirez MD Work Phone: [facility] [employer] 03-24-2025 11:00-0400 SaO2% (BldA) [Mass fraction] 100 % Layne Ramirez MD Work Phone: [employer] 03-24-2025 11:00-0400 Systolic blood pressure 127 mm[Hg] Layne Ramirez MD Work Phone: [employer] 03-24-2025 09:56-0400 Body height 180.3 cm Layne Ramirez MD Work Phone: [employer] 03-24-2025 09:56-0400 Body mass index (BMI) [Ratio] 36.26 kg/m2 Layne Ramirez MD Work Phone: [facility] [employer] 03-24-2025 09:56-0400 Body temperature 98.71 [degF] Layne Ramirez MD Work Phone: [employer] 03-24-2025 09:56-0400 Body weight 117.94 kg Layne Ramirez MD Work Phone: [facility] [employer] Encounters Encounter Date Encounter Type Care Provider Facility Start: 05-09-2025 End: 05-09-2025 Subsequent hospital visit by physician Manuel Sandoval LATHE SCALPER OPERATOR - COLOR STRIPPER Work Phone: [facility] Comment on above: Ureterolithiasis; Flank pain Start: 05-09-2025 End: 05-09-2025 ambulatory [facility] Start: 05-01-2025 End: 05-01-2025 Office outpatient visit 15 minutes Manuel Rivera CNP Work Phone: [facility] [place] Comment on above: Ureterolithiasis (Pr imary Dx); Flank pain Start: 05-01-2025 End: 05-02-2025 ambulatory [facility] Start: 04-28-2025 End: 04-28-2025 Follow-up encounter Manuel Rivera CNP Work Phone: [facility] [place] Comment on above: XR abdomen 1 view Start: 04-26-2025 End: 04-28-2025 Telephone encounter Manuel Rivera CNP Work Phone: [facility] [facility] [place] Comment on above: Med Refill Start: 04-26-2025 End: 04-26-2025 Subsequent hospital visit by physician Manuel Rivera CNP Work Phone: [facility] Comment on above: Ureterolithiasis Start: 04-26-2025 End: 04-26-2025 [facility] Start: 03-28-2025 End: 03-28-2025 Orders Only Manuel Sandoval APRN - [place] Work Phone: [facility] [place] Comment on above: Ureterolithiasis (Pr imary Dx) Start: 03-27-2025 End: 03-27-2025 Office outpatient new 45 minutes Manuel Rivera CNP Work Phone: [facility] [place] Comment on above: Ureterolithiasis (Pr imary Dx); Bladder spasms Start: 03-27-2025 End: 03-27-2025 ambulatory [facility] Start: 03-26-2025 End: 03-26-2025 Telephone encounter Jose Alejandro Veliz MD Work Phone: [facility] [place] Comment on above: Appointment (New pat ient referral (ED follow up)) Start: 03-24-2025 End: 03-24-2025 Emergency department patient visit Layne Ramirez MD Work Phone: [facility] Comment on above: Ureterolithiasis (Pr imary Dx) Start: 12-27-2024 End: 12-27-2024 ambulatory GERRI Siena SCHULZ Facility:[facility] Start: 12-27-2023 End: 12-27-2023 ambulatory Lindsey Garcia NP Facility:[facility] Start: 12-25-2023 End: 12-25-2023 Emergency department patient visit Andrew Gambino Facility:[facility] Procedures Date Procedure Procedure Detail Performing Clinician Start: 05-09-2025 Us retroperitoneal r eal time w/image complete Manuel Sandoval LATHE SCALPER OPERATOR - COLOR STRIPPER Work Phone: Start: 05-01-2025 Urnls dip stick/tabl et rgnt auto w/o microscopy Manuel Sandoval LATHE SCALPER OPERATOR - COLOR STRIPPER Work Phone: Start: 03-24-2025 Ct abdomen & [...] for Adults (1 - 1-dose 75+ series) [facility] Start: 2039 Zoster Vaccines (1 of 2) Zoster Vacc mckenna (1 of 2) [facility] Start: 07-28-2025 Influenza vaccination Influenz a Vaccine (Season Ended) [facility] Start: 05-29-2025 End: 05-29-2025 Patient encounter procedure 05/29/2025 8:30 AM EDT Office Visit [facility] [address] [place] [phone] Manuel Sandoval, LATHE SCALPER OPERATOR - COLOR STRIPPER [address] [place] [address] [facility] Start: 05-02-2025 Subsequent hospital visit by physician 05/02/2025 4:30 PM EDT Hospital Encounter [facility] [address] [place] [address] Manuel Sandoval, LATHE SCALPER OPERATOR - COLOR STRIPPER [address] [place] [address] [facility] Start: 05-01-2025 End: 05-01-2026 US Retroperitoneum US retroperitoneum Imaging Routine Ureterolithiasis Flank pain Expected: 05/01/2025, Expires: 05/01/2026 [facility] [employer] Work Phone: Comment on above: Expected: 05/01/2025 , Expires: 05/01/2026 Start: 05-01-2025 End: 05-01-2025 Patient encounter procedure 05/01/2025 8:30 AM EDT Office Visit [facility] [address] [place] [phone] Manuel Sandoval, LATHE SCALPER OPERATOR - COLOR STRIPPER [address] [place] [address] [facility] Start: 04-27-2025 End: 03-27-2026 XR Abdomen Single view XR abdomen 1 view Imaging Routine Ureterolithiasis Expected: 04/27/2025, Expires: 03/27/2026 [facility] [employer] Work Phone: Comment on above: Expected: 04/27/2025 , Expires: 03/27/2026 Start: 03-27-2025 End: 03-27-2025 Patient encounter procedure 03/27/2025 11:00 AM EDT Office Visit [facility] [place] [address] [place] [phone] Manuel Sandoval, LATHE SCALPER OPERATOR - COLOR STRIPPER [address] [place] [address] [facility] [place] Start: 07-28-2024 COVID-19 Vaccine ( season) COVID-19 Vaccine ( season) [facility] Start: 2008 DTaP/Tdap/Td Vaccine s (1 - Tdap) DTaP/Tdap/Td Vaccines (1 - Tdap) [facility] Start: 2008 Hepatitis B Vaccines (1 of 3 - 19+ 3-dose series) Hepatitis B Vaccines (1 of 3 - 19+ 3-dose series) [facility] Start: 2008 Pneumococcal Vaccine : Pediatrics (0 to 5 Years) and At-Risk Patients (6 to 49 Years) (1 of 2 - PCV) Pneumococcal Vaccine: Pediatrics (0 to 5 Years) and At-Risk Patients (6 to 49 Years) (1 of 2 - PCV) [facility] Start: 2007 Hepatitis C screening Hepatitis C Sc reening [facility] Start: 2002 Varicella vaccination Varicell a Vaccines (1 of 2 - 13+ 2-dose series) [facility] Start: 2001 Depression Monitoring Depression Mon itoring [facility] Start: 1990 MMR Vaccines (1 of 1 - Standard series) MMR Vaccines (1 of 1 - Standard series) [facility] Start: 1989 HIV screening HIV Screening [facility] Start: 1989 Lipid panel Lipid Panel [facility] End: 04-26-2025 XR Abdomen Single view [facility] Work Phone: Comment on above: Once for 1 Occurrenc es starting 04/26/2025 until 04/26/2025 Payers Date Payer Category Payer Self-pay 2023 Unknown [id number] 2021 [employer] Cross Blue Shie ld Managed Care - [employer] [id number] 2021 Unknown [id number] Unknown [id number] Unknown [id number] Social History Date Type Detail Facility Start: 03-24-2025 Tobacco smoking status PRIS Ex-smoke r [facility] History of tobacco use Current smoker [facility] History of tobacco use Cigarette Smoker [facility] Start: 03-24-2025 Alcoholic beverage intake Not Asked [facility] Start: 03-24-2025 History of Social function [facility] Start: 03-24-2025 Tobacco use panel [facility] Start: 1990 Sex assigned at Not on file S [facility] Start: 03-24-2025 Sex Male (finding) [facility] michael Clinical Notes 03-24-2025 to 05-01-2025 [...] he has already been prescribed something else. [facility] 05-01-2025 Miscellaneous Notes Patient was gave message verbatim per Pt verbalized understanding and stated he has already been prescribed something else. Ordering provider: Jaime Date of last office visit: 03/27/25 Date of next office visit: 05/01/25 Updated/Validated preferred pharmacy: Yes -[facility] [address] in [place] Patient instructed to contact the pharmacy prior [...] medication tab): 03/28/25 documented in this encounter [facility] 05-01-2025 History of Presen t illness Narrative . Urology Office Visit [facility] [address] [facility] [phone] Visit type: Established Patient Reason for Visit: [...] history on file. documented in this encounter [facility] 04-29-2025 Telephone encounter Note Patient called back [...] relayed to the patient from encounter: Yes [facility] 04-29-2025 Miscellaneous Notes Patient called back in [...] JOIE Hartmann CNP documented in this encounter [facility] 04-28-2025 Telephone encounter Note Call placed to [...] the pain since his KUB was negative. [facility] 04-28-2025 Miscellaneous Notes Call placed to the [...] JOIE Hartmann CNP documented in this encounter [facility] 04-28-2025 Telephone encounter Note ----- Message from JOIE Hudson CNP sent at 04/28/2025 1:01 PM EDT ----- Please let patient know that his abdominal x-ray did not show any renal or ureteral stones. ----- Message ----- From: Interface, Radiology Results In Sent: 04/28/2025 4:21 AM EDT To: JOIE Hartmann CNP [facility] 04-26-2025 Telephone encounter Note Ordering provider: Jaime Date of last office visit: 03/27/25 Date of next office visit: 05/01/25 Updated/Validated preferred pharmacy: Yes -[facility] [facility] Patient instructed to contact the pharmacy prior [...] of last refill (see medication tab): 03/28/25 [facility] 03-27-2025 History of Presen t illness Narrative Images from the original note were not included. Manuel Sandoval, JOIE - COLOR STRIPPER 03/27/2025 at 12:29 PM Urology Office Visit [...] authenticate this note. documented in this encounter [facility] 03-26-2025 Telephone encounter Note Returned the patient call. Scheduled 03/27/25 [place] 11:00 AM with TAMMIE Manuel. *ER follow up Ureterolithiasis * [facility] 03-26-2025 Miscellaneous Notes Returned the patient call. Scheduled 03/27/25 [place] 11:00 AM with TAMMIE Manuel. *ER follow up Ureterolithiasis * Name of caller: Gerri Contact phone number: [phone] Relationship to Patient: patient Provider: Dr. Veliz Practice: [facility] Urology Chief Complaint/Reason for [...] Office Name: Urology documented in this encounter [facility] 03-26-2025 Telephone encounter Note Name of caller: Gerri Contact phone number: [phone] Relationship to Patient: patient Provider: Dr. Veliz Practice: [facility] Urology Chief Complaint/Reason for Call: Pt is returning a call to schedule a ER follow up for Ureterolithiasis. Please review. Best time of day caller can be reached: any Patient advised that office/PCP has 24-48 business hours to return their call: Yes [facility] 03-26-2025 Telephone encounter Note Attempted to return the call to schedule a new patient appt *ER follow up for Ureterolithiasis *. No Answer. LVM to call back to schedule. [facility] 03-26-2025 Note Name of Caller: Santhosh mooney Contact Reason for Appointment: Gerri called advising to schedule his new patient referral ED follow up. Please call patient back and advise. Office Name: Urology [facility] 03-26-2025 Telephone encounter Note Name of Caller: Gerri Contact Reason for Appointment: Gerri called advising to schedule his new patient referral ED follow up. Please call patient back and advise. Office Name: Urology [facility] 03-24-2025 Emergency department Triage note Pt ambulatory to ED4 with c/o left flank pain that started last night. Pt also c/o difficulty urinating. Denies hx of kidney stones. Pain is waxing/waning, rated 6/10 at present. Pt took ibuprofen around 0730. [facility] 03-24-2025 Emergency department Note Pt ambulatory to [...] Culture. Procedure Abnormality Status --------- ------ Complete Urinalysis[[id number]] Abnormal Final result Please view results for [...] Discharge 03/24/2025 11:58:45 AM PATIENT REFERRED TO: [facility] [address] [phone] If symptoms worsen [facility] [place] [address] [facility] [phone] DISCHARGE MEDICATIONS: New Prescriptions CEPHALEXIN (KEFLEX) [...] MD 03/24/25 1201 documented in this encounter [facility] 03-24-2025 Physician Emergency department Note EMERGENCY DEPARTMENT [...] Culture. Procedure Abnormality Status --------- ------ Complete Urinalysis[[id number]] Abnormal Final result Please view results for [...] Discharge 03/24/2025 11:58:45 AM PATIENT REFERRED TO: [facility] [address] [phone] If symptoms worsen [facility] [place] [address] [facility] [phone] DISCHARGE MEDICATIONS: New Prescriptions CEPHALEXIN (KEFLEX) [...] Medicine Provider Layne Ramirez MD 03/24/25 1201 [facility] Evaluation note Diagnosis Ureterolithiasis- Primary Calculus of ureter documented in this encounter [facility] note* Diagnosis Ureterolithiasis- Primary Calculus of ureter Bladder spasms Hypertonicity of bladder documented in this encounter [facility] note* Diagnosis Ureterolithiasis- Primary Calculus of ureter documented in this encounter [facility] note* Diagnosis Ureterolithiasis Calculus of ureter documented in this encounter [facility] note* Diagnosis Ureterolithiasis- Primary Calculus of ureter Flank pain Abdominal pain, unspecified site documented in this encounter [facility] note* Diagnosis Ureterolithiasis Calculus of ureter Flank pain Abdominal pain, unspecified site [facility]* Attachments The following attachments cannot be sent through Care Everywhere. * Kidney Stones Discharge Instructions (Czech) documented in this [facility] Health[facility]ructions* Attachments The following attachments cannot be sent through Care Everywhere. * Kidney Stone Diet (Czech) documented in this [facility] Summary Purpose Family History No Family History Records FoundNo Family History Records FoundNo Family History Records Found Advance Directives No Advanced Directives Records FoundNo Advanced Directives Records FoundNo Advanced Directives Records Found Additional Source Comments (unrecognized sect ion and content) No Status Records FoundNo Status Records FoundNo Status Records Found INFORMATION SOURCE (unrecogn ized section and content) DATE CREATED AUTHOR 01/02/[address] [facility] DATE CREATED AUTHOR AUTHOR'S ORGANIZ ATION 01/07/2025 [facility] DATE CREATED AUTHOR AUTHOR'S ORGANIZ ATION 05/15/2025 [facility] Reason for Visit (unrecogniz [...] Referred To Contact Urology Diagnoses Ureterolithiasis Procedures DC OFFICE/OUTPATIENT NEW HIGH MDM 60 MINUTES Layne Ramirez MD [address] [place] [address] Phone: tel: fax: [facility] [address] [place] [address] Phone: tel: fax: Referral ID Status Reason Start Date Expiration Date Visits Requested Visits Authorized [id number] Pending Review Specialty Services Required 03/24/2025 03/24/2026 [...] Care Teams (unrecognized sec tion and content) Cable Driller Relationship Specialty Start Date End Date Jose Alejandro Veliz MD [address] [place] [address] Urology 03/26/25 Cable Driller Relationship Specialty Start Date End Date Lindsey Garcia [address] [place] [address] PCP - General Nurse Practitioner 03/27/25 Jose Alejandro Veliz MD [address] [place] [address] Urology 03/26/25 Cable Driller Relationship Specialty Start Date End Date Lindsey Garcia [address] [place], [place] [id number] PCP - General Nurse Practitioner 03/27/25 Jose Alejandro Veliz MD [address] [place] [id number] Urology 03/26/25 Cable Driller Relationship Specialty Start Date End Date Lindsey Garcia [address] [place], [place] [phone] PCP - General Nurse Practitioner 03/27/25 Jose Alejandro Veliz MD [address] [place] [id number] Urology 03/26/25 Cable Driller Relationship Specialty Start Date End Date Lindsey Garcia [address] [place] [address] PCP - General Nurse Practitioner 03/27/25 Jose Alejandro Veliz MD [address] [place] [address] [address] [place] [address] Urology 03/26/25 Cable Driller Relationship Specialty Start Date End Date Lindsey Garcia [address] [place] [address] PCP - General Nurse Practitioner 03/27/25 Jose Alejandro Veliz MD [address] [place] [address] Urology 03/26/25 FOR RECORDS PERTAINING TO PATIENTS [...] ON THE PRIMARY CLINICAL RECORDS. [facility] [employer] [facility]. provides no warranty or guarantee of the accuracy or completeness of information in this document.
[2025-10-11 19:15] LABS: Red Blood Cells-Urine 0-5 SEEN /hpf (0-5); Squamous Epithelial Cells - UA 0-5 SEEN /hpf (0-5)
[2025-10-11 20:05] LABS: Troponin T High Sens 4 HR 19 ng/L (<=22)
[2025-10-11] MEDS: 0.9% Normal Saline (1000mL) 1,000 ML 125 ML IV (20:33)
[2025-10-11] MEDS: 0.9% Saline Lock 10 ML Syringe IV (20:34)
[2025-10-12] VITALS (7 sets, daily range): BP systolic 107–153; BP diastolic 60–76; PULSE 58–83; RESP 18; TEMP 36.1–36.6; O2SAT 96–98; BMI 36.0
[2025-10-12] MEDS: 0.9% Normal Saline (1000mL) 1,000 ML 125 ML IV ×4 (03:19→21:38)
[2025-10-12 04:45] LABS: Hematocrit 43.1 % (40-54); Hemoglobin 14.6 g/dL (13.0-16.5); Immature Granulocytes Count 0.020 X10^3/uL (0.0-0.0); Mean Corp Hgb Conc 33.9 g/dL (32-36); Mean Corpuscular Volume 95.6 fL (80-94); Mean Platelet Vol. 9.9 fl (6.2-12.0); NRBC Flagged by Analyzer 0 % (0-5); Platelet Count 253 K/mm3 (150-450); RBC Distribution Width CV 12.5 % (11.6-14.6); RBC Distribution Width SD 44.5 fl (35.1-43.9); Red Blood Count 4.51 M/mm3 (4.6-6.2); White Blood Count 8.6 K/mm3 (4.4-11.0)
[2025-10-12 05:47] LABS: Cholesterol 163 mg/dL (<=200); Low Density Lipoprotein Calc. 96 mg/dL; Triglycerides 146 mg/dL; Very Low Density Lipoprotein 29 mg/dL (5-40); cholesterol:hdl ratio screen 3.97
[2025-10-12 05:53] LABS: Anion Gap 8 (5-15); BUN 15 mg/dL (4-19); BUN/Creat Ratio 18.5 RATIO (10-20); Calcium,Total 9.0 mg/dL (7.6-11.0); Carbon Dioxide 27.1 mmol/L (21.0-32.0); Chloride 103 mmol/L (98-108); Estimated Creatinine Clearance 161.75 ml/min (50-250); Glucose 102 mg/dL (70-99); Potassium 4.0 mmol/L (3.3-5.1)
--- NOTE | 2025-10-12 09:13 | PCM.PN.HOSP ---
Subjective Subjective There was an NIH of 1 Objective Data Objective Data Vital Signs: Vital Signs Temp Pulse Resp BP Pulse Ox O2 Del Method 97.4 F L 63 18 133/72 H 96 Room Air 10/12/25 07:20 10/12/25 07:20 10/12/25 07:20 10/12/25 07:20 10/12/25 07:20 10/12/25 08:12 Oxygen Delivery Method Room Air Weight: 258 lb 6.108 oz Body Mass Index (BMI) 36.0 Intake & Output: Intake and Output for Last 24 Hours 10/11/25 10/12/25 10/13/25 03:59 03:59 03:59 Intake Total 2445.83 / 2445.83 Balance 2445.83 / 2445.83 Lab / Micro Data 10/12/25 04:30 10/12/25 04:30 Labs: Laboratory Results - last 24 hr 10/11/25 15:06: WBC 18.0 H, RBC 5.47, Hgb 17.7 H, Hct 50.2, MCV 91.8, MCH 32.4 H, MCHC 35.3, RDW Std Deviation 42.0, RDW Coeff of Dong 12.3, Plt Count 372, MPV 10.1, Immature Gran % (Auto) 0.400, Neut % (Auto) 66.2, Lymph % (Auto) 24.2, Arroyo % (Auto) 8.0, Eos % (Auto) 0.6, Baso % (Auto) 0.6, Absolute Neuts (auto) 11.9 H, Absolute Lymphs (auto) 4.35, Nucleated RBC % 0, PT 13.1, INR 1.0, APTT 23.2 L, Sodium 138, Potassium 4.0, Chloride 100, Carbon Dioxide 16.5 L, Anion Gap 22 H, BUN 12, Creatinine 0.94, Estim Creat Clear Calc 144.74, Est GFR (MDRD) Non-Af 109, BUN/Creatinine Ratio 12.4, Glucose 105 H, Calcium 10.7, Total Bilirubin 0.94, AST 31, ALT 31, Alkaline Phosphatase 111, Troponin T High Sens 11, Total Protein 8.1, Albumin 4.8, Globulin 3.3, Albumin/Globulin Ratio 1.4 10/11/25 15:46: POC Glucose 101 10/11/25 15:48: Ethyl Alcohol < 10.1 10/11/25 16:45: Urine Opiates Screen NEGATIVE, U Buprenorphine Qual NEGATIVE, Ur Oxycodone Screen NEGATIVE, Urine Methadone Screen NEGATIVE, Urine Fentanyl Screen NEGATIVE, Ur Barbiturates Screen NEGATIVE, Ur Phencyclidine Scrn NEGATIVE, Ur Amphetamines Screen NEGATIVE, U Benzodiazepines Scrn NEGATIVE, Urine Cocaine Screen NEGATIVE, U Cannabinoids Screen NEGATIVE 10/11/25 16:50: Urine Color Yellow, Urine Clarity Clear, Urine pH 6.5, Ur Specific [place] 1.010, Urine Protein 30 H, Urine Glucose (UA) Normal, Urine Ketones 15 H, Urine Occult Blood Negative, Urine Nitrite Negative, Urine Bilirubin Negative, Urine Urobilinogen Normal, Ur Leukocyte Esterase Negative, Urine RBC 0-5 SEEN, Urine WBC 0-5 SEEN, Ur Squamous Epith Cells 0-5 SEEN, Urine Bacteria 0 SEEN, Urine Mucus 0 SEEN 10/11/25 17:27: Troponin T Hi Sens 2 Hr 10/11/25 19:25: Troponin T Hi Sens 4Hr 10/12/25 04:30: WBC 8.6, RBC 4.51 L, Hgb 14.6, Hct 43.1, MCV 95.6 H, MCH 32.4 H, MCHC 33.9, RDW Std Deviation 44.5 H, RDW Coeff of Dong 12.5, Plt Count 253, MPV 9.9, Immature Gran % (Auto) 0.200, Neut % (Auto) 54.3, Lymph % (Auto) 29.1, Arroyo % (Auto) 11.3 H, Eos % (Auto) 4.4, Baso % (Auto) 0.7, Absolute Neuts (auto) 4.7, Absolute Lymphs (auto) 2.51, Nucleated RBC % 0, Sodium 137, Potassium 4.0, Chloride 103, Carbon Dioxide 27.1, Anion Gap 8, BUN 15, Creatinine 0.83, Estim Creat Clear Calc 161.75, Est GFR (MDRD) Non-Af 117, BUN/Creatinine Ratio 18.5, Glucose 102 H, Calcium 9.0, Triglycerides 146, Cholesterol 163, LDL Cholesterol, Calc 96, VLDL Cholesterol 29, HDL Cholesterol 41, Cholesterol/HDL Ratio 3.97 Radiography Diagnostic Testing: Radiology Impression Brain CT 10/11/25 15:22 IMPRESSION: No acute abnormality. These results will be communicated to the referring provider at the time of this dictation. The time of communication will be documented on the CT angiographic study Reading Location: [facility] Chest/Abdomen/Pelvis CTA 10/11/25 15:22 IMPRESSION: No acute abnormality Reading Location: [facility] Head/Neck CTA 10/11/25 15:22 IMPRESSION: Stroke Alert: Negative noncontrast CT. Angiogram negative The critical findings in the findings and impression above were relayed directly by me by telephone to Lupe Patterson on 10/11/2025 at 4:04 pm with readback verification. Reading Location: [facility] Physical Exam Narrative General: Alert, Oriented x3, Cooperative, No apparent distress HEENT: Atraumatic, PERRLA, EOMI, Normocephalic Oral: Dry mucosa Neck: Supple, No JVD Lungs: Clear to auscultation, Normal air movement, No rhonchi, No wheeze, No rales Cardiovascular: Regular rate, Regular Rhythm, Normal S1, Normal S2, No murmurs Abdomen: Soft, Non Tender, Non-Distended, No Hepato-splenomegaly Extremities: No edema, Capillary Refill Less than 3 Seconds Skin: No rashes, No breakdown Musculoskeletal: No Tenderness to Palpation of Joints or Extremities Neurological: Diminished sensation on his left upper and lower extremity, no drift, no weakness, speech intact Psych/Mental Status: Flat Assessment & Plan Assessment/Plan (1) Paresthesia: PLAN: Plan 1. Left upper extremity and left lower extremity paresthesia ? Unclear as to the etiology at this time given age and story stroke and TIA is less likely ? He was fine prior to drinking to the point of passing out and then when he woke up he had left-sided numbness. Per the ED physician he initially said that he had bilateral numbness and then switch to left upper and left lower extremity numbness only. He does state that he has weakness however he has no drift on my exam ? Still has some numbness therefore would like to get the MRI tomorrow 2. Anion gap metabolic acidosis ? Completely resolved with IV fluids, leukocytosis resolved as well 3. Anxiety/depression ? Stable ? Continue with his home medications 4. Essential HTN ? Allow for permissive hypertension ? Hold losartan 5. GERD ? Stable ? Continue with PPI DVT: SCDs Charges/Coding Visit Charges Inpatient E&M: 28196 Subs Hosp L2 NIHSS NIHSS Nursing Documentation NIHSS Nursing Documentation: NIHSS: Ischemic Stroke/TIA Start: 10/11/25 19:16 Text: For PCU Patients: NIH and Neuro Check every 4 Status: Active hours, PRN and with change in RN caregiver. Freq: [id number] Protocol: Activity Type Activity Date Activity User E-sign Co-sign Detail Recorded Client Recorded Date Recorded By Document 10/12/25 07:20 SKY [id number] 10/12/25 07:25 TN 10/12/25 07:20 NIH Stroke Scale [NIHSS] A score of 0 is normal or asymptomatic . Total possible score is 42. Inpatient: RN or Physician to activate a stroke alert for onset of new stroke symptoms or with NIHSS increase >/= 3 points. Following change in neurological status, NIHSS will be performed per physician order or more frequently PRN. -1a. Level of Consciousness 0 - Alert; keenly responsive -1b. LOC Questions 0 - Answers BOTH questions correctly -1c. LOC Commands 0 - Performs BOTH tasks correctly -2. Best Gaze 0 - Normal -3. Visual 0 - No visual loss -4. Facial Palsy 1 - Minor paralysis ( flattened nasolabial fold , asymmetry on smiling) -5a. Left Arm 0 - No drift; arm holds 90 ( or 45) degrees for full 10 seconds -5b. Right Arm 0 - No drift; arm holds 90 ( or 45) degrees for full 10 seconds -6a. Left Leg 0 - No drift; leg holds 30- degree position for full 5 seconds -6b. Right Leg 0 - No drift; leg holds 30- degree position for full 5 seconds -7. Limb Ataxia 0 - Absent -8. Sensory 1 - Mild-to- moderate sensory loss; -9. Best Language 0 - No aphasia; normal -10. Dysarthria 0 - Normal -11. Extinction and Inattention 0 - No abnormality -Total 2 Query Text:A score of 0 is normal or asymptomatic. Total possible score is 42 . ED: Notify Physician for NIHSS increase by > / = 3 points. Inpatient: RN or Physician to activate a stroke alert for NIHSS increase of > / = 3 points. Coma Scale [Assess] -Eye Opening Spontaneous -Motor Obeys Commands -Verbal Oriented [Total] -Coma Scale Total 15
[2025-10-13 02:00] VITALS: BP 122/68; PULSE 64; RESP 18; TEMP 36.6; O2SAT 99
--- NOTE | 2025-10-13 05:55 | MRI_ITS ---
PROCEDURE: BRAIN WITHOUT CONTRAST 10/13/2025 REASON FOR EXAM: PARASTHESIAS TECHNIQUE: Procedure Code: MRIBR Modality: MR Procedure: BRAIN WITHOUT CONTRAST Multiplanar and multisequence images were obtained. COMPARISON: CT head dated 10/11/2025. FINDINGS: A punctate focus of FLAIR hyperintensity is noted within the left centrum semiovale, nonspecific and of doubtful clinical significance. Otherwise the brain parenchyma appears unremarkable. Brain parenchyma appears unremarkable. The sullivan-white matter differentiation is appropriate. The ventricles are normal in size and configuration. No midline shift. The midline structures are intact, specifically the corpus callosum, septum pellucidum, pituitary gland, and cerebellar vermis. The cervicomedullary junction appears unremarkable. Minimal to mild mucosal thickening throughout the paranasal sinuses. The bilateral mastoid air cells are clear. Diffusion-weighted images demonstrate no restricted diffusion. MRI/Brain without Contrast IMPRESSION: Punctate focus of nonspecific FLAIR hyperintensity within the left centrum semi ovale, of doubtful clinical significance. Minimal to mild paranasal sinusitis. Reading Location: [id number]
[2025-10-13 05:58] VITALS: BP 149/110; PULSE 82; RESP 18; TEMP 36; O2SAT 96
[2025-10-13] MEDS: 0.9% Normal Saline (1000mL) 1,000 ML 125 ML IV (06:00)
[2025-10-13 06:34] VITALS: O2SAT 95
[2025-10-13 10:00] VITALS: BP 150/60; PULSE 62; RESP 16; TEMP 36.6; O2SAT 99
--- NOTE | 2025-10-13 10:48 | DCINST_ITS ---
Discharge Instructions DC O2, CPAP, BIPAP needs Home O2 Discharge instructions: No Dressing / Incision Discharge Activity: Return to Normal Activity Dressing / Incision Call your doctor if you observe: Fever of 101 or Higher, Shortness of breath, Dizziness, Fainting spells, Swelling in the ankles, Chest pain and Increased palpitations (irregular heartbeat) Follow Up Care Test Results: Test results from this visit will be discussed in further detail at your follow- up appointment, if applicable. Discharge Plan Admission Admit Date/Time: 10/11/25 18:27 Attending Provider: Franklin Macias Primary Care Provider: Jeaneth Norris NP Instructions Patient Instructions: After a Concussion, Concussion Dc Discharge Orders/Prescriptions Prescriptions: Continued oxybutynin chloride 10 mg tablet extended release 24hr 10 mg PO QDAY Qty: 90 3RF omeprazole 40 mg capsule,delayed release(DR/EC) 40 mg PO QDAY Qty: 90 3RF losartan 100 mg tablet 100 mg PO DAILY Qty: 90 3RF lamotrigine [Lamictal] 150 mg tablet 150 mg PO QDAY lorazepam 0.5 mg tablet 0.5 mg PO QDAY PRN (Reason: anxiety) fluoxetine 20 mg capsule 20 mg PO QDAY fluoxetine 10 mg capsule 10 mg PO DAILY Patient Comments: HAS NOT PICKED UP YET mirtazapine 15 mg tablet 7.5 mg PO QHS atomoxetine 25 mg capsule 25 mg PO DAILY Patient Comments: HAS NOT STARTED YET Referrals / Follow Up: Jeaneth Norris NP, [employer]STRUCTOR-[employer] [Primary Care Provider, Family Practice] Disposition Disposition (needs filled in before D/C Order can be placed): Home, Self Care
--- NOTE | 2025-10-13 10:59 | PHA.DC.MR.R ---
Pharmacy CT Med Reconciliation Pharmacy Service has performed discharge medication reconciliation for this patient. The patient's discharge medication list was reviewed for discrepancies and discrepancies were resolved. Medications at Discharge Home Medications losartan 100 mg tablet 100 mg PO DAILY #90 tabs 09/25/25 omeprazole 40 mg capsule,delayed release 40 mg PO QDAY #90 caps 09/25/25 oxybutynin chloride 10 mg tablet,extended release 24 hr 10 mg PO QDAY #90 tabs 09/25/25 fluoxetine 20 mg capsule 20 mg PO QDAY 09/26/25 lamotrigine 150 mg tablet (Lamictal) 150 mg PO QDAY 09/26/25 lorazepam 0.5 mg tablet 0.5 mg PO QDAY PRN anxiety 09/26/25 atomoxetine 25 mg capsule 25 mg PO DAILY 10/11/25 fluoxetine 10 mg capsule 10 mg PO DAILY 10/11/25 mirtazapine 15 mg tablet 7.5 mg PO QHS 10/11/25
--- NOTE | 2025-10-13 12:10 | CASEMGMT ---
Patient has order for discharge. RN CM in to discuss needs at discharge, at bedside. Patient denies needs or help at discharge. Patient had no further questions or concerns.
--- NOTE | 2025-10-13 14:13 | CASEMGMT ---
Social Work Per imaging pt negative for stroke, therefore PHQ9 not completed. TAIWO Newton
--- NOTE | 2025-10-13 16:04 | DS.PCM_ITS ---
Providers Date of Admission: 10/11/25 Primary Care Physician: MARGAUX Rodrigues Reason For Visit: TIA Diagnosis Discharge Diagnosis (1) Paresthesia: Status: Acute Code(s): R20.2 - Paresthesia of skin Medications at Discharge Home Medications losartan 100 mg tablet 100 mg PO DAILY blood pressure #90 tabs 09/25/25 omeprazole 40 mg capsule,delayed release 40 mg PO QDAY #90 caps 09/25/25 oxybutynin chloride 10 mg tablet,extended release 24 hr 10 mg PO QDAY #90 tabs 09/25/25 fluoxetine 20 mg capsule 20 mg PO QDAY 09/26/25 lamotrigine 150 mg tablet (Lamictal) 150 mg PO QDAY 09/26/25 lorazepam 0.5 mg tablet 0.5 mg PO QDAY PRN anxiety 09/26/25 atomoxetine 25 mg capsule 25 mg PO DAILY 10/11/25 fluoxetine 10 mg capsule 10 mg PO DAILY 10/11/25 mirtazapine 15 mg tablet 7.5 mg PO QHS 10/11/25 Hospital Course Operations None Procedures None Summary of Care Provided Minutes Spent on Discharge: 34 Hospital Course: Per HPI: GERRI WALLER, is a 34 M who presents to the hospital after at night of drinking Monday night into Monday morning. Apparently he drank so much that he blacked out and his friends took him to an outside ER where according to family they did not provide any care including no fluids. He was sent home from the emergency room and had an episode of vomiting and diarrhea and then developed numbness on the left side of his body and left side of his face. Family brought him in because of these new findings and they state that on the way here he was not making any verbal sense. He is only an NIH of 1 secondary to his sense of decreased sensation. CTA of the head and neck was unremarkable and CT of the brain was normal. He does have an elevated anion gap with a bicarb of 16.5 with a white count of 18 consistent with dehydration due to vomiting and diarrhea. He did receive a liter of fluids in the emergency room and had a CTA of his chest abdomen and pelvis done which was also negative for any pathology. He does have some abdominal pain on exam but this is muscular in nature due to his emesis. Hospital Course: 1. Left upper extremity and left facial paresthesia with headache and retrograde amnesia likely from concussion?34-year-old male presented to the hospital approximately 12 hours after drinking to the point of blacking out. He was having a headache as well as some neck pain so there is some concern for head trauma and concussion which would fit with his amnesia. However he was also having left-sided numbness and tingling which has improved to the point of resolving in his left lower extremity and becoming minimal in his left upper extremity and left face. MRI was essentially unremarkable with no signs of acute stroke, and a punctate focus of nonspecific FLAIR hyperintensity within the left centrum semiovale of doubtful clinical significance. I do recommend that he follow-up with PCP as an outpatient for monitoring, and I did provide him with paperwork concussion protocol. CT of the head and neck was unremarkable and CT of the chest abdomen pelvis was also normal. Initially on admission he did have an anion gap metabolic acidosis that was due to dehydration resolved with IV fluids as did his leukocytosis indicating no infection. I discussed with him and his the plan for discharge today and he expressed understanding of the risk and benefits of going home and would like to go home today. He did not want to wait for the results of the MRI so I do recommend he follow-up with his PCP to obtain these results. 2. Anxiety, depression, essential hypertension, GERD are all chronic medical conditions which complicate his care. His home medications were continued where appropriate Physical Exam Narrative General: Alert, Oriented x3, Cooperative, No apparent distress HEENT: Atraumatic, PERRLA, EOMI, Normocephalic Oral: Moist mucosa Neck: Supple, No JVD Lungs: Clear to auscultation, Normal air movement, No rhonchi, No wheeze, No rales Cardiovascular: Regular rate, Regular Rhythm, Normal S1, Normal S2, No murmurs Abdomen: Soft, Non Tender, Non-Distended, No Hepato-splenomegaly Extremities: No edema, Capillary Refill Less than 3 Seconds Skin: No rashes, No breakdown Musculoskeletal: No Tenderness to Palpation of Joints or Extremities Neurological: Diminished sensation on his left upper extremity, no drift, no weakness, speech intact Psych/Mental Status: Flat Weight / BMI Weight Weight: 258 lb 6.108 oz Body Mass Index (BMI) 36.0 ABG / Lab / Microbiology Data 10/12/25 04:30 10/12/25 04:30 Radiography Diagnostic Testing: Radiology Impression Brain MRI 10/13/25 05:55 IMPRESSION: Punctate focus of nonspecific FLAIR hyperintensity within the left centrum semiovale, of doubtful clinical significance. Minimal to mild paranasal sinusitis. Reading Location: [id number] D/C Instructions Call your doctor if you observe: Fever of 101 or Higher, Shortness of breath, Dizziness, Fainting spells, Swelling in the ankles, Chest pain and Increased palpitations (irregular heartbeat) DC O2, CPAP, BIPAP Needs Home O2 Discharge instructions: No Meaningful Use Info Meaningful Use Meaningful Use Diagnoses (Choose all that apply): None applicable Discharge Plan Admission Admit Date/Time: 10/11/25 18:27 Attending Provider: Franklin Macias Primary Care Provider: Jeaneth Norris [employer]BLER Instructions Patient Instructions: After a Concussion, Concussion Dc Discharge Orders/Prescriptions Prescriptions: Continued oxybutynin chloride 10 mg tablet extended release 24hr 10 mg PO QDAY Qty: 90 3RF omeprazole 40 mg capsule,delayed release(DR/EC) 40 mg PO QDAY Qty: 90 3RF losartan 100 mg tablet 100 mg PO DAILY Qty: 90 3RF lamotrigine [Lamictal] 150 mg tablet 150 mg PO QDAY lorazepam 0.5 mg tablet 0.5 mg PO QDAY PRN (Reason: anxiety) fluoxetine 20 mg capsule 20 mg PO QDAY fluoxetine 10 mg capsule 10 mg PO DAILY Patient Comments: HAS NOT PICKED UP YET mirtazapine 15 mg tablet 7.5 mg PO QHS atomoxetine 25 mg capsule 25 mg PO DAILY Patient Comments: HAS NOT STARTED YET Referrals / Follow Up: Jeaneth Norris NP, [employer]BLER-[employer] [Primary Care Provider, Family Practice] Disposition Disposition (needs filled in before D/C Order can be placed): Home, Self Care Charges/Coding Visit Charges Inpatient E&M: 43571 Disch Hosp >30min
== END 2025-10-13 15:28 | disposition home or self-care (01) ==
LOC: ED 16:01 → PCU 18:50
PROVIDERS: Admitting Provider Family Medicine; Emergency Provider Student in an Organized Health Care Education/Training Program; PCP Nurse Practitioner; Visit Provider Family Medicine
DX: R20.2 Paresthesia of skin (principal); F33.2 Major depressive disorder, recurrent severe without psychotic features; R10.9 Unspecified abdominal pain; R19.7 Diarrhea, unspecified; R11.2 Nausea with vomiting, unspecified; R06.02 Shortness of breath; F41.0 Panic disorder [episodic paroxysmal anxiety]; I10 Essential (primary) hypertension; K21.9 Gastro-esophageal reflux disease without esophagitis; R07.89 Other chest pain; Z79.899 Other long term (current) drug therapy; F17.290 Nicotine dependence, other tobacco product, uncomplicated; F17.220 Nicotine dependence, chewing tobacco, uncomplicated; R29.810 Facial weakness; R47.9 Unspecified speech disturbances; E87.20 Acidosis, unspecified; R53.1 Weakness; R41.2 Retrograde amnesia
CPT/HCPCS: 36415; 70450; 70496; 70498; 70551; 71275; 74174; 80048; 80053; 80061; 80307; 81001; 82077; 82962; 84484; 85025; 85610; 85730; 92610; 93005; 94762; 96360; 96361; 97129; 97161; 97165; 97535; 97802; 99221; 99285; Q9967; A4216; G0378